=== PATIENT | male | born 1960 | race Caucasian/White ===

== ENCOUNTER 2019-11-23 08:03 | Outpatient (CLI) | payer OTHER, SELFPAY ==
--- NOTE | ~2019-11-23 | US_ITS ---
US arterial ankle brachial ind INDICATION: From vascular disease. Intermittent claudication. TECHNIQUE: Segmental pressures and plethysmographic and Doppler waveforms of the brachial and lower e xtremity arteries were obtained. COMPARISON: None. FINDINGS: Right and left brachial artery pressures of 150 mm Hg and 163 mm Hg, respectively, are concordant (no rmal difference <= 30 mmHg). The right ankle-brachial index (ZACHARY) is 1.16 (normal >= 0.9-1.0). The right great toe-brachial index (TBI) is 0.87 (normal >= 0.60). The left ZACHARY is 1.03. The left TBI is 0.5. IMPRESSION: 1. Diminished left toe brachial index, compatible with mild peripheral arterial disease below the ank le. 2: Normal ankle-brachial indices. Reviewed, dictated and finalized at location A. IMPRESSION: 1. Diminished left toe brachial index, compatible with mild peripheral arterial disease below the ankle. 2: Normal ankle-brachial indices.
== END 2019-11-23 08:04 | disposition home or self-care (01) ==
PROVIDERS: PCP Physician Assistant; Visit Provider Physician Assistant
DX: I73.9 Peripheral vascular disease, unspecified (principal)
CPT/HCPCS: 93922

== ENCOUNTER 2020-06-16 12:34 | Outpatient (CLI) | payer OTHER, MEDICAID, SELFPAY ==
--- NOTE | 2020-06-16 15:00 | NEURO_ITS ---
Patient Number: [id number] Impression: # Known insulin dependent diabetic complains of numbness and weakness of lower extremities. # Severe motor and sensory neuropathy # Needle/EMG exam revealed decreased motor unit potentials in all muscles tested, more distally. # No active denervation potentials were noted. # Severe diabetic neuropathy. Nerve Conduction Studies Anti Sensory Summary Table Stim Site NR Peak (ms) P-T Amp (?V) Site1 Site2 Delta-P (ms) Dist (cm) Cecil (m/s) Left Sup Fibular Anti Sensory (Ant Lat Mall) NO RESPONSE 14 cm NR 14 cm Ant Lat Mall 16.0 Right Sup Fibular Anti Sensory (Ant Lat Mall) NO RESPONSE 14 cm NR 14 cm Ant Lat Mall 16.0 Left Sural Anti Sensory (Lat Mall) NO RESPONSE Calf NR Calf Lat Mall 16.0 Right Sural Anti Sensory (Lat Mall) DISPERSED RESPONSE Calf NR Calf Lat Mall 16.0 Motor Summary Table Stim Site NR Onset (ms) O-P Amp (mV) Site1 Site2 Delta-0 (ms) Dist (cm) Cecil (m/s) Left Peroneal Motor (Vastus Med) NO RESPONSE Ankle NR Popit NR Right Peroneal Motor (Vastus Med) NO RESPONSE Ankle NR Popit NR Left Tibial Motor (Abd Dimas Brev) NO RESPONSE Ankle NR Knee NR Right Tibial Motor (Abd Dimas Brev) NO RESPONSE Ankle NR Knee NR F Wave Studies NR F-Lat (ms) L-R F-Lat (ms) Left Peroneal (Mrkrs) (EDB) NO RESPONSE NR Right Peroneal (Mrkrs) (EDB) NO RESPONSE NR Left Tibial (Mrkrs) (Abd Hallucis) NO RESPONSE NR Right Tibial (Mrkrs) (Abd Hallucis) NO RESPONSE NR EMG Side Muscle Nerve Root Ins Act Fibs Amp Dur Recrt Comment Right AntTibialis Dp Br Fibular L4-5 Nml Nml Nml >12ms Reduced Right Gastroc Tibial S1-2 Nml Nml Nml >12ms Reduced Right Fibularis Long Sup Br Fibular L5-S1 Nml Nml Nml >12ms Reduced Right Flex Dig Long Tibial L5-S2 Nml Nml Nml >12ms Reduced Right Ext Dig Brev Dp Br Fibular L5, S1 Nml Nml Nml >12ms Reduced Left AntTibialis Dp Br Fibular L4-5 Nml Nml Nml >12ms Reduced Left Gastroc Tibial S1-2 Nml Nml Nml >12ms Reduced Left Fibularis Long Sup Br Fibular L5-S1 Nml Nml Nml >12ms Reduced Left Flex Dig Long Tibial L5-S2 Nml Nml Nml >12ms Reduced Left Ext Dig Brev Dp Br Fibular L5, S1 Nml Nml Nml >12ms Reduced Right QuadratusFem QuadFemoris L4-5, S1 Nml Nml Nml >12ms Reduced Left QuadratusFem QuadFemoris L4-5, S1 Nml Nml Nml >12ms Reduced Right ExtHallLong Dp Br Fibular L5, S1 Nml Nml Nml >12ms Reduced Right Ext Dig Long Dp Br Fibular L5-S1 Nml Nml Nml >12ms Reduced Left ExtHallLong Dp Br Fibular L5, S1 Nml Nml Nml >12ms Reduced Left Ext Dig Long Dp Br Fibular L5-S1 Nml Nml Nml >12ms Reduced MTDD
== END 2020-06-16 12:35 | disposition home or self-care (01) ==
LOC: ANHNEURO 12:36
PROVIDERS: PCP Physician Assistant; Visit Provider Physician Assistant
DX: E11.42 Type 2 diabetes mellitus with diabetic polyneuropathy (principal)
CPT/HCPCS: 95886; 95910

== ENCOUNTER 2024-10-14 11:02 | Inpatient (IN) | payer OTHER, MEDICAID, SELFPAY ==
[2024-10-14] VITALS (26 sets, daily range): BP systolic 93–185; BP diastolic 65–90; PULSE 73–114; RESP 14–20; TEMP 36.1–36.8; O2SAT 96–100; BMI 38.5
--- NOTE | ~2024-10-14 | XR_ITS ---
EXAMINATION: XR chest 1V portable DATE: 10/19/2024 15:28 INDICATION: Pneumonia. TECHNIQUE: A single frontal view of the chest was obtained. COMPARISON: Chest single view 10/14/2024 FINDINGS: There is no pneumonia, pleural effusion, or pneumothorax. The heart size is normal. IMPRESSION: 1. No acute cardiopulmonary disease. Reviewed, dictated and finalized at location A. ENTARY ELL TEACHER
--- NOTE | ~2024-10-14 | CT_ITS ---
EXAMINATION: CT brain wo con DATE: 10/14/2024 11:39 INDICATION: Altered level of consciousness. TECHNIQUE: Computed tomography (CT) of the head was performed without intravenous contrast. The mA wa s adjusted according to patient size. Iterative reconstruction technique was employed. The dose-lengt h product was 681.00 mGy-cm. COMPARISON: Head CT 07/04/2017 FINDINGS: There is no intracranial hemorrhage, acute infarction, or abnormal intracranial mass lesion . The ventricles are normal in size. There is mucosal thickening in the paranasal sinuses. There is d ependent fluid in the maxillary sinuses. The orbits are normal. There is a trace left mastoid effusio n. IMPRESSION: 1. Normal brain. Reviewed, dictated and finalized at location A. E FIRST AID IMPRESSION: 1. Normal brain.
--- NOTE | ~2024-10-14 | CT_ITS ---
EXAMINATION: CT chest abdomen pelvis wo con DATE: 10/20/2024 14:37 INDICATION: Anemia. Pneumonia. TECHNIQUE: Computed tomography (CT) of the chest, abdomen, and pelvis was performed without intraveno us contrast. Automated exposure control and iterative reconstruction technique were employed. The dos e-length product was 1829.50 mGy-cm. COMPARISON: None FINDINGS: CHEST CT: There is mild atelectasis bilaterally. There are groundglass and airspace opacities in right lower lo be, consistent with pneumonia. There is a trace right pleural effusion. The heart size is normal. The re are coronary artery calcifications. No pericardial effusion. There is bilateral gynecomastia. Ther e is chronic anterior wedging of multiple vertebral bodies. There is severe thoracic spondylosis. ABDOMEN/PELVIS CT: The liver, gallbladder, spleen, pancreas, and adrenal glands, and kidneys are normal. The prostate is mildly enlarged. There is prominent fat in the inguinal canals that may be hernias. There are no dil ated loops of bowel. The appendix is normal. There are no pathologically enlarged lymph nodes. There is no free intraperitoneal fluid. There is a total right hip arthroplasty. There is severe lumbar spo ndylosis. IMPRESSION: 1. Right lower lobe pneumonia. Reviewed, dictated and finalized at location A. ON TIER
--- NOTE | ~2024-10-14 | XR_ITS ---
EXAMINATION: XR chest 1V DATE: 10/14/2024 11:42 INDICATION: Shortness of breath. TECHNIQUE: A single frontal view of the chest was obtained. COMPARISON: Chest 2 views 03/09/2015 FINDINGS: Sensitivity is decreased by obesity. There is no pneumonia, pleural effusion, or pneumothor ax. The heart size is normal. IMPRESSION: 1. No acute cardiopulmonary disease. Reviewed, dictated and finalized at location A. MODYNAMIC PHYSICIST
--- NOTE | 2024-10-14 11:08 | ECG_ITS ---
Test Date: 2024-10-14 11:09:36 Measurements Intervals [place] Rate: 87 P: -8 MO: 194 QRS: 266 QRSD: 155 T: 15 QT: 418 QTc: 504 Interpretive Statements SINUS RHYTHM RIGHT BUNDLE BRANCH BLOCK LEFT POSTERIOR FASCICULAR BLOCK BASELINE ARTIFACT- I, II, III, AVR, AVL, AVF, V2, V4 ABNORMAL ECG No previous ECG available for comparison Electronically Signed On 10-14-2024 11:17:14 TAPPER HELPER by Nicolás Sims D.O.
--- NOTE | 2024-10-14 11:27 | ED_ITS ---
HPI - SOB/Dyspnea General Chief Complaint: Shortness of Breath/Dyspnea Stated Complaint: SOB Time Seen by Provider: 10/14/24 11:13 History of Present Illness HPI Narrative: Pt presents with SOB for two weeks. Pt diagnosed with Covid 2 weeks ago. Pt reportedly increased SOB. Pt was answering questions for RN and EMS earlier but now staring blankly ahead and not responding to questions from me so difficult to get any history. Pt tachypneic and hypotensive. Related Data Home Medications ?Medication ?Instructions ?Recorded ?Confirmed ?Last Taken ?Type amoxicillin 875 mg-potassium tablet PO Q12H 10/14/24 Unknown History clavulanate 125 mg tablet aspirin 81 mg tablet,delayed mg 10/14/24 Unknown History release bictegravir 50 mg-emtricitabine tablet PO DAILY 10/14/24 Unknown History 200 mg-tenofovir alafenam 25 mg tablet (Biktarvy) carvedilol 6.25 mg tablet mg PO Q12H 10/14/24 Unknown History empagliflozin 25 mg tablet mg PO DAILY 10/14/24 Unknown History (Jardiance) fluoxetine 20 mg capsule mg PO QPM 10/14/24 Unknown History gabapentin 600 mg tablet mg PO Q12H 10/14/24 Unknown History glipizide 10 mg tablet mg PO BID 10/14/24 Unknown History insulin glargine 100 unit/mL (3 unit subcut QPM 10/14/24 Unknown History mL) subcutaneous pen (Lantus Solostar U-100 Insulin) lisinopril 20 tablet PO DAILY 10/14/24 Unknown History mg-hydrochlorothiazide 25 mg tablet naproxen 500 mg tablet mg PO Q12H 10/14/24 Unknown History pravastatin 40 mg tablet mg PO DAILY 10/14/24 Unknown History tamsulosin 0.4 mg capsule mg PO Q24H 10/14/24 Unknown History Allergies Allergy/AdvReac Type Severity Reaction Status Date / Time abacavir Allergy Unknown platelet Verified 10/14/24 16:59 Sulfa (Sulfonamide Allergy Unknown Rash Verified 10/14/24 16:59 Antibiotics) Review of Systems 2 Review of Systems: ROS unobtainable: Yes unobtainable due to mental status PMFSH Surgical History Surgical History (Updated 06/17/23 @ 10:01 by Hillary Cui [facility]) History of tonsillectomy (~1993) Family History Family History (Updated 10/14/24 @ 16:48 by Ninfa Jorge RN) Sibling Acute myocardial infarction Diabetes mellitus Mother Asthma Diabetes mellitus Other Colon cancer Father Chronic obstructive pulmonary disease Social History Social History (Updated 06/13/23 @ 09:48 by Hillary Horn MA) Smoking status: Never smoker Second hand tobacco smoke exposure: Yes Alcohol intake: former Substance use: never Substance use type: does not use Do You Feel Safe in your Home?: Yes Lack of Transportation: No Lack of Food: Never True Current Housing: I Have Housing Concerned About Future Housing: No Difficulty Paying Gas/Electric Bills: No Difficulty Paying for Meds: No Currently Unemployed: No Education: High School Diploma/GED Difficulty w/ Childcare or Family Care: No Gender identity (if verbalized by the patient): Male Spiritual care concerns: No Exam 2 Const: General: confusion Limitations: altered mental status Other: not responding to questions Eyes: EOM: EOMs intact bilaterally Resp: Effort & Inspection: tachypneic Auscultation: crackles Cardio: Rate: tachycardic Rhythm: regular rhythm GI: GI Palp: Yes Soft to palpation Auscultation: normal bowel sounds Skin: General skin exam: normal color Rashes: no rashes Wounds: no wounds Neuro: General: patient oriented x3, moves all extremities, no meningeal signs, no focal motor deficits and CN's II-XI intact bilaterally Cranial nerves: Yes Nystagmus not present Speech: normal speech Gait exam (Neuro): Normal gait present Extrem: General: normal to inspection and no clubbing, cyanosis or edema Psych: Mental Status: mental status grossly normal Affect: normal affect Attitude: cooperative Course Vital Signs Vital signs: Vital Signs Temperature 97.6 F 10/14/24 11:09 Pulse Rate 88 10/14/24 11:09 Respiratory Rate 18 10/14/24 11:09 Blood Pressure 93/75 L 10/14/24 11:09 Pulse Oximetry 96 10/14/24 11:09 Oxygen Delivery Room Air 10/14/24 11:09 Temperature 97.0 F L 10/14/24 16:40 Pulse Rate 85 10/14/24 16:40 Respiratory Rate 20 10/14/24 16:40 Blood Pressure 185/90 H 10/14/24 16:40 Pulse Oximetry 100 10/14/24 16:40 Oxygen Delivery Room Air 10/14/24 11:34 MDM - SOB/Dyspnea MDM Narrative Medical decision making narrative: Pt originally presented with SOB now has altered mental status and low bp. will do septic work up and CT and give bolus of fluids. Pt BP improved, cxr neg. wbc 14k, BUN slight elvated so a bit dry. flu a and rsv pos. Pt says he lives alone and too weak to go home. Pt alert and oriented x 3 now.discussed with Linnea and agrees to admit. Lab Data 10/14/24 11:25 10/14/24 11:25 Labs: Lab Results 10/14/24 10/14/24 10/14/24 Range/Units 11: 11: 12:04 WBC 14.6 H (4.5-10.0) K/mm3 RBC 3.61 L (4.6-6.20) M/mm3 Hgb 10.6 L (14.0-18.0) g/dL Hct 32.3 L (42.0-52.0) % MCV 89.5 (80-100) fl MCH 29.4 (26-34) pg MCHC 32.8 (32-36) g/dl RDW 14.9 H (11.5-14.5) % Plt Count 421 H (150-375) k/mm3 MPV 10.0 (7.4-10.4) fl Immature Gran % (Auto) 2.0 H (0-0.5) % Neut % (Auto) 73.2 H (45.5-73.1) % Lymph % (Auto) 14.6 L (18.3-44.2) % Nicholas % (Auto) 9.3 H (2.6-8.5) % Eos % (Auto) 0.7 (0-4.4) % Baso % (Auto) 0.2 (0.2-1.2) % Lymph # (Auto) 2.13 (0.9-3.2) K/mm3 Nicholas # (Auto) 1.4 H (0.1-0.6) K/mm3 Eos # (Auto) 0.1 (0-0.3) K/mm3 Baso # (Auto) 0.0 (0.0-0.1) K/mm3 Abs Immat Gran (auto) 0.29 H (0.00-0.031) K/mm3 Absolute Neuts (auto) 10.7 H (1.3-6.7) K/mm3 Absolute Nucleated RBC 0.030 H (0.0-0.012) K/mm3 Nucleated RBC % 0.2 (0.0-0.2) % Sodium 135 L (137-145) mmol/L Potassium 4.5 (3.4-5.0) mmol/L Chloride 98 (98-107) mmol/L Carbon Dioxide 15 L (22-30) mmol/L Anion Gap 22 H (4-12) mmol/L BUN 35 H (9-20) mg/dL Creatinine 1.06 (0.7-1.3) mg/dL Estim Creat Clear Calc Not Reportable Estimated GFR > 60 (59 - ) Glucose 210 H (65-110) mg/dL Lactic Acid 2.5 H (0.7-2.0) mmol/L Calcium 8.8 (8.4-10.2) mg/dL Total Bilirubin 1.3 (0.2-1.3) mg/dL AST 31 (17-59) U/L ALT 33 (6-50) U/L Alkaline Phosphatase 94 (38-126) U/L Total Protein 7.0 (6.3-8.2) g/dL Albumin 4.1 (3.5-5.1) g/dL Urine Color Yellow (Yellow) Urine Appearance Clear (Clear) Urine pH 5.0 (5.0-9.0) Ur Specific Montgomery 1.026 (1.001-1.035) Urine Protein Trace (Negative) mg/dL Urine Glucose (UA) 3+ H (Negative) mg/dL Urine Ketones 2+ H (Negative) mg/dL Ur Blood (Man) Negative (Negative) Urine Nitrate Negative (Negative) Urine Bilirubin Negative (Negative) Urine Urobilinogen 1.0 (<2.0) mg/dL Leukocyte Esterase Rfl Negative (Negative) SIGRID/UL Urine RBC 0-2 (0-2) /hpf Urine WBC 0-5 (0-3) /hpf Ur Squamous Epith Cells None seen (Few) /hpf Urine Bacteria None seen /hpf Urine Casts 0-2 Influenza A (RT-PCR) Positive A (Negative) Influenza B (RT-PCR) Negative (Negative) RSV (RT-PCR) Positive A (Negative) SARS-CoV-2 RNA (RT-PCR) Negative (Negative) Discharge Plan Discharge Clinical Impression: Influenza A, Respiratory syncytial virus (RSV) infection, Weakness Patient Disposition: Still a Patient Condition: Stable
[2024-10-14 11:38] LABS: Basophils Percent Auto 0.2 % (0.2-1.2); Eosinophils Absolute Auto 0.1 K/mm3 (0-0.3); Eosinophils Percent Auto 0.7 % (0-4.4); Hematocrit 32.3 % (42.0-52.0); Hemoglobin 10.6 g/dL (14.0-18.0); Immature Granulocyte Absolute 0.29 K/mm3 (0.00-0.031); Lymphocytes Absolute Auto 2.13 K/mm3 (0.9-3.2); Lymphocytes Percent Auto 14.6 % (18.3-44.2); Mean Corpuscular HGB Conc 32.8 g/dl (32-36); Mean Corpuscular Hemoglobin 29.4 pg (26-34); Mean Corpuscular Volume 89.5 fl (80-100); Monocytes Absolute Auto 1.4 K/mm3 (0.1-0.6); Monocytes Percent Auto 9.3 % (2.6-8.5); Neutrophils Absolute Auto 10.7 K/mm3 (1.3-6.7); Neutrophils Percent Auto 73.2 % (45.5-73.1); Nucleated Red Blood Cells Perc 0.2 % (0.0-0.2); Platelet Count Result 421 k/mm3 (150-375); Red Blood Count 3.61 M/mm3 (4.6-6.20); Red Cell Distribution Width 14.9 % (11.5-14.5); White Blood Count 14.6 K/mm3 (4.5-10.0)
[2024-10-14] MEDS: SODIUM CHLORIDE 0.9% IV 1,000 ML 999 ML IV CONT ×2 (11:44→14:03)
[2024-10-14 11:46] LABS: Lactic Acid Reflex 2.5 mmol/L (0.7-2.0)
[2024-10-14 11:47] LABS: Alanine Aminotransferase 33 U/L (6-50); Albumin Level 4.1 g/dL (3.5-5.1); Alkaline Phosphatase 94 U/L (38-126); Anion Gap 22 mmol/L (4-12); Aspartate Amino Transferase 31 U/L (17-59); Bilirubin,Total 1.3 mg/dL (0.2-1.3); Blood Urea Nitrogen 35 mg/dL (9-20); Calcium 8.8 mg/dL (8.4-10.2); Carbon Dioxide 15 mmol/L (22-30); Chloride 98 mmol/L (98-107); Estimated Glomerular Filt Rate > 60; Glucose 210 mg/dL (65-110); Potassium 4.5 mmol/L (3.4-5.0); Sodium 135 mmol/L (137-145)
--- OUTSIDE RECORDS SUMMARY | 2024-10-14 12:06 | XMS_ITS | Patient Health Summary ---
Author Organization [facility] Address [address] [place] [address] Care Team Providers Care Natural Remedy Consultant Name Role Phone Unavailable Primary Care Provider Unavailabl e Note from [facility],non-owned Affiliates and Associated Physician Practices is amultiple site organization consisting of ambulatory clinics and hospital sitesin [place], [place], [place] and [place]. This disclosure is being madepursuant to the Care Everywhere program and may not contain all information available regarding this patient. Last updated 18.[facility] Allergies * Abacavir * Zidovudine(Hematologic) -High Criticality * Sulfa Drugs Medications * Be aware that medications may not be up to date on this document. Alwaysverify current medications with the patient. * glipiZIDE (GLUCOTROL) 5 MG tablet Take 5 mg by mouth daily before breakfast * pravastatin (PRAVACHOL) 40 MG tablet Take 40 mg by mouth once daily * carvedilol (COREG) 6.25 MG tablet Take 6.25 mg by mouth 2 times daily with morning and evening meal * htsvkkjfn-dyrpspaejv-pjitedqpq (ATRIPLA) 600-200-300 MG tablet(Started 07/07/2017) Take 1 tablet by mouth at bedtime Reasons: HIV Disease * lisinopril-hydroCHLOROthiazide (PRINZIDE; ZESTORETIC) 20-25 MG tablet Take 1 tablet by mouth at bedtime Reasons: High Blood Pressure Disorder * insulin detemir (LEVEMIR) vial(Started 07/07/2017) Inject 50 Units subcutaneously daily with breakfast Reasons: Type 2 Diabetes * busPIRone (BUSPAR) 10 MG tablet(Started 07/09/2017) Take 1 tablet by mouth 2 times daily Reasons: Anxiety Disorder 1 refill remaining * FLUoxetine (PROZAC) 20 MG capsule(Started 07/10/2017) Take 1 capsule by mouth once daily Reasons: Depression 1 refill remaining * traZODone (DESYREL) 50 MG tablet(Started 07/09/2017) Take 1 tablet by mouth nightly as needed for Insomnia Reasons: Trouble Sleeping 1 refill remaining Active Problems Problem Noted Date Diagnosed Date Severe episode of recurrent major depressive disorder, without psychotic features 07/06/2017 Social History Tobacco Use Types Packs/Day Years Used Date Smoking Tobacco: Never Smokeless Tobacco: Never Alcohol Use Standard Drinks/Week Comments No 0 (1 standard drink = 0.6 oz pur e alcohol) Sex and Gender Information Value Date Recorded Sex Assigned at Not on file Gender Identity Not on file Sexual Orientation Not on file Last Filed Vital Signs Vital Sign Reading Time Taken Comments Blood Pressure 136/82 07/09/2017 2:12 PM ADAPTIVE PHYSICAL EDUCATION TEACHER Pulse 78 07/09/2017 2:12 PM ADAPTIVE PHYSICAL EDUCATION TEACHER Temperature 37 C (98.6 F) 07/09/2017 2:12 PM ADAPTIVE PHYSICAL EDUCATION TEACHER Respiratory Rate 18 07/09/2017 2:12 PM ADAPTIVE PHYSICAL EDUCATION TEACHER Oxygen Saturation 96% 07/09/2017 2:12 PM ADAPTIVE PHYSICAL EDUCATION TEACHER Inhaled Oxygen Concentration - - Weight 127 kg (280 lb) 07/06/2017 11:10 PM CDT Height 177.8 cm (5' 10 ) 07/06/2017 11:10 PM CDT Body Mass Index 40.18 07/06/2017 11:10 PM CDT Procedures * GLUCOSE - POINT OF CARE(Performed 07/09/2017) * GLUCOSE - POINT OF CARE(Performed 07/09/2017) * GLUCOSE - POINT OF CARE(Performed 07/08/2017) * GLUCOSE - POINT OF CARE(Performed 07/08/2017) * GLUCOSE - POINT OF CARE(Performed 07/08/2017) * GLUCOSE - POINT OF CARE(Performed 07/08/2017) * GLUCOSE - POINT OF CARE(Performed 07/07/2017) * GLUCOSE - POINT OF CARE(Performed 07/07/2017) * GLUCOSE - POINT OF CARE(Performed 07/07/2017) * MRSA + SA DNA PCR PANEL(Performed 07/07/2017) * GLUCOSE - POINT OF CARE(Performed 07/07/2017) Results * (ABNORMAL) GLUCOSE - POINT OF CARE (07/09/2017 11:40 AM ADAPTIVE PHYSICAL EDUCATION TEACHER) Only the most recent of10 resultswithin the time period is included. Glucose WB/POC 208(H) 70 - 125 mg/dL 07/09/2017 11:42 AM ADAPTIVE PHYSICAL EDUCATION TEACHER [facility] Blood BLOOD SPECIMEN / Unknown 07/09/2017 11:40 AM ADAPTIVE PHYSICAL EDUCATION TEACHER 07/09/2017 11:42 AM ADAPTIVE PHYSICAL EDUCATION TEACHER Nik Barnett MD LAB - POINT OF CARE ORDERABLES Performing Organization Address [facility] de Phone Number [address] * (ABNORMAL) MRSA + SA DNA PCR PANEL (07/07/2017 8:50 AM ADAPTIVE PHYSICAL EDUCATION TEACHER) MRSA DNA by PCR Positive(A ) Negative 07/07/2017 10:33 AM ADAPTIVE PHYSICAL EDUCATION TEACHER [facility] Staph aureus PCR Positive(A ) Negative 07/07/2017 10:33 AM [facility] Microbiology SPECIMEN FROM NASAL FOSSAE / Unknown Collection / Unknown 07/07/2017 8:50 AM ADAPTIVE PHYSICAL EDUCATION TEACHER 07/07/2017 9:02 AM ADAPTIVE PHYSICAL EDUCATION TEACHER Narrative [facility] - 07/07/2017 10:33 AM ADAPTIVE PHYSICAL EDUCATION TEACHER Methicillin-resistant Staphylococcus aureus (MRSA) target DNA detected; Staphylococcus aureus (SA) target DNA detected. A positive test does not necessarily indicate the presence of viable organisms. It is however, presumptive for the presence of MRSA or SA. Nik Barnett MD LAB - MICROBIOLOGY O RDERABLES Performing Organization Address [facility] Co de Phone Number [facility] [address] [place] [address]
--- OUTSIDE RECORDS SUMMARY | 2024-10-14 12:06 | XMS_ITS ---
Author Organization [facility] Address [address] [place], [place] [id number] Care Team Providers Care Dermatology Sales Representative Name Role Phone MELISSA ROSENBAUM Primary Care Provider REASON FOR VISIT IOS, I meant Oct 08, 2024 Encounters Encounter Location Date Provider Diagnosis [place] [address] [place], [place] [id number] 10/07/2024 MELISSA ROSENBAUM Plan Of Treatment Next Appt Details Provider Name:MELISSA Flores, 01/07/2025 08:30:00 AM, [address], [place], [place], [id number], Progress Notes * Tad HUDDLESTONDOB:[birth year] (63 yo M)Acc No.[id number]:10/07/2024 Patient: Tad PIEDRA :1960 A ge:63 Y S ex:Male Address:[address] [place] [address] * true * Date: Generated for Printi ng/Faxing/eTransmitting on: 0 10/14/2024 12:06 PM FACILITIES SUPERVISOR
--- OUTSIDE RECORDS SUMMARY | 2024-10-14 12:06 | XMS_ITS | Referral Summary ---
Author Organization [facility] Address [address] [place] [address] Care Team Providers Care Career Development Coordinator Name Role Phone Unavailable Primary Care Provider Unavailabl e Source Comments [facility],non-owned Affiliates and Associated Physician Practices is amultiple site organization consisting of ambulatory clinics and hospital sitesin [place], [place], [place] and [place]. This disclosure is being madepursuant to the Care Everywhere program and may not contain all information available regarding this patient. Last updated 18.[facility] Allergies Active Allergy Reactions Criticality Noted Date Comments Abacavir 07/06/2017 Zidovudine Hematologic High 07/07/2017 Sulfa Drugs 07/06/2017 Medications * Be aware that medications may not be up to date on this document. Alwaysverify current medications with the patient. Medication Sig Dispensed Refills Start Date End Date Status glipiZIDE (GLUCOTROL) 5 MG tablet Take 5 mg by mouth daily before breakfast Active pravastatin (PRAVACHOL) 40 MG tablet Take 40 mg by mouth once daily Active carvedilol (COREG) 6.25 MG tablet Take 6.25 mg by mouth 2 times daily with morning and evening meal Active efavirenz-emtricitab- tenofovir (ATRIPLA) 600-200-300 MG tabletIndications:Hum an Immunodeficiency Virus Disease Take 1 tablet by mouth at bedtime Reasons: HIV Disease 7 Active lisinopril-hydroCHLOR Othiazide (PRINZIDE; ZESTORETIC) 20-25 MG tabletIndications:Hyp ertension Take 1 tablet by mouth at bedtime Reasons: High Blood Pressure Disorder Active insulin detemir (LEVEMIR) vialIndications:Type 2 Diabetes Mellitus Inject 50 Units subcutaneously daily with breakfast Reasons: Type 2 Diabetes 7 Active busPIRone (BUSPAR) 10 MG tabletIndications:Anx iety Disorder Take 1 tablet by mouth 2 times daily Reasons: Anxiety Disorder 60 tablet 1 7 Active FLUoxetine (PROZAC) 20 MG capsuleIndications:De pression Take 1 capsule by mouth once daily Reasons: Depression 30 capsule 1 7 Active traZODone (DESYREL) 50 MG tabletIndications:Ins omnia Take 1 tablet by mouth nightly as needed for Insomnia Reasons: Trouble Sleeping 30 tablet 1 7 Active Active Problems Problem Noted Date Diagnosed Date [...] Comments Blood Pressure 136/82 07/09/2017 2:12 PM INVESTMENT BANKING ASSOCIATE Pulse 78 07/09/2017 2:12 PM INVESTMENT BANKING ASSOCIATE Temperature 37 C (98.6 F) 07/09/2017 2:12 PM INVESTMENT BANKING ASSOCIATE Respiratory Rate 18 07/09/2017 2:12 PM INVESTMENT BANKING ASSOCIATE Oxygen Saturation 96% 07/09/2017 2:12 PM INVESTMENT BANKING ASSOCIATE Inhaled Oxygen Concentration - - Weight 127 kg (280 lb) 07/06/2017 11:10 PM CDT Height 177.8 cm (5' 10 ) 07/06/2017 11:10 PM CDT Body Mass Index 40.18 07/06/2017 11:10 PM CDT Functional Status Functional Status Response Date of Assess ment Is person deaf or have serious hearing difficult y? No 07/09/2017 Is person blind or have serious difficulty seein g? No 07/09/2017 Does person have serious dif ficulty walking/climbing stairs? No 07/09/2017 Does person have difficulty dressing/bathing? No 07/09/2017 Does person have difficulty doing errands alone? No 07/09/2017 Cognitive Status Response Date of Assessm ent Does person have difficulty concentrating/remembering/making decisions? No 07/09/2017 Plan of Treatment Not on file Additional Health Concerns Infection Onset Date Last Indicated MRSA Comment:+ nasal pcr 1107/08/2017 07/08/2017 Advance Directives * Full Code (Latest Code Status on File) Date Activated Date Inactivated Comments 07/07/2017 12:51 AM 07/09/2017 6:22 PM
--- OUTSIDE RECORDS SUMMARY | 2024-10-14 12:06 | XMS_ITS | Referral Summary ---
Author Organization [facility] Address [address] [place] [address] Care Team Providers Care Dry House Tender Name Role Phone Bo Raymond MD Primary Care Provider [phone] Allergies Active Allergy Reactions Criticality Noted Date Comments Abacavir Unknown 03/17/2024 Sulfa (Sulfonamide Antibiotics) Headache Medium Zidovudine Unknown 03/17/2024 Medications lisinopril-hydroCH LOROthiazide (PRINZIDE,ZESTORET IC) 20-25 mg per tablet take 1 tablet by oral route every day 0 0 03/28/20 15 Active insulin glargine (LANTUS SOLOSTAR) 100 unit/mL (3 mL) insulin pen inject 56 by subcutaneous route once as per insulin protocol 0 Syringe 0 05/03/20 15 Active Jardiance 25 mg tabletIndications: type 2 diabetes mellitus Take 1 tablet (25 mg total) by mouth every morning 06/14/20 22 Active FLUoxetine (PROzac) 20 mg capsuleIndications :depression Take 3 capsules (60 mg total) by mouth nightly 05/03/20 22 Active glipiZIDE (GLUCOTROL) 10 mg tabletIndications: type 2 diabetes mellitus Take 1 tablet (10 mg total) by mouth 2 (two) times a day before breakfast and lunch 06/14/20 22 Active Biktarvy 50-200-25 mg tabletIndications: HIV infection Take 1 tablet by mouth every morning 07/03/20 22 Active pravastatin (PRAVACHOL) 40 mg tabletIndications: hyperlipidemia Take 1 tablet (40 mg total) by mouth every morning 08/10/20 22 Active cholecalciferol (Vitamin D3) 5,000 unit tabletIndications: Vitamin D Deficiency,supplem ent Take 1 tablet (5,000 Units total) by mouth every morning Active tamsulosin (FLOMAX) 0.4 mg extended release capsuleIndications :benign prostatic hyperplasia with lower urinary tract sx Take 1 capsule (0.4 mg total) by mouth every morning 11/28/19 24 Active gabapentin (NEURONTIN) 600 mg tablet Take 1 tablet (600 mg total) by mouth 2 (two) times a day 12/13/19 24 Active carvediloL (COREG) 6.25 mg tabletIndications: hypertension Take 1 tablet (6.25 mg total) by mouth 2 (two) times a day with meals 02/28/20 24 Active acetaminophen (TYLENOL) 500 mg tablet Take 2 tablets (1,000 mg total) by mouth every 8 (eight) hours 90 tablet 02/28/20 24 Active senna-docusate (PERICOLACE) 8.6-50 mg Take 2 tablets by mouth 2 (two) times a day May increase to 4 tablets twice daily if needed. HOLD medication for diarrhea. 80 tablet 1 02/28/20 Active Additional Information Patient not taking.Reported on 03/25/2024 ondansetron ODT (ZOFRAN-ODT) 4 mg disintegrating tablet Take 1 tablet (4 mg total) by mouth every 6 (six) hours as needed for nausea or vomiting 30 tablet 02/28/20 Active Additional Information Patient not taking.Reported on 03/25/2024 oxyCODONE (ROXICODONE) 5 mg immediate release tabletIndications: Pain Take 1 tablet (5 mg total) by mouth every 4 (four) hours as needed for pain 30 tablet 02/28/20 24 Active traMADoL (ULTRAM) 50 mg tabletIndications: Post-operative pain Take 1 tablet (50 mg total) by mouth every 6 (six) hours as needed for pain 30 tablet 03/25/20 24 Active naproxen (NAPROSYN) 500 mg tablet 05/08/20 Active Active Problems Problem Noted Date Diagnosed Date Benign prostatic hyperplasia without lower urinary tract symptoms 03/17/2024 Osteoarthritis of right hip, unspecified osteoarthritis type 02/27/2024 Chronic viral hepatitis 07/06/2022 DDD (degenerative disc disease), lumbar 07/06/20 Primary osteoarthritis of right hip 07/06/2022 MOISES (generalized anxiety disorder) 04/04/2022 Moderate episode of recurrent major depressive d isorder 04/04/2022 Polyneuropathy associated with underlying diseas e 04/04/2022 Syphilis 04/04/2022 Hyperlipidemia 05/26/2020 Severe episode of recurrent major depressive disorder, without psychotic features 07/06/2017 Human immunodeficiency virus (HIV) infection Overview (12/08/2016): Human immunodeficiency virus infection Adiposity 03/28/2015 Overview (12/08/2016): Obesity Cardiomyopathy 03/28/2015 Overview (12/08/2016): Nonischemic cardiomyopathy Diabetes mellitus 03/28/2015 Overview (12/08/2016): Diabetes mellitus Hypertensive heart disease with congestive heart failure 03/28/2015 Overview (12/08/2016): Congestive heart failure, unspecified Nonischemic congestive cardiomyopathy (CMS/HCC) 09/02/2013 Overview (12/08/2016): Nonischemic congestive cardiomyopathy Episodic mood disorder 03/02/2009 Overview (12/08/2016): Mood disorder Type 2 diabetes mellitus 03/02/2009 Overview (12/08/2016): Type 2 diabetes Benign hypertension 03/02/2005 Overview (12/08/2016): Benign hypertension Immunizations Name Administration Dates Next Due Influenza, Quadrivalent, Spl it, Intramuscular 11/09/2019,06/18/2017 Influenza, Quadrivalent, Spl it, Preservative Free, Intramuscular 07/06/2022,06/09/2018,07/06/2017 Influenza, Trivalent, Split, Preservative Free, Intradermal 07/06/2022,06/09/2018 Pneumococcal Conjugate PCV 13 06/18/2017, 015 Pneumococcal Polysaccharide PPV23 06/09/2018,09/2009 Tdap 06/18/2017,05/03/2015 Social History Tobacco Use Types Packs/Day Years Used Date Smoking Tobacco: Never Smokeless Tobacco: Never Tobacco Cessation:Counseling Given: Not Answered Alcohol Use Standard Drinks/Week Comments No 0 (1 standard drink = 0.6 oz pur e alcohol) AUDIT-C Answer Date Recorded Q1: How often do you have a drink containing alcohol? Never 02/27/2024 Q2: How many drinks containi ng alcohol do you have on a typical day when you are drinking? Patient does not drink Q3: How often do you have si x or more drinks on one occasion? Never 02/27/2024 Personal Safety Answer Date Recorded Have you ever been in or are you currently in a harmful physical or emotional relationship or is someone making you feel afraid or unsafe? Denies 02/27/2024 Sex and Gender Information Value Date Recorded Sex Assigned at Not on file Legal Sex Male 2:20 AM [employer] Gender Identity Not on file Sexual Orientation Not on file Last Filed Vital Signs Vital Sign Reading Time Taken Comments Blood Pressure 124/60 02/28/2024 11:00 AM CDT Pulse 95 02/28/2024 11:00 AM CDT Temperature 36.3 C (97.3 F) 02/28/2024 10:54 AM CDT Respiratory Rate 16 02/28/2024 11:0 0 AM CDT Oxygen Saturation 93% 02/28/2024 11: 00 AM CDT Inhaled Oxygen Concentration - - Weight 129.5 kg (285 lb 6.4 oz) 024 11:06 AM CDT Height 175.3 cm (5' 9.02 ) 02/27/2024 1 1:06 AM CDT Body Mass Index 42.13 02/27/2024 11:06 AM CDT Plan of Treatment Not on file Medical Devices Implanted Type Area Health Data Administrator Device Identifier Shelf Expiration Date Model / Serial / Lot [employer] Screw Bone Trident Ii L20mm Od6.5mm Low Profile Hexagonal Sterile [id number] - [id number] Implanted:Qty: 1 on 02/27/2024 at [facility] Right: Hip [employer] 10/19/2028 [id number] / / [id number] [employer] Stem Insignia Hip Size 7 High Offset 9039-3909 - [id number] Implanted:Qty: 1 on 02/27/2024 at [facility] Right: Hip [employer] 09/22/2028 [id number] / / [id number] [employer] 44mm Tapered Hip [place] Head Femoral Biolox Nonsterile 6519-1-044 - [id number] Implanted:Qty: 1 on 02/27/2024 at [facility] Right: Hip [employer] 10/28/2028 6519-1-044 / / [id number] [employer] V40 Hip +4mm Offset [place] Taper Sleeve Adapter Titanium 6519-T-204 - [id number] Implanted:Qty: 1 on 02/27/2024 at [facility] Right: Hip [employer] 10/02/2028 6519-T-204 / / [id number] [employer] Liner Acetabular Hip Trident X3 44mm Polyethylene 0 Degree Size F 723-00-44f - [id number] Implanted:Qty: 1 on 02/27/2024 at [facility] Right: Hip [employer] 01/14/2029 723-00-44F / / [id number] [employer] Shell Acetabular Trident Ii Tritanium F Od56mm Hip 5 Screw Hole Cluster Sterile 702-04-56f - [id number] Implanted:Qty: 1 on 02/27/2024 at [facility] Right: Hip [employer] 01/29/2029 702-04-56F / / [id number] Procedures Procedure Name Priority Date/Time Associated Diagnosis Comments EGFR STAT 02/28/2024 2:02 PM CDT HEMOGLOBIN A1C Routine 02/20/2024 3:02 PM CDT Preoperative testing HEPATITIS C ANTIBODY Routine 03/29/2015 9:53 AM CDT LIPID PANEL Routine 03/29/2015 9:53 AM CDT ALBUMIN CREATININE RATIO, URINE Routine 03/29/2015 9:53 AM CDT URINALYSIS AND REFLEX TO MICROSCOPIC Routine 03/29/2015 9:53 AM CDT from Last 3 Months or Most Recently Relevant to Health Maintenance Results * (ABNORMAL) eGFR (02/28/2024 2:02 PM CDT) eGFR 56(L) >=60 mL/min/1. 73 m2 Comment: Interpretive Data Reference Interval Normal >/= 90 mL/min/1.73m2 Mildly decreased* 60 - 89 mL/min/1.73m2 Mildly to moderately decreased 45 - 59 mL/min/1.73m2 Moderately to severely decreased 30 - 44 mL/min/1.73m2 Severely decreased 15 - 29 mL/min/1.73m2 Kidney Failure < 15 mL/min/1.73m2 *Relative to young adult level Estimated glomerular filtration rate is determined by the 2020 CKD-EPI equation recommended by the National Kidney Foundation (A Unifying Approach to GFR Estimation: Recommendations of the NKF-ASK Task Force on Reassessing the Inclusion of Race in Diagnosing Kidney Disease, JASN 2020). The CKD-EPI equation should not be used for patients with unstable renal function and has not been validated in children and those over 70. Current interpretive data was last reviewed 2021. Blood 02/28/2024 2:02 PM CDT 02/28/2024 2:04 PM CDT us Hayley Gomez NP LAB BLOOD ORDERABLES Final Result [facility] [address] [facility] [address] * (ABNORMAL) Hemoglobin A1c (02/20/2024 3:02 PM CDT) Hgb A1C 6.7(H) 4.0 - 5.6 % Estimated Average Glucose 146 mg/dL [facility] Comment: The ADA recommends reporting an estimated Average Glucose (eAG) with all Hemoglobin A1c results using the equation derived from a study of 507 normal and diabetic adults. Minority populations were underrepresented and children were not included. (Diabetes Care 31:4301-2516, 2008). The eAG is not equivalent to a fasting glucose. Blood 02/20/2024 3:02 PM CDT 02/20/2024 3:54 PM CDT Hakeem Gar MD LAB BLOOD ORDERABLES Final Resul t Performing Organization Address [facility] de Phone Number [facility] [address] [facility]. [facility] [place] [address] * (ABNORMAL) Urinalysis reflex to microscopic (03/29/2015 9:53 AM CDT) pH, ur 6.0 5.0 - 8.0 [facility] Color, ur YELLOW YELLOW [facility] Appearance, ur TURBID(A) CLEAR [facility] Bilirubin, ur NEGATIVE NEGATIVE [facility] Ketones, ur NEGATIVE NEGATIVE [facility] Blood, ur NEGATIVE NEGATIVE [facility] Leukocyte esterase, ur NEGATIVE NEGATIVE [facility] Comment: REPORT COMMENT: FASTING:YES Test performed at [facility] [address] [address] Director: BO NICOLE DO,MPH 03/29/2015 9:53 AM CDT Brett Dickerson MD LAB URINE ORDERABLES Final Re sult Performing Organization Address [facility] de Phone Number [facility] * Hepatitis C antibody (03/29/2015 9:53 AM CDT) SIGNAL TO CUT-OFF 0.02 <1.00 [facility] Comment: Test performed at [facility] [id number] [place] [address] Director: BO NICOLE DO,MPH Hep C Ab NON-REACT BENITO NON-REACT BENITO [facility] 03/29/2015 9:53 AM CDT Brett Dickerson MD LAB MICROBIOLOGY - GENERAL OR DERABLES Final Result Performing Organization Address [facility] [place]/[facility] de Phone Number [facility] * Microalbumin / creatinine ratio, urine, random (03/29/2015 9:53 AM CDT) Creatinine, ur 98 20 - 370 mg/dL [facility] Comment: [place] [address] Director: BO NICOLE DO,MPH 03/29/2015 9:53 AM CDT Brett Dickerson MD LAB URINE ORDERABLES Final Re sult Performing Organization Address [facility] de Phone Number [facility] * (ABNORMAL) Lipid panel (03/29/2015 9:53 AM CDT) Cholesterol 227(H) 125 - 200 mg/dL [facility] Comment: Test performed at [facility] [address] [address] Director: BO NICOLE DO,MPH 03/29/2015 9:53 AM CDT Brett Dickerson MD LAB BLOOD ORDERABLES Final Re sult Performing Organization Address [facility] Phone Number [facility] from Last 3 Months or Most Recently Relevant to Health Maintenance Insurance [facility] Advance Directives For more information, please contact: [phone] * Full Code (Latest Code Status on File) Date Activated Date Inactivated Comments 02/27/2024 4:07 PM 02/28/2024 10:24 PM Care Teams Dry House Tender Relationship Specialty Start Date End Date Bo Raymond MD PCP - General Internal Medicine 06/26/22
--- OUTSIDE RECORDS SUMMARY | 2024-10-14 12:06 | XMS_ITS ---
Author Organization [facility] Address [address] [place], [place] [id number] Care Team Providers Care Hospice Art Therapist Name Role Phone MELISSA ROSENBAUM Primary Care Provider Encounters Encounter Location Date Provider Diagnosis [place] [address] [place], [place] [id number] 10/09/2024 MELISSA ROSENBAUM Plan Of Treatment Next Appt Details Provider Name:MELISAS Flores, 01/07/2025 08:30:00 AM, [address], [place], [place], [id number], Progress Notes * Tad HUDDLESTONDOKelsy:[birth year] (63 yo M)Acc No.[id number]:10/09/2024 Patient: Tad PIEDRA :1960 A ge:63 Y S ex:Male [address] [place] [address] * true * Date: Generated for Printi ng/Faxing/eTransmitting on: 0 10/14/2024 12:05 PM INTEL RECRUITER
--- OUTSIDE RECORDS SUMMARY | 2024-10-14 12:06 | XMS_ITS | Clinical Summary ---
Author Organization [facility] Address [address] [place] [address] Care Team Providers Care Foil Wrapper Name Role Phone Unavailable Primary Care Provider Unavailabl e Source Comments PLEASE NOTE, if this patient is a minor, it may be UNLAWFUL to discuss sensitive information that is contained in these records (such as FAMILY PLANNING, MENTAL HEALTH or SUBSTANCE ABUSE) with the minor patient's parent or other person without the patient's specific authorization.[facility] Allergies Active Allergy Reactions Criticality Noted Date Comments Abacavir 07/06/2017 Sulfa (Sulfonamide Antibiotics) 07/06/2017 Zidovudine High 07/07/2017 Other reaction(s): Hematologic, Unknown Medications busPIRone (BUSPAR) 15 mg tablet Take 15 mg by mouth 2 (two) times daily 03/18/2022 Active carvediloL (COREG) 6.25 mg tablet Take 6.25 mg by mouth 2 (two) times daily 02/07/2022 Active JARDIANCE 25 mg tab Take 25 mg by mouth once daily 03/21/2022 Active FLUoxetine (PROZAC) 20 mg capsule Take 60 mg by mouth once daily 02/07/2022 Active insulin glargine (LANTUS SOLOSTAR U-100 INSULIN) 100 unit/mL (3 mL) Inject 60 Units into the skin once daily 05/26/2020 Active lisinopriL-hydr ochlorothiazide 20-25 mg per tablet Take 1 Tablet by mouth once daily 02/21/2022 Active pravastatin (PRAVACHOL) 40 mg tablet Take 40 mg by mouth every evening 02/21/2022 Active gabapentin (NEURONTIN) 400 mg capsule Take 3 Capsules by mouth 2 (two) times daily 540 Capsule 2 06/05/2022 Active glipiZIDE (GLUCOTROL) 10 mg tablet Take 2 Tablets by mouth 2 (two) times daily before a meal 07/06/2022 Active BIKTARVY 50-200-25 mg tab Take 1 Tablet by mouth once daily 30 Tablet 3 08/28/2022 Active naproxen (NAPROSYN) 500 mg tablet Take 1 Tablet by mouth 2 (two) times daily with a meal 60 Tablet 3 09/06/2022 Active Active Problems Problem Noted Date Diagnosed Date Chronic viral hepatitis ([facility]) 07/06/2022 DDD (degenerative disc disease), lumbar 07/06/20 Primary osteoarthritis of right hip 07/06/2022 Asymptomatic HIV infection, with no history of HIV-related illness ([facility]) 04/04/2022 Diabetes mellitus type 2 in obese 04/04/2022 Essential hypertension 04/04/2022 Mixed hyperlipidemia 04/04/2022 Morbid obesity ([facility]) 04/04/2022 Syphilis 04/04/2022 Polyneuropathy associated with underlying diseas e ([facility]) 04/04/2022 Moderate episode of recurren t major depressive disorder ([facility]) 04/04/2022 MOISES (generalized anxiety disorder) 04/04/2022 Immunizations Name Administration Dates Next Due Flu, Preservative Free 07/06/2022 INFLUENZA, SEASONAL, INJECTABLE 06/09/2018 PNEUMOCOCCAL CONJUGATE PCV 13 05/03/2015 PNEUMOCOCCAL POLYSACCHARIDE PPV23 07/03/2010 TDAP 05/03/2015 Family History Medical History Relation Name Comments Alcohol/Drug Abuse Father Lung Disease Father Depression Mother Diabetes Mother High Cholesterol Mother Other Mother Mitral Valve St enosis Relation Name Status Comments Father Mother Social History Tobacco Use Types Packs/Day Years Used Date Smoking Tobacco: Never Assessed Social Connections Answer Date Recorded Connectedness 0 05/15/2024 Financial Resource Strain Answer Date R ecorded Financial Resource Strain 0 2021 Stress Answer Date Recorded Stress 0 04/03/2022 Physical Activity Answer Date Recorded Physical Activity 0 04/03/2022 Food Insecurity Answer Date Recorded Food 0 05/28/2024 Transportation Needs Answer Date Record ed Transportation 0 04/03/2022 Housing Stability Answer Date Recorded Housing 0 04/03/2022 Safety and Environment Answer Date Geovany rded Safety 0 04/03/2022 Utilities Answer Date Recorded Utilities 0 04/03/2022 Employment Answer Date Recorded Stress 0 05/15/2024 Sex and Gender Information Value Date Recorded Sex Assigned at Male 05/16/2022 10:28 AM PDT Legal Sex Male 9:40 AM PDT Gender Identity Male 05/16/2022 10:28 AM PDT Sexual Orientation Nava 05/16/2022 10 :28 AM PDT Last Filed Vital Signs Vital Sign Reading Time Taken Comments Blood Pressure 150/72 07/06/2022 7:58 AM CDT Pulse 66 07/06/2022 7:58 AM CDT Temperature 36.2 C (97.1 F) 07/06/2022 7:58 AM CDT Respiratory Rate - - Oxygen Saturation 99% 07/06/2022 7:58 AM CDT Inhaled Oxygen Concentration - - Weight 130.2 kg (287 lb) 07/06/2022 7:58 AM CDT Height 177.8 cm (5' 10 ) 07/06/2022 7:58 AM CDT Body Mass Index 41.18 07/06/2022 7:58 AM CDT Plan of Treatment Health Maintenance Due Date Last Done Comments Diabetes Foot Exam 1960 Diabetes Microalbumin (w/Creatinine) 1959 Tobacco Screening 1960 Imm-Meningococcal (1 - Risk 2-dose series) 11/07/1961 Retinopathy Screening 11/07/1972 Annual Preventive Care Visit 11/07/1977 Imm-MMR (1 of 2 - Risk 2-dos e series) 11/07/1977 Imm-Zoster, Recombinant (1 of 2) 11/07/1978 CT Colonography 11/07/2004 Colonoscopy 11/07/2004 Colorectal Cancer Screening 11/07/2004 FIT/gFOBT 11/07/2004 Fecal DNA 11/07/2004 Flexible Sigmoidoscopy 11/07/2004 Imm-Pneumococcal (3 of 3 - PPSV23, PCV20 or PCV21) 07/03/2015 05/03/2015, 07/03/2010 Depression Monitoring 07/05/2022 04/04/2022 Diabetes HbA1c 10/06/2022 07/06/2022, 08/0 10/2021, 12/19/2021, Additional history exists Lipid Screening 07/06/2023 07/06/2022, 04/04/2022 Serum Creatinine 07/06/2023 07/06/2022, 04/04/2022 [id number] ( season) 2024 Imm-Influenza (#1) 2024 07/06/2022, 06/09/2018 Alcohol and Drug Screen 09/02/2024 Imm-DTaP/Tdap/Td (2 - Td or Tdap) 05/03/2025 015 Hepatitis C Screening Completed 04/04/2022, 022 Hepatitis B Screening Completed 07/06/2022 , 04/04/2022, 04/04/2022 Imm-Hepatitis A Discontinued Imm-Hepatitis B Discontinued Procedures Procedure Name Priority Date/Time Associated Diagnosis Comments IADNA HEPATITIS B VIRUS QUANTIFICATION Routine 07/06/2022 9:39 AM CDT Chronic viral hepatitis B without delta agent and without coma (HCC-CMS) COMPREHENSIVE METABOLIC PANEL Routine 07/06/2022 9:39 AM CDT Asymptomatic HIV infection, with no history of HIV-related illness (HCC-CMS) LIPID PANEL Routine 07/06/2022 9:39 AM CDT Mixed hyperlipidemia HEMOGLOBIN GLYCOSYLATED A1C Routine 07/06/2022 9:39 AM CDT Diabetes mellitus type 2 in obese (HCC-CMS) HEPATITIS C AB W/RFLX HCV RNA, QT, RT PCR Routine 04/04/2022 5:51 PM CDT Routine adult health maintenance from Last 3 Months or Most Recently Relevant to Health Maintenance Results * HEP B DNA PCR QUANTITATIVE (07/06/2022 9:39 AM CDT) Pathologist [facility] [place] HEPATITIS B VIRAL DNA <10 NOT DETECTED NOT DETECTED [facility] HEPATITIS B VIRUS DNA <1.00 NOT DETECTED NOT DETECTED [facility] Comment: This test was performed using Real-Time Polymerase Chain Reaction. Reportable Range: 10 IU/mL to 1,000,000,000 IU/mL. (1.00 Log IU/mL to 9.00 Log IU/mL). The analytical performance characteristics of this assay have been determined by [employer]. The modifications have not been cleared or approved by the FDA. This assay has been validated pursuant to the CLIA regulations and is used for clinical purposes. Blood Blood / Unknown 07/06/2022 9 :39 AM CDT 07/06/2022 9:40 AM CDT Bo Raymond MD LAB - BLOOD DRAW Final Res ult Performing Organization Address City/[facility]/ZIP Co de Phone Number [facility] [address] [place] [address], [employer] [address] [place] [address] * (ABNORMAL) HEMOGLOBIN, GLYCOSYLATED (A1C) (07/06/2022 9:39 AM CDT) HEMOGLOBIN A1C 7.9(H) <5.7 % of total Hgb [facility] [place] Comment: For someone without known diabetes, a hemoglobin A1c value of 6.5% or greater indicates that they may have diabetes and this should be confirmed with a follow-up test. For someone with known diabetes, a value <7% indicates that their diabetes is well controlled and a value greater than or equal to 7% indicates suboptimal control. A1c targets should be individualized based on duration of diabetes, age, comorbid conditions, and other considerations. Currently, no consensus exists regarding use of hemoglobin A1c for diagnosis of diabetes for children. Blood Blood / Unknown 07/06/2022 9 :39 AM CDT 07/06/2022 9:40 AM CDT Bo Raymond MD LAB - BLOOD DRAW Edited Re sult - Final [employer] [place] [address] [place] [address], [employer] [address] [employer] [place] [address] * LIPID PANEL (07/06/2022 9:39 AM CDT) CHOLESTEROL, TOTAL 137 <200 mg/dL [facility] HDL CHOLESTEROL 42 > OR = 40 mg/dL [facility] TRIGLYCERIDES 71 <150 mg/dL [facility] LDL-CHOLESTEROL 80 99 mg/dL (calc) [facility] Comment: Reference range: <100 Desirable range <100 mg/dL for primary prevention; <70 mg/dL for patients with CHD or diabetic patients with > or = 2 CHD risk factors. LDL-C is now calculated using the Champ calculation, which is a validated novel method providing better accuracy than the Friedewald equation in the estimation of LDL-C. Pradip SS et al. DREA. 2013;310(19): 3014-1337 (http://education.Mythos/faq/YUO169) CHOL/HDLC RATIO 3.3 <5.0 (calc) [facility] NON-HDL CHOLESTEROL 95 <130 mg/dL (calc) [facility] Comment: For patients with diabetes plus 1 major ASCVD risk factor, treating to a non-HDL-C goal of <100 mg/dL (LDL-C of <70 mg/dL) is considered a therapeutic option. Blood Blood / Unknown 07/06/2022 9 :39 AM CDT 07/06/2022 9:40 AM CDT Bo Raymond MD LAB - BLOOD DRAW Final Res ult [facility] [place] [address] [place] [address], [employer] [place] [address] [place] [address] * (ABNORMAL) COMPREHENSIVE METABOLIC PANEL (07/06/2022 9:39 AM CDT) [facility] GLUCOSE 168(H) 65 - 99 mg/dL [facility] Comment: Fasting reference interval For someone without known diabetes, a glucose value >125 mg/dL indicates that they may have diabetes and this should be confirmed with a follow-up test. UREA NITROGEN (BUN) 33(H) 7 - 25 mg/dL [facility] CREATININE (blood) 1.24 0.70 - 1.35 mg/dL [facility] EGFR 66 > OR = 60 mL/min/1.7 3m2 [facility] Comment: The eGFR is based on the CKD-EPI 2020 equation. To calculate the new eGFR from a previous Creatinine or Cystatin C result, go to https://www.kidney.org/professionals/ kdoqi/gfr%5Fcalculator BUN/CREATININE RATIO 27(H) 6 - 22 (calc) [facility] SODIUM 141 135 - 146 mmol/L [facility] POTASSIUM 4.5 3.5 - 5.3 mmol/L [facility] CHLORIDE 103 98 - 110 mmol/L [facility] CARBON DIOXIDE 24 20 - 32 mmol/L [facility] CALCIUM 9.2 8.6 - 10.3 mg/dL [facility] PROTEIN, TOTAL 7.3 6.1 - 8.1 g/dL [facility] ALBUMIN 4.4 3.6 - 5.1 g/dL [facility] GLOBULIN 2.9 1.9 - 3.7 g/dL (calc) [facility] ALBUMIN/GLOBULIN RATIO 1.5 1.0 - 2.5 (calc) [facility] BILIRUBIN, TOTAL 0.6 0.2 - 1.2 mg/dL [facility] ALKALINE PHOSPHATASE 95 35 - 144 U/L [facility] AST 16 10 - 35 U/L [facility] ALT 17 9 - 46 U/L [facility] Blood Blood / Unknown 07/06/2022 9 :39 AM CDT 07/06/2022 9:40 AM CDT us Bo Raymond MD LAB - BLOOD DRAW Edited Re sult - Final [employer] [place] [address] [place] [address], [employer] [place] [address] [place] [address] * HEPATITIS C AB W/RFLX HCV RNA, QT, RT PCR (04/04/2022 5:51 PM CDT) HEPATITIS C ANTIBODY NON-REACT BENITO NON-REACT BENITO [facility] SIGNAL TO CUT-OFF 0.01 <1.00 [facility] Comment: HCV antibody was non-reactive. There is no laboratory evidence of HCV infection. In most cases, no further action is required. However, if recent HCV exposure is suspected, a test for HCV RNA (test code 80047) is suggested. For additional information please refer to http://education.SkillSurvey/faq/JWR44q7 (This link is being provided for informational/ educational purposes only.) Blood Blood / Unknown 04/04/2022 5 :51 PM CDT 04/04/2022 5:52 PM CDT us Bo Raymond MD LAB - BLOOD DRAW Edited Re [facility] - Final [facility] [place] [address] [place] [address], [facility] [address] [place] [address] from Last 3 Months or Most Recently Relevant to Health Maintenance Insurance [employer] Member Subscriber Plan / Payer (Ef fective 2022-Present) Name:Tad Henderson Relation to Subscriber:Self Name:Tad Henderson Payer ID:[id number] Type:Indemnity Address: [facility] [address] [place] [address]
--- OUTSIDE RECORDS SUMMARY | 2024-10-14 12:06 | XMS_ITS | Clinical Summary ---
Author Organization [facility] Address [facility] [place] [address] Care Team Providers Care Photographic Process Screen Maker Name Role Phone Bo Raymond MD Primary Care Provider [phone] Allergies Active Allergy Reactions Criticality Noted Date [...] 015 Pneumococcal Polysaccharide PPV23 06/09/2018,09/2009 Tdap 06/18/2017,05/03/2015 Surgical History Surgery Date Site/Laterality Comments TONSILLECTOMY 09/02/1993 - 09/01/1994 COLONOSCOPY TOOTH EXTRACTION CARDIAC CATHETERIZATION Medical History Medical History Date Comments HIV (human immunodeficiency virus infection) (HC C) Hyperlipidemia HTN (hypertension) DM2 (diabetes mellitus, type 2) (HCC) Depression Anxiety Osteoarthritis Family History Medical History Relation Name Comments Alcohol abuse Father Alcoholism; Lung cancer Father Cancer, lung; Mitral valve prolapse Mother Mitral valve prolapse; Rheumatic fever Mother Rheumatic fe nadira; Anesthesia problems Neg Hx Relation Name Status Comments Father Mother Alive Social History Tobacco Use Types Packs/Day Years [...] on file Legal Sex Male 2:20 AM [employer] Gender Identity Not on file Sexual Orientation Not on file Obstetrics History Last Filed Vital Signs Vital Sign Reading [...] 02/27/2024 11:06 AM CDT Plan of Treatment Health Maintenance Due Date Last Done Comments Colon Cancer Screening-Colonoscopy 1959 Depression Screening 1960 HLA B 5701 Typing 1959 Prostate Cancer Screening-PSA 1959 T Spot (quantiferon gold) 1959 Dilated Eye Exam 1959 Foot Exam 1959 HIV+ Chlamydia and Gonorrhea Screening (Rectal) 11/07/1970 HIV + Chlamydia and Gonorrhe a Screening (Urine) 11/07/1972 HIV+ Chlamydia and Gonorrhea Screening (Throat) 11/07/1972 RPR Screening 11/07/1972 G6PD 11/07/1977 Hepatitis A Screening 11/07/1977 Regular Well Visit/Exam 18-64 11/07/1977 Hepatitis A Vaccines (1 of 2 - Risk 2-dose series) 11/07/1978 Zoster Vaccine (1 of 2) 11/07/1978 Osteoporosis Screening-Bone Density Scan 11/07/2009 Albumin Creatinine Ratio, Urine 03/29/2016 5, 03/29/2015 Hepatitis C Screening 03/29/2016 03/29/2015 Proteinuria screening Urinalysis (UA) 03/29/2016 03/29/2015, 03/29/2015 Hepatitis B Vaccines (1 of 3 - Risk 3-dose series) 2019 Covid-19 Vaccine (2 - Jansse n risk series) 01/09/2021 12/12/2020 Lipid Panel 07/06/2023 07/06/2022, 03/03, 03/29/2015, Additional history exists Influenza Vaccine (#1) 2024 , 07/06/2022, 11/09/2019, Additional history exists Pneumococcal vaccine <65 (4 of 4 - PPSV23 or PCV20) 11/07/2024 06/09/2018, 06/18/2017, 05/03/2015, Additional history exists Hemoglobin A1C 02/19/2025 02/20/2024, 10/03, 03/29/2015 eGFR 02/27/2025 02/28/2024, 02/01, 02/20/2024, Additional history exists DTaP/Tdap/Td Vaccine (3 - Td or Tdap) 06/18/2027 06/18/2017, 05/03/2015 Medical Devices Implanted Type Area Shop Girl Device Identifier Shelf Expiration Date Model / Serial / Lot [employer] Screw Bone Trident Ii L20mm Od6.5mm Low Profile Hexagonal Sterile 2630-9606 - [id number] Implanted:Qty: 1 on 02/27/2024 at [facility] Right: Hip [employer] 10/19/2028 [id number] / / [id number] [employer] Stem Insignia Hip Size 7 High Offset 2849-1817 - [id number] Implanted:Qty: 1 on 02/27/2024 at [facility] Right: Hip [employer] 09/22/2028 0846-8921 / / [id number] [employer] 44mm Tapered Hip Kill Buck Head Femoral Biolox Nonsterile 6519-1-044 - [id number] Implanted:Qty: 1 on 02/27/2024 at [facility] Right: Hip [employer] 10/28/2028 6519-1-044 / / [id number] [employer] V40 Hip +4mm Offset Kill Buck Taper Sleeve Adapter Titanium 6519-T-204 - [id number] Implanted:Qty: 1 on 02/27/2024 at [facility] Right: Hip [employer] 10/02/2028 6519-T-204 / / [id number] [employer] Liner Acetabular Hip Trident X3 44mm Polyethylene 0 Degree Size F 723-00-44f - [id number] Implanted:Qty: 1 on 02/27/2024 at [facility] Right: Hip [employer] 01/14/2029 723-00-44F / / [id number] [employer] Shell Acetabular Trident Ii Tritanium F Od56mm Hip 5 Screw Hole Cluster Sterile 702-04-56f - [id number] Implanted:Qty: 1 on 02/27/2024 at [facility] Right: Hip [employer] 01/29/2029 70--56F / / [id number] Procedures Procedure Name Priority Date/Time Associated Diagnosis [...] of Race in Diagnosing Kidney Disease, JASN 202). The CKD-EPI equation should not be used for patients with unstable renal function and has not been validated in children and those over 70. Current interpretive data was last reviewed 2021. Blood 02/28/2024 2:02 PM CDT 02/28/2024 2:04 PM CDT us Hayley Gomez NP LAB BLOOD ORDERABLES Final Result Performing Organization Address [facility] de Phone Number [facility] [address] [facility] [place] [address] * (ABNORMAL) Hemoglobin A1c (02/20/2024 3:02 PM CDT) Pathologist [facility] Hgb A1C 6.7(H) 4.0 - 5.6 % Estimated Average Glucose 146 mg/dL [facility] Comment: The ADA recommends reporting an estimated Average Glucose (eAG) with all Hemoglobin A1c results using the equation derived from a study of 507 normal and diabetic adults. Minority populations were underrepresented and children were not included. (Diabetes Care 31:5575-1380, 2008). The eAG is not equivalent to a fasting glucose. Blood 02/20/2024 3:02 PM CDT 02/20/2024 3:54 PM CDT Hakeem Gar MD LAB BLOOD ORDERABLES Final Resul t Performing Organization Address [facility] de Phone Number [facility] [address] [facility] [place] [address] * (ABNORMAL) Urinalysis reflex to microscopic (03/29/2015 9:53 AM CDT) [facility] pH, ur 6.0 5.0 - 8.0 [facility] Color, ur YELLOW YELLOW [facility] Appearance, ur TURBID(A) CLEAR [facility] Bilirubin, ur NEGATIVE NEGATIVE [facility] Ketones, ur NEGATIVE NEGATIVE [facility] Blood, ur NEGATIVE NEGATIVE [facility] Leukocyte esterase, ur NEGATIVE NEGATIVE [facility] Comment: REPORT COMMENT: FASTING:YES Test performed at [facility] [place] [address] [place] [address] Director: BO NICOLE DO,MPH 03/29/2015 9:53 AM CDT Brett Dickerson MD LAB URINE ORDERABLES Final Re sult Performing Organization Address [facility] de Phone Number [facility] * Hepatitis C antibody (03/29/2015 9:53 AM CDT) [facility] SIGNAL TO CUT-OFF 0.02 <1.00 [facility] Comment: Test performed at [facility] [employer] [address] [address] Director: BO NICOLE DO,MPH Hep C Ab NON-REACT BENITO NON-REACT BENITO [facility] 03/29/2015 9:53 AM CDT us Brett Dickerson MD LAB MICROBIOLOGY - GENERAL OR DERABLES Final Result Performing Organization Address [facility] de Phone Number [facility] * Microalbumin / creatinine ratio, urine, random (03/29/2015 9:53 AM CDT) [facility] Creatinine, ur 98 20 - 370 mg/dL [facility] Comment: Test performed at [facility] [employer] [address] [address] Director: BO NICOLE DO,MPH 03/29/2015 9:53 AM CDT us Brett Dickerson MD LAB URINE ORDERABLES Final Re sult Performing Organization Address [facility] Phone Number [facility] * (ABNORMAL) Lipid panel (03/29/2015 9:53 AM CDT) [facility] Cholesterol 227(H) 125 - 200 mg/dL [facility] Comment: Test performed at [facility] [address] [address] Director: BO NICOLE DO,MPH 03/29/2015 9:53 AM CDT us Brett Dickerson MD LAB BLOOD ORDERABLES Final Re sult Performing Organization Address [facility] Phone Number [facility] from Last 3 Months or Most Recently Relevant to Health Maintenance Insurance [facility] H[facility]/PPO Address: [place] [address] [facility] HMO/PPO Address: [place] [address] Advance Directives For more information, please contact: [phone] * Full Code (Latest Code Status on File) Date Activated Date Inactivated Comments 02/27/2024 4:07 PM 02/28/2024 10:24 PM Care Teams Photographic Process Screen Maker Relationship Specialty Start Date End Date Bo Raymond MD PCP - General Internal Medicine 06/26/22
--- OUTSIDE RECORDS SUMMARY | 2024-10-14 12:06 | XMS_ITS | Clinical Summary ---
Author Organization [facility] Address [address] [place] [address] Care Team Providers Care Research Program Coordinator Name Role Phone Unavailable Primary Care Provider Unavailabl e Source Comments [facility],non-owned Affiliates and Associated Physician Practices is amultiple site organization consisting of ambulatory [place] and [place]in [place] and [place]. This disclosure is being madepursuant to the Care Everywhere program and may not contain all information available regarding this patient. Last updated 18.[facility] Allergies Active Allergy Reactions Criticality Noted Date [...] Comments Blood Pressure 136/82 07/09/2017 2:12 PM HOME APPLIANCE TECHNICIAN Pulse 78 07/09/2017 2:12 PM HOME APPLIANCE TECHNICIAN Temperature 37 C (98.6 F) 07/09/2017 2:12 PM HOME APPLIANCE TECHNICIAN Respiratory Rate 18 07/09/2017 2:12 PM HOME APPLIANCE TECHNICIAN Oxygen Saturation 96% 07/09/2017 2:12 PM HOME APPLIANCE TECHNICIAN Inhaled Oxygen Concentration - - Weight 127 kg (280 lb) 07/06/2017 11:10 PM CDT Height 177.8 cm (5' 10 ) 07/06/2017 11:10 PM CDT Body Mass Index 40.18 07/06/2017 11:10 PM CDT Plan of Treatment Health Maintenance Due Date Last Done Comments COLOGUARD (AGES 45-75) - COL ON CA SCREENING 1959 COLON MONITORING 1959 COLONOSCOPY - COLON CA SCREENING 1959 CT COLONOGRAPHY - COLON CA SCREENING 1959 Colorectal Cancer Screening 1959 FIT - COLON CA SCREENING 1959 FLEX SIG - COLON CA SCREENING 1959 HEPATITIS C SCREENING 11/03/1977 DTAP/TDAP/TD VACCINES (1 - Tdap) 11/07/1978 PNEUMOCOCCAL VACCINE 50+ (1 of 1 - PCV) 11/07/2009 ZOSTER VACCINE (1 of 2) 11/07/2009 Respiratory Syncytial Virus (RSV) Vaccine Pt: or over 60 yrs (1 - Risk 60-74 years 1-dose series) 2019 COVID-19 VACCINE ( - 2023-2 5 season) 2024 INFLUENZA VACCINE (#1) 2024 DEPRESSION SCREENING 09/02/2024 HIV SCREENING Completed 07/06/2017 HEPATITIS B VACCINE Aged Out No longe r eligible based on patient's age to complete this topic HIB VACCINE Aged Out No longer eligi ble based on patient's age to complete this topic HPV VACCINE Aged Out No longer eligi ble based on patient's age to complete this topic MENINGOCOCCAL (Group B) VACCINE Aged Out No longer eligible based on patient's age to complete this topic MENINGOCOCCAL VACCINE Aged Out No peter adelia eligible based on patient's age to complete this topic PNEUMOCOCCAL VACCINE Aged Out No long er eligible based on patient's age to complete this topic Additional Health Concerns Infection Onset Date Last Indicated MRSA Comment:+ nasal pcr 07/07/17 07/08/2017 07/08/2017 Advance Directives * Full Code (Latest Code Status on File) Date Activated Date Inactivated Comments 07/07/2017 12:51 AM 07/09/2017 6:22 PM
--- OUTSIDE RECORDS SUMMARY | 2024-10-14 12:06 | XMS_ITS | Continuity of Care Document ---
Author Organization [facility] Address [address] [place] [address] Phone Care Team Providers Care Marine Fitter Name Role Phone Emily Shanks APRN Unavailable Unavailable Advance Directives Directive Yes / No Effective Date File Name No Information Encounters Encounter Description Practice Location Reason(s) For Visit Diagnoses Date Provider Providers Copied on Encounter Formerly [facility], [address] [place], [place], [id number], [place] tel:[phone] [facility] No Information Dimitris Emily. [address], [place], [place], [id number], [place]. tel:[phone] Family History Family Member Type Diagnosis Age At Onset No Information Payers Payer name Insurance type Covered republican ID Authoriza tion(s) No Information Social History Type Description Quantity Date Captured Comments Sex Male Smoking Status No Information Vital Signs Date / Time: Height Weight BMI Pulse Rate Blood Pressure Temperature Respiratory Rate Body Surface Area Head Circumference Head Circ. Percentile Wt./Isac. Percentile BMI percentile Pulse Ox Inhaled Ox 160/108 mm[Hg] 69.00 in 110.676 kg (244.00 lbs) 36.0 3 kg/m eter (2) 108 /min 156/100 mm[Hg] 97.90 F 18 /min Chief Complaint And Reason For Visit No Information Reason For Referral Reason For Referral No Information History Of Present Illness Encounter Date Complaint History Of Prese nt Illness No Information Functional Status Date Functional Assessmen t No Information Instructions Date Instruction Additional Infor mation No Information Assessments Type Assessment Date No Information Patient Care Teams Name Effective Dates (start - stop) Status Members No Information
--- OUTSIDE RECORDS SUMMARY | 2024-10-14 12:06 | XMS_ITS ---
Author Organization [facility] Address [address] [place], [place] [id number] Care Team Providers Care Campaign Analyst Name Role Phone MELISSA RAYMOND Primary Care Provider [phone] Allergies Allergen (clinical drug ingredient) Drug/Non Drug Allergy documented on EMR Reaction Allergy Type Onset Date Status abacavir Abacavir Unknown Drug Allergy Active zidovudine Zidovudine Unknown Drug Allergy Activ e REASON FOR VISIT Routine follow up Medications Medication SIG (Take, Route, Frequency, Duration) Notes Start Date End Date Status Biktarvy 50-200-25 MG TAKE 1 TABLET BY M OUTH EVERY DAY for 30 Active FLUoxetine HCl 20 MG TAKE 3 CAPSULES BY MOUTH ONCE DAILY Orally Once a day for 90 days Active glipiZIDE 10 MG 2 tablets Orally twi ce a day for 90 days 10/05/2022 Active Amoxicillin-Pot Clavulanate 875-125 MG 1 tablet Orally every 12 hrs for 7 days 10/08/2024 10/15/2024 Active Gabapentin 600 MG 2 tablets Oral three times a day for 90 days Active Carvedilol 6.25 MG 1 tablet with food O rally Twice a day for 90 days Active Pravastatin Sodium 40 MG 1 tablet Orally Once a day for 90 days Active Naproxen 500 MG 1 tablet with food o r milk as needed Orally every 12 hrs for 90 days Active Lisinopril-hydroCHLOROth iazide 20-25 MG 1 tablet Orally Once a day for 90 days Active Tamsulosin HCl 0.4 MG TAKE 1 CAPSULE BY MOUTH ONCE DAILY for 90 Active Lantus SoloStar 100 UNIT/ML INJECT SUBCUTANEOUSLY 80 UNITS DAILY for 90 Active Jardiance 25 MG TAKE 1 TABLET BY DENISHA ONCE DAILY for 90 Active Social History AUDIT-C (Standard) Question Answer Notes Did you have a drink containing alcohol in the p ast year? No Points 0 Interpretation Negative Section Notes: The patient has a job, stabl [employer] housing, and a vehicle. He denies alcohol, tobacco, or illicit drug use. Vital Signs Temperature 97.6 degrees Fahrenheit 10/08/19 25 Blood pressure systolic 119 mm Hg 10/08/19 25 Blood pressure diastolic 80 mm Hg 025 Heart Rate 94 /min 10/08/2024 Respiratory Rate 18 /min 10/08/2024 Height 70 in 10/08/2024 Weight 284.0 lbs 10/08/2024 BMI 40.75 kg/m2 10/08/2024 Oximetry 95 % 10/08/2024 Height-cm 177.8 cm 10/08/2024 Weight-kg 128.82 kg 10/08/2024 Encounters Encounter Location Date Provider Diagnosis [facility] [address] [place], [place] [id number] 10/08/2024 MELISSA RAYMOND Human immunodeficien cy virus [HIV] disease B20 ; Chronic viral hepatitis B without delta agent and without coma B18.1 ; Type 2 diabetes mellitus without complication, without long-term current use of insulin E11.9 ; Morbid (severe) obesity due to excess calories E66.01 ; Essential (primary) hypertension I10 ; Mixed hyperlipidemia E78.2 ; Bronchitis J40 ; Anxiety F41.9 ; Moderate episode of recurrent major depressive disorder F33.1 and Medically noncompliant Z91.199 Assessments Encounter Date Diagnosis (ICD Code) Assessment Notes Treatment Notes Treatment Clinical Notes Section Notes 10/08/2024 Human immunodeficiency virus [HIV] disease (ICD-10 - B20) The patient will continue the Biktarvy. He is applauded on compliance and encouraged to continue. Will check CBC, BMP, LFTs, Lipid panel, CD4 cell ct, and HIV VL. 10/08/2024 Chronic viral hepatitis B without delta agent and without coma (ICD-10 - B18.1) He will continue the Biktarvy. Will check a hepatitis B VL. 10/08/2024 Type 2 diabetes mellitus without complication, without long-term current use of insulin (ICD-10 - E11.9) He will continue the current therapy and is advised on compliance. He is not currently interested in retrying a GLP1 or being referred to endocrinology. The patient is advised on improved low calorie, low carbohydrate diet, and exercise with the goal of weight loss, blood pressure improvement, cholesterol improvement, and blood sugar improvement. Will check a HgbA1c. 10/08/2024 Morbid (severe) obesity due to excess calories (ICD-10 - E66.01) As above. 10/08/2024 Essential (primary) hypertension (ICD-10 - I10) As above. He will continue the current therapy which is effective. 10/08/2024 Mixed hyperlipidemia (ICD-10 - E78.2) As above. He will continue the current therapy and will check a lipid panel. 10/08/2024 Bronchitis (ICD-10 - J40) He is given augmentin. The patient will call with lack of benefit, change/worsening of symptoms, or any perceived medication side effects. 10/08/2024 Anxiety (ICD-10 - F41.9) The patient will continue the current therapy which he finds helpful. He is offered and declined an adjustment or referral to mental health. He will call with any change/worsening of mood. 10/08/2024 Moderate episode of recurrent major depressive disorder (ICD-10 - F33.1) As above. 10/08/2024 Medically noncompliant (ICD-10 - Z91.199) He is again advised on the need for improved compliance with weight loss, medications, office appointments, and referrals to try and improve his multiple medical conditions. He is encouraged to schedule with his orthopedist and an opthalmologist. He is advised to go for his screening colonoscopy. He is encouraged and declined to go for a sleep study. Plan Of Treatment Medication Medication Name Sig Start Date Stop Date Notes Amoxicillin-Pot Clavulanate 875-125 MG 1 tablet Orally every 12 hrs for 7 days 10/08/2024 10/15/2024 Treatment Notes Assessment Notes Human immunodeficiency virus [HIV] disea se The patient will continue the Biktarvy. He is applauded on compliance and encouraged to continue. Will check CBC, BMP, LFTs, Lipid panel, CD4 cell ct, and HIV VL. Chronic viral hepatitis B wi thout delta agent and without coma He will continue the Biktarvy. Will check a hepatitis B VL. Type 2 diabetes mellitus wit hout complication, without long-term current use of insulin He will continue the current therapy and is advised on compliance. He is not currently interested in retrying a GLP1 or being referred to endocrinology. The patient is advised on improved low calorie, low carbohydrate diet, and exercise with the goal of weight loss, blood pressure improvement, cholesterol improvement, and blood sugar improvement. Will check a HgbA1c. Morbid (severe) obesity due to excess calories As above. Essential (primary) hypertension As abov e. He will continue the current therapy which is effective. Mixed hyperlipidemia As above. He will c ontinue the current therapy and will check a lipid panel. Bronchitis He is given augmenti n. The patient will call with lack of benefit, change/worsening of symptoms, or any perceived medication side effects. Anxiety The patient will con tinue the current therapy which he finds helpful. He is offered and declined an adjustment or referral to mental health. He will call with any change/worsening of mood. Moderate episode of recurren t major depressive disorder As above. Medically noncompliant He is again advis ed on the need for improved compliance with weight loss, medications, office appointments, and referrals to try and improve his multiple medical conditions. He is encouraged to schedule with his orthopedist and an opthalmologist. He is advised to go for his screening colonoscopy. He is encouraged and declined to go for a sleep study. Next Appt Details Follow Up: 3 Months, Reason: Provider Name:MELISSA Flores, 01/07/2025 08:30:00 AM, [address] [place] [address], [phone], Progress Notes * Tad HUDDLESTONDOB:[birth year] (63 yo M)Acc No.[id number]:10/08/2024 Progress Notes Patient: Tad PIEDRA Provider: Irene Raymond M.D. :1960 A ge:63 Y S ex:Male Date:10/08/2024 Address:[address] [place], [place] [id number] Subjective: * Chief Complaints: * R outine follow up * HPI: R outine: Mr. Huddleston is a 63 year old gentleman with HIV who presents for a routine follow-up. He was advised to return in 3 months and has instead returned after 4 months. He reports compliance with his Biktarvy, without any side effects. His last HIV viral load was 39, hepatitis B viral load was undetectable, and CD4 cell count was 570. He complains of 2 weeks of a cough that was nonproductive, but now productive of green sputum, fatigue, decreased appetite with a 9 pound weight loss, and congestion. He has been using otc cold medications with minimal improvement. He denies any fever, chills, or sweats. He had a r ight EDITA and has completed physical therapy, followed up with orthopedics, and had a normal radiograph. He was doing well, but thought he had s trained his right IT band and was referred to PT, but never went. His symptoms have since completely resolved. He remainspost-due for an orthopedic follow up. He remains poorly compliant with diet and exercise and his weight is down 9 pounds, which he attributes to his acute URI. His last HgbA1c worsened from 6.4 to 7.5. Dania goldstein did not feel that the phentermine helped. He is compliant with his diabetic medications and reports that his blood sugars average 200 without lows. Dania goldstein has previously tried and cannot tolerate metformin or Ozempic. He continued the Glipizide and Jardiance. He continued the Lantus at 80 units daily. 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 He complains of intermittent blurry vision, worse in the left eye and has not seen an opthalmologist in 5-6 years. The last time he went, they offered him an injection into the eye for an unclear diagnosis, this freaked him out, and he never went back. His blood pressure is improved today on the current therapy with reported compliance with medications. He continues to have depression and lack of motivation. He weaned himself off of Buspar and remains on high dose Prozac. He does not want to change/increase of medications order be referred to mental health as he is concerned that other medication changes would lead to further weight gain. He specifically denies suicidal ideations. He complains of urinary frequency, urgency, frequency, slow stream, and dribbling. He is now on flomax with good benefit and no side effects. His last colonoscopy was over 10 years ago and he is yet to schedule a follow up. He has daytime somnolence, obesity, and snoring and has no interest in going for a sleep study. D epression screening: PHQ-9 L ittle interest or pleasure in doing things?Several days F eeling down, depressed, or hopeless S everal days T rouble falling or staying asleep, or sleeping too much N ot at all F eeling tired or having little energy M ore than half the days P oor appetite or overeating S ever F eeling bad about yourself or that you are a failure, or have let yourself or your family down N ot at all T rouble concentrating on things, such as reading the newspaper or watching television S ever M oving or speaking so slowly that other people could have noticed; or the opposite, being so fidgety or restless that you have been moving around a lot more than usual N ot at all T houghts that you would be better off or of hurting yourself in some way N ot at all T otal Score 6 I nterpretation M ild Depression * ROS: G en: Good health, No sleep Problems, No fever, 9 pound weight loss, Positive Fatigue Skin: No rash, No itching HEENT: No headaches, Mild sinus congestion, No sore throat, No allergies, No hearing changes, Positive vision changes Respiratory: Positive cough, No SOB, No wheezing Cardiology: No chest pain, No palpitations, No lower extremity edema, No dizziness GI: No abdominal pain, No nausea, No diarrhea/constipation, No blood in the stools, No heartburn : Positive urinary frequency, No discharge, No dysuria, No hematuria Heme: No abnormal bleeding, No easy bruising, No swollen glands Musculoskeletal: Positive arthritis, No weakness Psych: Mild anxiety, Mild depression Colonoscopy: 2013 with polyps. He is due for a repeat. * Medical History: * Surgical History: T onsillectomy Right EDITA * Hospitalization/Major Diagno stic Procedure: * Family History: F ather: . M other: , diagnosed with Type 2 diabetes mellitus without complication, unspecified whether long filler cigar roller machine insulin use, Hypercholesteremia, Mental health disorder.? Mother with mitral valve stenosis. Father with alcohol abuse. * Social History: D rug/Alcohol: A MARTA-C (Standard) D id you have a drink containing alcohol in the past year? N o P oints 0 I nterpretation N egative T he patient has a job, stable housing, and a vehicle. He denies alcohol, tobacco, or illicit drug use. * Medications: T akingJardiance 25 MG Tablet TAKE 1 TABLET BY MOUTH ONCE DAILY Lantus SoloStar 100 UNIT/ML Solution Pen-injector INJECT SUBCUTANEOUSLY 80 UNITS DAILY Tamsulosin HCl 0.4 MG Capsule TAKE 1 CAPSULE BY MOUTH ONCE DAILY Lisinopril-hydroCHLOROthiazide 20- 25 MG Tablet 1 tablet Orally Once a day Pravastatin Sodium 40 MG Tablet 1 tablet Orally Once a day Carvedilol 6.25 MG Tablet 1 tablet with food Orally Twice a day Naproxen 500 MG Tablet 1 tablet with food or milk as needed Orally every 12 hrs Biktarvy 50-200-25 MG Tablet TAKE 1 TABLET BY MOUTH EVERY DAY glipiZIDE 10 MG Tablet 2 tablets Orally twice a day FLUoxetine HCl 20 MG Capsule TAKE 3 CAPSULES BY MOUTH ONCE DAILY Orally Once a day Gabapentin 600 MG Tablet 2 tablets Oral three times a day Medication List reviewed and reconciled with the patientTaking Jardiance 25 MG Tablet TAKE 1 TABLET BY MOUTH ONCE DAILY Taking Lantus SoloStar 100 UNIT/ML Solution Pen-injector INJECT SUBCUTANEOUSLY 80 UNITS DAILY Taking Tamsulosin HCl 0.4 MG Capsule TAKE 1 CAPSULE BY MOUTH ONCE DAILY Taking Lisinopril-hydroCHLOROthiazide 20-25 MG Tablet 1 tablet Orally Once a day Taking Pravastatin Sodium 40 MG Tablet 1 tablet Orally Once a day Taking Carvedilol 6.25 MG Tablet 1 tablet with food Orally Twice a day Taking Naproxen 500 MG Tablet 1 tablet with food or milk as needed Orally every 12 hrs Taking Biktarvy 50-200-25 MG Tablet TAKE 1 TABLET BY MOUTH EVERY DAY Taking glipiZIDE 10 MG Tablet 2 tablets Orally twice a day Taking FLUoxetine HCl 20 MG Capsule TAKE 3 CAPSULES BY MOUTH ONCE DAILY Orally Once a day Taking Gabapentin 600 MG Tablet 2 tablets Oral three times a day Medication List reviewed and reconciled with the patient * Allergies: Z idovudineAbacavirno[Allergies Verified] Objective: * Vitals: B P:119/80mm Hg, HR:94/min, RR:18/min, Temp:97.6F, Oxygen sat %:95%, Wt:284.0lbs, Wt-k.82 kg, Ht: 70 in, Ht-cm: 177.8 cm, BMI:40.75Index, Body Surface Area: 2.52. * Physical Examination: G en: Well nourished, obese, in NAD. Skin: No rash. HEENT: Narrowed posterior pharynx, MACHINE FEED OPERATOR patent, PERRL, Conjunctiva pink, Sclera anicteric, MMM, No thrush, Good dentition. Neck: Thick, Supple, No LAD, No thyromegaly, No carotid bruits. Chest: Coarse breath sounds bilaterally without wheezes. CV: RRR without murmur. Abdomen: Soft, NT, ND, active BS, No HSM. . Not performed. Extremity: No cyanosis or clubbing. Trace lower extremity edema, right grreater than left. 2+ radial/DP pulses bilaterally. Neuro: Gait slow, A&O x 4, CN 2-12 intact bilaterally, Reflexes 2+ brachial and patellar, Motor 5/5 throughout, Sensory normal grossly. Assessment: * Assessment: 1. H uman immunodeficiency virus [HIV] disease - B20 (Primary) 2 . C hronic viral hepatitis B without delta agent and without coma - B18.1 3 . T ype 2 diabetes mellitus without complication, without long-term current use of insulin - E11.9 4. M orbid (severe) obesity due to excess calories - E66.01 5 . E ssential (primary) hypertension - I10 6 . M ixed hyperlipidemia - E78.2 7 . B ronchitis - J40 8 . A nxiety - F41.9 9 . M oderate episode of recurrent major depressive disorder - F33.1 1 0. M edically noncompliant - Z91.199 Plan: * Treatment: 2. C hronic viral hepatitis B without delta agent and without coma Notes: He will continue the Biktarvy. Will check a hepatitis B VL. 3. T ype 2 diabetes mellitus without complication, without long-term current use of insulin Notes: He will continue the current therapy and is advised on compliance. He is not currently interested in retrying a GLP1 or being referred to endocrinology. The patient is advised on improved low calorie, low carbohydrate diet, and exercise with the goal of weight loss, blood pressure improvement, cholesterol improvement, and blood sugar improvement. Will check a HgbA1c. 4. M orbid (severe) obesity due to excess calories Notes: As above. 5. E ssential (primary) hypertension Notes: As above. He will continue the current therapy which is effective. 6. M ixed hyperlipidemia Notes: As above. He will continue the current therapy and will check a lipid panel. 7. B ronchitis Start Amoxicillin-Pot Clavulanate Tablet, 875-125 MG, 1 tablet, Orally, every 12 hrs, 7 days, 14 Tablet, Refills 0. Notes: He is given augmentin. The patient will call with lack of benefit, change/worsening of symptoms, or any perceived medication side effects. 8. A nxiety Notes: The patient will continue the current therapy which he finds helpful. He is offered and declined an adjustment or referral to mental health. He will call with any change/worsening of mood.? 9. M oderate episode of recurrent major depressive disorder Notes: As above. 10. M edically noncompliant Notes: He is again advised on the need for improved compliance with weight loss, medications, office appointments, and referrals to try and improve his multiple medical conditions. He is encouraged to schedule with his orthopedist and an opthalmologist. He is advised to go for his screening colonoscopy. He is encouraged and declined to go for a sleep study. * Procedure Codes: 3 6415 VENIPUNCT, ROUTINE* * Follow Up: 3 Months * Billing Information: * Visit Code: 79092 Office Visit, Est Pt., Level 5. * Procedure Codes: 66454 VENIPUNCT, ROUTINE*. * ET SERVER Sign off status: Completed true * Provider: Irene Raymond M.D. Date: 0 10/08/2024 Generated for Kyra vargas/Jero/Markyitting on: 0 10/14/2024 12:05 PM BUFFET SERVER History and Physical Notes * HPI (History of Present Illness) Category Sub-Category Detail Notes Category Not es Depression screening PHQ-9 Little inte rest or pleasure in doing things: Several days Feeling down, depressed, or hopeless: Se veral days Trouble falling or staying asleep, or sl eeping too much: Not at all Feeling tired or having little energy: M ore than half the days Poor appetite or overeating: Several day s Feeling bad about yourself o r that you are a failure, or have let yourself or your family down: Not at all Trouble concentrating on thi ngs, such as reading the newspaper or watching television: Several days Moving or speaking so slowly that other people could have noticed; or the opposite, being so fidgety or restless that you have been moving around a lot more than usual: Not at all Thoughts that you would be b juliann off or of hurting yourself in some way: Not at all Total Score: 6 Interpretation: Mild Depression Routine Mr. Huddleston is a 63 year old gentleman with HIV who presents for a routine follow-up. He was advised to return in 3 months and has instead returned after 4 months. He reports compliance with his Biktarvy, without any side effects. His last HIV viral load was 39, hepatitis B viral load was undetectable, and CD4 cell count was 570. He complains of 2 weeks of a cough that was nonproductive, but now productive of green sputum, fatigue, decreased appetite with a 9 pound weight loss, and congestion. He has been using otc cold medications with minimal improvement. He denies any fever, chills, or sweats. He had a right EDITA and has completed physical therapy, followed up with orthopedics, and had a normal radiograph. He was doing well, but thought he had strained his right IT band and was referred to PT, but never went. His symptoms have since completely resolved. He remainspost-due for an orthopedic follow up. He remains poorly compliant with diet and exercise and his weight is down 9 pounds, which he attributes to his acute URI. His last HgbA1c worsened from 6.4 to 7.5. He did not feel that the phentermine helped. He is compliant with his diabetic medications and reports that his blood sugars average 200 without lows. He has previously tried and cannot tolerate metformin or Ozempic. He continued the Glipizide and Jardiance. He continued the Lantus at 80 units daily. 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 He complains of intermittent blurry vision, worse in the left eye and has not seen an opthalmologist in 5-6 years. The last time he went, they offered him an injection into the eye for an unclear diagnosis, this freaked him out, and he never went back. His blood pressure is improved today on the current therapy with reported compliance with medications. He continues to have depression and lack of motivation. He weaned himself off of Buspar and remains on high dose Prozac. He does not want to change/increase of medications order be referred to mental health as he is concerned that other medication changes would lead to further weight gain. He specifically denies suicidal ideations. He complains of urinary frequency, urgency, frequency, slow stream, and dribbling. He is now on flomax with good benefit and no side effects. His last colonoscopy was over 10 years ago and he is yet to schedule a follow up. He has daytime somnolence, obesity, and snoring and has no interest in going for a sleep study. Physical Examination Category Sub-Category Detail Notes Section Note s Gen: Well cyndi shed, obese, in NAD. Skin: No rash. HEENT: Narrowed posterior pharynx, MACHINE FEED OPERATOR patent, PERRL, Conjunctiva pink, Sclera anicteric, MMM, No thrush, Good dentition. Neck: Thick, Supple, No LAD, No thyromegaly, No carotid bruits. Chest: Coarse breath sounds bilaterally without wheezes. CV: RRR without murmur. Abdomen: Soft, NT, ND, active BS, No HSM. . Not performed. Extremity: No cyanosis or clubbing. Trace lower extremity edema, right grreater than left. 2+ radial/DP pulses bilaterally. Neuro: Gait slow, A&O x 4, CN 2-12 intact bilaterally, Reflexes 2+ brachial and patellar, Motor 5/5 throughout, Sensory normal grossly.
--- OUTSIDE RECORDS SUMMARY | 2024-10-14 12:06 | XMS_ITS | Patient Health Record ---
Author Organization [facility], [facility] Address [address] [place] [address] Support Name Relationship Address Phone Santiago Tad Guarantor Unknown [phone] Reason For Referral No Information Medications Medication SIG (Take, Route, Frequency, Duration) Notes Start Date End Date Status Atripla [phone] take 1 tablet by o ra ORAL 05/08/2012 Active Venlafaxine HCl ER 150mg take 2 Capsule 300MG ORAL 08/18/2012 Active Lantus SoloStar 100 unit/mL(3 mL) inject 30 Units und SUB-Q 05/15/2012 Active Immunizations Vaccine Route Administration Date Status Comme nts Pneumococcal conjugate PCV 13 (Prevnar 13) IM Intramuscular 05/03/2015 Administered Tdap (Boostrix, Adacel) IM Intramuscular 05/03/2015 Admini stered Pneumococcal polysaccharide PPV23 (Pneumovax 23) IM Intramuscular 07/03/2010 Administered Plan Of Treatment No Information Insurance Providers Payer Name Payer Address Payer Phone Subscriber Number Group Number Insured Name Patient Relationship to Insured Coverage Start Date Coverage End Date [facility] [address] [place] [address] [id number] Tad Henderson Self - patient is the insured 5
--- OUTSIDE RECORDS SUMMARY | 2024-10-14 12:07 | XMS_ITS | Clinical Summary ---
Author Organization [facility] Address [address] [place] [address] Phone Care Team Providers Care Campus Safety Officer Name Role Phone Ulysses Jessie PAC Primary Care Provider Allergies Active Allergy Reactions Criticality Noted Date Comments Sulfa Antibiotics Unknown 07/06/2017 Zidovudine Unknown High 07/07/2017 Medications Biktarvy 50-200-25 MG Tablet 0 Active busPIRone (BUSPAR) 15 MG Tablet 0 Active carvedilol (COREG) 6.25 MG Tablet Take by mouth. Activ e FLUoxetine (PROzac) 20 MG Capsule Take by mouth. 7 Active gabapentin (NEURONTIN) 400 MG Capsule 0 Active lisinopril-hydr oCHLOROthiazide (PRINZIDE, ZESTORETIC) 20-25 MG Tablet 0 Active pravastatin (PRAVACHOL) 40 MG Tablet Take by mouth. Activ e glipiZIDE (GLUCOTROL) 10 MG Tablet Take 1 Tab by mouth 2 times daily. 180 Tab 1 0 Active Insulin Pen Needle (Pen [place]) 32G X 5 MM Misc Twice a day 200 Each 3 0 Active insulin glargine (Lantus SoloStar) 100 UNIT/ML Solution Pen-injector 30 Units by Subcutaneous route every 12 hours. 30 mL 3 0 Active Glucose Blood (OneTouch Verio) Strip Test blood blood glucose 2x daily 200 Strip 3 0 Active Blood Glucose Monitoring Suppl (TapShieldTouch Verio) w/Device Kit 1 Kit by Does not apply route daily. Use to test glucose 2x daily 1 Kit 0 Active OneTouch Delica Lancets 33G Misc 1 Lancet by Does not apply route 2 times daily. Test blood glucose 2x daily. 200 Lancet 3 0 Active Semaglutide,0.2 5 or 0.5MG/DOS, (Ozempic, 0.25 or 0.5 MG/DOSE,) 2 MG/1.5ML Solution Pen-injector 0.25 mg SC weekly for 4 weeks, 0.5 mg SC weekly for 4 weeks, and increase it to 1 mg SC weekly 3 mL 2 Active Jardiance 25 MG Tablet TAKE 1 TABLET BY MOUTH DAILY 30 Tablet 3 Active Active Problems Problem Noted Date Diagnosed Date Type 2 diabetes mellitus wit h diabetic polyneuropathy, with long-term current use of insulin 05/26/2020 Class 3 severe obesity due t o excess calories with serious comorbidity and body mass index (BMI) of 40.0 to 44.9 in adult 05/26/2020 Hyperlipidemia 05/26/2020 High blood pressure 05/26/2020 Family History Medical History Relation Name Comments Arthritis Father Hypertension Father Arthritis Mother Relation Name Status Comments Father Mother Social History Tobacco Use Types Packs/Day Years Used Date Smoking Tobacco: Never Smokeless Tobacco: Never Tobacco Cessation:Counseling Given: No Alcohol Use Standard Drinks/Week Comments Never 0 (1 standard drink = 0.6 oz pur e alcohol) AUDIT-C Answer Date Recorded Q1: How often do you have a drink containing alc ohol? Never 05/26/2020 Average Number of Drinks Not on file 020 Frequency of Binge Drinking Not on file 05/04 Sex and Gender Information Value Date Recorded Sex Assigned at Not on file Legal Sex Male 11:11 AM CDT Gender Identity Not on file Sexual Orientation Not on file Last Filed Vital Signs Vital Sign Reading Time Taken Comments Blood Pressure 110/72 12/19/2021 3:49 PM CDT Pulse 65 12/19/2021 3:49 PM CDT Temperature 36.2 C (97.1 F) 12/19/2021 3:49 PM CDT Respiratory Rate 18 12/19/2021 3:49 PM CDT Oxygen Saturation 94% 12/19/2021 3:49 PM CDT Inhaled Oxygen Concentration - - Weight 131.5 kg (290 lb) 12/19/2021 3:49 PM CDT Height 177.8 cm (5' 10 ) 12/19/2021 3:49 PM CDT Body Mass Index 41.61 12/19/2021 3:49 PM CDT Plan of Treatment Health Maintenance Due Date Last Done Comments Diabetes: Eye Exam 1960 Diabetes: Foot Exam 1960 Hepatitis C Virus (HCV) Screening 1960 Colonoscopy 11/07/2004 Colorectal Cancer Screening 11/07/2004 Cologuard 11/07/2009 Immunochemical Fecal Occult Blood 11/07/2009 Zoster Immunization (1 of 2) 11/07/2009 PSA Discussion 11/07/2014 Respiratory Syncytial Virus (RSV) Immunization (Adult) (1 - Risk 60-74 years 1-dose series) 2019 Diabetes: Nephropathy Screening 05/26/2021 05/26/2020, 05/26/2020 Diabetes: Hemoglobin A1c 04/15/202310/16/ 023, 07/06/2022, 12/19/2021, Additional history exists Pneumococcal Immunization (50+ years) (3 of 3 - PCV20 or PCV21) 06/09/2023 06/09/2018, 06/18/2017, 05/03/2015, Additional history exists Influenza Immunization (#1) 2024 11/0 12/2021, 11/09/2019, 06/09/2018, Additional history exists SARS-COV-2 Immunization (2 - season) 2024 12/12/2020 DTaP/Tdap/Td Immunization Discontinued 06/18/2017, 09/2014 TdaP Immunization Completed 06/18/2017, 05/03/2015 Pneumococcal Immunization Combined Discontinued 06/09/2018, 06/18/2017, 05/03/2015, Additional history exists Hepatitis B Immunization Aged Out No longer eligible based on patient's age to complete this topic Meningococcal Immunization (ACWY) Aged Out No longer eligible based on patient's age to complete this topic Rotavirus Immunization Aged Out No lo nger eligible based on patient's age to complete this topic Procedures Procedure Name Priority Date/Time Associated Diagnosis Comments POCT GLYCOSYLATED HEMOGLOBIN Routine 12/19/2021 4:01 PM CDT Type 2 diabetes mellitus with diabetic polyneuropathy, with long-term current use of insulin (HCC) CMP (COMPREHENSIVE METABOLIC PANEL) Routine 05/26/2020 9:45 AM CDT Type 2 diabetes mellitus with diabetic polyneuropathy, with long-term current use of insulin (HCC) from Last 3 Months or Most Recently Relevant to Health Maintenance Results * (ABNORMAL) POCT GLYCOSYLATED HEMOGLOBIN (12/19/2021 4:01 PM CDT) HGB-A1C 7.8(A) 4 - 6 12/19/2021 4:01 PM CDT Trish Kothari MD POINT OF CARE TESTING (MANUAL) F inal Result * (ABNORMAL) CMP (COMPREHENSIVE METABOLIC PANEL) (05/26/2020 9:45 AM CDT) SODIUM 139 136 - 144 mmol/L 05/26/2020 1:06 PM CDT [facility] POTASSIUM 4.8 3.5 - 5.1 mmol/L 05/26/2020 1:06 PM CDT [facility] CHLORIDE 102 100 - 110 mmol/L 05/26/2020 1:06 PM CDT [facility] CO2, VENOUS 26 22 - 32 mmol/L 05/26/2020 1:06 PM CDT [facility] ANION GAP 15.8 8.0 - 20.0 mmol/L 05/26/2020 1:06 PM CDT [facility] GLUCOSE 211(H) 70 - 99 mg/dL 05/26/2020 1:06 PM CDT [facility] BUN 28(H) 8 - 23 mg/dL 05/26/2020 1:06 PM CDT [facility] CREATININE, BLOOD 1.00 0.80 - 1.30 mg/dL 05/26/2020 1:06 PM CDT [facility] BUN/CREATININE RATIO 28(H) 12 - 20 ratio 05/26/2020 1:06 PM CDT [facility] TOTAL PROTEIN 6.8 6.0 - 8.3 g/dL 05/26/2020 1:06 PM CDT [facility] ALBUMIN 4.2 3.5 - 5.2 g/dL 05/26/2020 1:06 PM CDT [facility] Comment: The colormetric methods used for the determination of Albumin may lead to falsely elevated test results in patients suffering from renal failure or insufficiency due to interference with other proteins. A/G RATIO 1.6 1.0 - 2.0 05/26/2020 1:06 PM CDT [facility] CALCIUM 9.2 8.9 - 10.3 mg/dL 05/26/2020 1:06 PM CDT [facility] T BILI 0.3 <=1.2 mg/dL 05/26/2020 1:06 PM CDT [facility] SGOT (AST) 16 <=40 U/L 05/26/2020 1:06 PM CDT [facility] SGPT (ALT) 18 <=41 U/L 05/26/2020 1:06 PM CDT [facility] ALKALINE PHOSPHATASE 115 40 - 130 U/L 05/26/2020 1:06 PM CDT [facility] GFR, EST. NONAFRICAN >60 >=60 05/26/2020 1:06 PM CDT [facility] GFR, EST. >60 >=60 020 1:06 PM CDT [facility] Comment: Creatinine Clearance is the preferred criteria for selecting drug dose adjustments in renally impaired patients. The GFR is provided as additional pertinent clinical information. GFR is reported in mL/min/1.73 sq m. Blood Venipuncture / Unknown 05/26/2020 9:45 AM CDT 05/26/2020 12:29 PM CDT us Trish Kothari MD CHEMISTRY ORDERABLES Final Resul t [facility] [address] [place] [address] from Last 3 Months or Most Recently Relevant to Health Maintenance Insurance MEDICAID [facility] Care Teams Campus Safety Officer Relationship Specialty Start Date End Date Faina Arora PAC [address] [place] [address] PCP - General Physician Retail Property Manager 03/23/20
[2024-10-14 12:14] LABS: Add Urine Microscopic? YES; Appearance Urine Clear (Clear); Bacteria Urine None Seen /hpf; Bilirubin Urine Negative (Negative); Blood Urine Negative (Negative); Color Urine Yellow (Yellow); Glucose Urine UA 3+ mg/dL (Negative); Ketones Urine 2+ mg/dL (Negative); Leukocyte Esterase Ur Negative LEU/UL (Negative); Nitrate Urine Negative (Negative); Non Pathogenic Casts 0-2; Protein Urine Trace mg/dL (Negative); RBC Urine 0-2 /hpf (0-2); Specific Grav Ur 1.026 (1.001-1.035); Squamous Epithelial Cell Urine None Seen /hpf (Few); WBC Urine 0-5 /hpf (0-3)
[2024-10-14 12:27] LABS: Influenza A QL RT-PCR Positive (Negative); Influenza B QL RT-PCR Negative (Negative); RSV RNA, RT-PCR Positive (Negative); SARS-CoV-2 RNA PCR Negative (Negative)
[2024-10-14 14:35] LABS: Reflex Lactic Acid Yes or No Add Lactic
[2024-10-14 16:33] LABS: Glucose Point of Care 165 mg/dl (65-105)
[2024-10-14 16:58] LABS: Lactic Acid 1.8 mmol/L (0.7-2.0)
--- NOTE | 2024-10-14 17:10 | PC.NURSE ---
This patient, Tad Henderson, was admitted to [facility] Surg Room 310-01. Patient/family oriented to hospital policies and general routines including ID bracelet, bed and alarms, visiting hours, pain management, procedures, bathroom and other care routines, personal items, smoking policy, room service/diet, and visiting hours. Information on how to activate the Rapid Response Team has been discussed. Patient/Family are encouraged to report perceived risks to care and to ask questions if they do not understand what they are told or what they should do.
[2024-10-14] MEDS: LACTATED RINGERS 1,000 ML 125 ML IV CONT (17:34)
--- NOTE | 2024-10-14 19:28 | P.HP_ITS ---
H&P: HPI History of Present Illness Date/Time: 10/14/24 19:28 Chief Complaint: Shortness of breath Narrative: 63-year-old past medical history of HIV compliant with medications, 2 weeks ago the patient was diagnosed with bronchitis male presents the hospital with shortness of breath. Patient states that he has had COVID in the past but that was a while ago. Patient states that his breathing has progressively gotten worse over the last week and at that antibiotic is provider prescribed was not working. Today he had to call EMS because he was unable to catch his breath.. Patient complains of increased weakness and frequent cough. Denies nausea or vomiting. Patient is positive for influenza a and RSV now. Review of Systems Review of Systems: 12 systems were reviewed and are negativ e except for as per HPI. PMFSH Past Medical History Medical History (Updated 10/14/24 @ 23:01 by Linnea Potter APRN) Hypertension BPH (benign prostatic hyperplasia) HIV (human immunodeficiency virus infection) COVID Surgical History Surgical History (Updated 06/17/23 @ 10:01 by Hillary Cui CMA) History of tonsillectomy (~1993) Family History Family History (Updated 10/14/24 @ 16:48 by Ninfa Jorge RN) Sibling Acute myocardial infarction Diabetes mellitus Mother Asthma Diabetes mellitus Other Colon cancer Father Chronic obstructive pulmonary disease Social History Social History (Updated 06/13/23 @ 09:48 by Hillary Horn MA) Smoking status: Never smoker Second hand tobacco smoke exposure: Yes Alcohol intake: former Substance use: never Substance use type: does not use Do You Feel Safe in your Home?: Yes Lack of Transportation: No Lack of Food: Never True Current Housing: I Have Housing Concerned About Future Housing: No Difficulty Paying Gas/Electric Bills: No Difficulty Paying for Meds: No Currently Unemployed: No Education: High School Diploma/GED Difficulty w/ Childcare or Family Care: No Gender identity (if verbalized by the patient): Male Spiritual care concerns: No Meds Home Medications and Allergies Home Medications ?Medication ?Instructions ?Recorded ?Confirmed ?Type amoxicillin 875 mg-potassium 1 tablet PO Q12H 10/14/24 10/14/24 History clavulanate 125 mg tablet aspirin 81 mg tablet,delayed 81 mg PO BID 10/14/24 10/14/24 History release bictegravir 50 mg-emtricitabine 1 tablet PO DAILY 10/14/24 10/14/24 History 200 mg-tenofovir alafenam 25 mg tablet (Biktarvy) carvedilol 6.25 mg tablet 6.25 mg PO BID 10/14/24 10/14/24 History empagliflozin 25 mg tablet 25 mg PO DAILY 10/14/24 10/14/24 History (Jardiance) fluoxetine 20 mg capsule 20 mg PO QPM 10/14/24 10/14/24 History gabapentin 600 mg tablet 600 mg PO Q12H 10/14/24 10/14/24 History glipizide 10 mg tablet 10 mg PO BID 10/14/24 10/14/24 History insulin glargine 100 unit/mL (3 300 unit subcut QPM 10/14/24 10/14/24 History mL) subcutaneous pen (Lantus Solostar U-100 Insulin) lisinopril 20 1 tablet PO DAILY 10/14/24 10/14/24 History mg-hydrochlorothiazide 25 mg tablet naproxen 500 mg tablet 500 mg PO Q12H 10/14/24 10/14/24 History pravastatin 40 mg tablet 40 mg PO DAILY 10/14/24 10/14/24 History tamsulosin 0.4 mg capsule 0.4 mg PO HS 10/14/24 10/14/24 History Allergies Allergy/AdvReac Type Severity Reaction Status Date / Time abacavir Allergy Unknown platelet Verified 10/14/24 16:59 Sulfa (Sulfonamide Allergy Unknown Rash Verified 10/14/24 16:59 Antibiotics) Vital Signs Vital Signs - 24 hr 10/14/24 11:09 10/14/24 11:27 10/14/24 11:34 Temperature 97.6 F Pulse Rate 88 105 H Respiratory Rate 18 19 Blood Pressure 93/75 L Pulse Oximetry 96 99 99 Oxygen Delivery Room Air Room Air 10/14/24 12:05 10/14/24 12:16 10/14/24 12:17 Temperature Pulse Rate 114 H 97 88 Respiratory Rate 17 17 17 Blood Pressure 143/74 H Pulse Oximetry Oxygen Delivery 10/14/24 12:30 10/14/24 12:45 10/14/24 12:47 Temperature Pulse Rate 101 H 96 105 H Respiratory Rate 18 16 19 Blood Pressure 139/71 Pulse Oximetry 100 Oxygen Delivery 10/14/24 13:00 10/14/24 13:18 10/14/24 13:30 Temperature Pulse Rate 87 79 81 Respiratory Rate 16 16 15 Blood Pressure Pulse Oximetry 99 98 Oxygen Delivery 10/14/24 13:32 10/14/24 14:03 10/14/24 14:15 Temperature Pulse Rate 81 99 80 Respiratory Rate 16 14 16 Blood Pressure 138/71 Pulse Oximetry 98 99 Oxygen Delivery 10/14/24 14:17 10/14/24 14:45 10/14/24 14:47 Temperature Pulse Rate 81 81 88 Respiratory Rate 16 15 16 Blood Pressure 140/74 139/65 Pulse Oximetry Oxygen Delivery 10/14/24 15:00 10/14/24 15:01 10/14/24 15:15 Temperature Pulse Rate 87 96 82 Respiratory Rate 18 16 16 Blood Pressure 138/67 Pulse Oximetry Oxygen Delivery 10/14/24 15:16 10/14/24 15:30 10/14/24 16:40 Temperature 97.0 F L Pulse Rate 97 82 85 Respiratory Rate 18 18 20 Blood Pressure 132/69 185/90 H Pulse Oximetry 100 Oxygen Delivery Exam Narrative: General: No acute distress HEENT: normocephalic, atraumatic. Mucous membranes moist. EOMI, PERRLA, bilateral sclera anicteric, no conjunctival injection. Neck supple without JVD, lymphadenopathy, or bruit. Respiratory: Dry cough, diminished Cardiovascular: Regular rate and rhythm, normal S1-S2 upon ascultation. No murmurs, rubs, or clicks. PMI is nondisplaced, capillary refill less than 3 second. Abdomen: Obese Soft, round, no pulsatile masses, nondistended and nontender. No rebound, no guarding. No CVA tenderness, no hepatosplenomegaly. Bowel sounds present to all four quadrants. No high pitch or tinkling sounds, resonant to percussion. Extremities: No cyanosis, clubbing, or edema present. Pulses are palpable 2/2. Active ROM to all four extremities. Neuro: Alert and orientated x 4. PERRLA. Cranial nerves 2-12 intact without focal deficit. Skin: Warm, dry, and intact, without rash, erythema, or lesion. Psych: pleasant, cooperative, normal speech, normal affect, no hallucinations, no dysarthia H&P: Results Labs Labs: Short CBC 10/14/24 Range/Units 11:25 WBC 14.6 H (4.5-10.0) K/mm3 Hgb 10.6 L (14.0-18.0) g/dL Hct 32.3 L (42.0-52.0) % Plt Count 421 H (150-375) k/mm3 BMP 10/14/24 11:25 Sodium 135 L Potassium 4.5 Chloride 98 Carbon Dioxide 15 L BUN 35 H Creatinine 1.06 Glucose 210 H Calcium 8.8 Liver Function 10/14/24 Range/Units 11:25 Total Bilirubin 1.3 (0.2-1.3) mg/dL AST 31 (17-59) U/L ALT 33 (6-50) U/L Alkaline Phosphatase 94 (38-126) U/L Albumin 4.1 (3.5-5.1) g/dL Urine 10/14/24 Range/Units 12:04 Urine Color Yellow (Yellow) Urine Appearance Clear (Clear) Urine pH 5.0 (5.0-9.0) Ur Specific [place] 1.026 (1.001-1.035) Urine Protein Trace (Negative) mg/dL Urine Glucose (UA) 3+ H (Negative) mg/dL Assessment and Plan Assessment and plan (1) Influenza A: Code(s): J10.1 - Influenza due to other identified influenza virus with other respiratory manifestations Status: Acute Assessment and Plan: Tamiflu Robitussin DuoNeb (2) Respiratory syncytial virus (RSV) infection: Code(s): B33.8 - Other specified viral diseases Status: Acute Assessment and Plan: Supportive care Guaifenesin Isolation (3) HIV (human immunodeficiency virus infection): Code(s): B20 - Human immunodeficiency virus [HIV] disease Status: Acute Assessment and Plan: Continue biktarvy (4) Weakness: Code(s): R53.1 - Weakness Status: Acute Assessment and Plan: PT OT evaluate and treat Hydration (5) Hypertension: Code(s): I10 - Essential (primary) hypertension Status: Acute Assessment and Plan: Continue home medications (6) BPH (benign prostatic hyperplasia): Code(s): N40.0 - Benign prostatic hyperplasia without lower urinary tract symptoms Status: Acute Assessment and Plan: Continue medications Quality VTE Prophylaxis VTE prophylaxis: mechanical ordered and pharmacologic ordered Hospitalist MIPS Advance Care Plan I have confirmed that the patient's Advanced Care Plan is present, code status is documented, or surrogate decision maker is listed in patient medical record.: Yes Medication Reconciliation I have utilized all available resources to obtain, update and review the patients current medications (includes all prescriptions, OTC, herbals, cannabis, and nutritional supplements).: Yes
[2024-10-14 20:39] LABS: Glucose Point of Care 241 mg/dl (65-105)
[2024-10-14] MEDS: guaiFENesin/DEXTROMETHORPHAN 10 ML UDC PO (20:54)
[2024-10-14] MEDS: OSELTAMIVIR PHOSPHATE 75 MG CAPSULE PO (20:54)
[2024-10-14] MEDS: INSULIN ASPART (*BKC) 100 UNITS/ML SUB-Q (20:58)
[2024-10-15] VITALS (7 sets, daily range): BP systolic 100–141; BP diastolic 55–72; PULSE 67–82; RESP 12–20; TEMP 35.9–36.7; O2SAT 96–98
[2024-10-15 06:22] LABS: Basophils Percent Auto 0.3 % (0.2-1.2); Eosinophils Absolute Auto 0.2 K/mm3 (0-0.3); Eosinophils Percent Auto 1.8 % (0-4.4); Hematocrit 26.8 % (42.0-52.0); Hemoglobin 8.7 g/dL (14.0-18.0); Immature Granulocyte Absolute 0.24 K/mm3 (0.00-0.031); Immature Granulocyte Percent A 1.8 % (0-0.5); Lymphocytes Absolute Auto 2.42 K/mm3 (0.9-3.2); Lymphocytes Percent Auto 18.4 % (18.3-44.2); Mean Corpuscular HGB Conc 32.5 g/dl (32-36); Mean Corpuscular Hemoglobin 29.6 pg (26-34); Mean Corpuscular Volume 91.2 fl (80-100); Mean Platelet Volume 10.1 fl (7.4-10.4); Monocytes Absolute Auto 1.4 K/mm3 (0.1-0.6); Monocytes Percent Auto 10.6 % (2.6-8.5); Neutrophils Absolute Auto 8.8 K/mm3 (1.3-6.7); Neutrophils Percent Auto 67.1 % (45.5-73.1); Nucleated Red Blood Cells Perc 0.2 % (0.0-0.2); Platelet Count Result 317 k/mm3 (150-375); Red Blood Count 2.94 M/mm3 (4.6-6.20); Red Cell Distribution Width 15.2 % (11.5-14.5); White Blood Count 13.2 K/mm3 (4.5-10.0)
[2024-10-15 07:33] LABS: Anion Gap 16 mmol/L (4-12); Blood Urea Nitrogen 24 mg/dL (9-20); Calcium 8.2 mg/dL (8.4-10.2); Carbon Dioxide 19 mmol/L (22-30); Chloride 101 mmol/L (98-107); Estimated CRCL calculation 99 ml/min; Estimated Glomerular Filt Rate > 60; Glucose 151 mg/dL (65-110); Potassium 4.2 mmol/L (3.4-5.0); Sodium 136 mmol/L (137-145)
[2024-10-15 08:09] LABS: Glucose Point of Care 169 mg/dl (65-105)
[2024-10-15] MEDS: carvediloL 6.25 MG TABLET PO ×2 (08:25→20:44)
[2024-10-15] MEDS: ENOXAPARIN 40 MG/0.4 ML SYRINGE SUB-Q (08:25)
[2024-10-15] MEDS: OSELTAMIVIR PHOSPHATE 75 MG CAPSULE PO ×2 (08:25→20:44)
[2024-10-15] MEDS: GABAPENTIN 300 MG CAPSULE 600 MG PO ×2 (08:25→20:44)
[2024-10-15] MEDS: hydroCHLOROthiazide 25 MG TABLET PO (08:25)
[2024-10-15] MEDS: lisinopriL 20 MG TABLET PO (08:25)
[2024-10-15] MEDS: PRAVASTATIN SODIUM 20 MG TABLET 40 MG PO (08:26)
[2024-10-15] MEDS: guaiFENesin/DEXTROMETHORPHAN 10 ML UDC PO ×5 (08:26→23:49)
[2024-10-15] MEDS: EMTRICITABINE PO (08:26)
[2024-10-15] MEDS: [UNRECOGNIZED DRUG - OTHER] PO (08:26)
--- NOTE | 2024-10-15 08:38 | P.PNIM_ITS ---
Progress Note: A&P Assessment and Plan (1) Influenza A: Code(s): J10.1 - Influenza due to other identified influenza virus with other respiratory manifestations Status: Acute Assessment and Plan: Tamiflu Robitussin DuoNeb (2) Respiratory syncytial virus (RSV) infection: Code(s): B33.8 - Other specified viral diseases Status: Acute Assessment and Plan: Supportive care Guaifenesin Isolation (3) HIV (human immunodeficiency virus infection): Code(s): B20 - Human immunodeficiency virus [HIV] disease Status: Acute Assessment and Plan: Continue biktarvy (4) Weakness: Code(s): R53.1 - Weakness Status: Acute Assessment and Plan: PT OT evaluate and treat Hydration received some fluid in the ER (5) Hypertension: Code(s): I10 - Essential (primary) hypertension Status: Acute Assessment and Plan: Continue home medications (6) BPH (benign prostatic hyperplasia): Code(s): N40.0 - Benign prostatic hyperplasia without lower urinary tract symptoms Status: Acute Assessment and Plan: Continue medications Plan Anemia could be hemodilution no does have baseline anemia 10.6 on arrival. Check FOBT. Iron profile. No prior levels available. Lactic acidosis this has resolved. Subjective Date/time seen: 10/15/24 08:38 Interval history: No overnight events. Cough present. Weakness present. Not on oxygen. Denies any new complaints. Review of Systems Review of Systems: All systems reviewed & are unremarkable except as noted in HPI and below Exam Narrative: General: No acute distress alert and oriented x3 HEENT: normocephalic, atraumatic. Mucous membranes moist. EOMI, PERRLA, bilateral sclera anicteric, no conjunctival injection. Neck supple without JVD, lymphadenopathy, or bruit. Respiratory: Dry cough, diminished Cardiovascular: Regular rate and rhythm, normal S1-S2 upon ascultation. Abdomen: Obese Soft, distended and nontender. Extremities: No cyanosis, clubbing, or edema present. Pulses are palpable 2/2. Active ROM to all four extremities. Neuro: Alert and orientated x 4. PERRLA. Cranial nerves 2-12 intact without focal deficit. Skin: Warm, dry, and intact, without rash, erythema, or lesion. Psych: pleasant, cooperative, normal speech, normal affect, no hallucinations, no dysarthia Objective Data Vital Signs Vital Signs: Vital Signs - 24 hr 10/14/24 11:09 10/14/24 11:27 10/14/24 11:34 Temperature 97.6 F Pulse Rate 88 105 H Respiratory Rate 18 19 Blood Pressure 93/75 L Pulse Oximetry 96 99 99 Oxygen Delivery Room Air Room Air 10/14/24 12:05 10/14/24 12:16 10/14/24 12:17 Temperature Pulse Rate 114 H 97 88 Respiratory Rate 17 17 17 Blood Pressure 143/74 H Pulse Oximetry Oxygen Delivery 10/14/24 12:30 10/14/24 12:45 10/14/24 12:47 Temperature Pulse Rate 101 H 96 105 H Respiratory Rate 18 16 19 Blood Pressure 139/71 Pulse Oximetry 100 Oxygen Delivery 10/14/24 13:00 10/14/24 13:18 10/14/24 13:30 Temperature Pulse Rate 87 79 81 Respiratory Rate 16 16 15 Blood Pressure Pulse Oximetry 99 98 Oxygen Delivery 10/14/24 13:32 10/14/24 14:03 10/14/24 14:15 Temperature Pulse Rate 81 99 80 Respiratory Rate 16 14 16 Blood Pressure 138/71 Pulse Oximetry 98 99 Oxygen Delivery 10/14/24 14:17 10/14/24 14:45 10/14/24 14:47 Temperature Pulse Rate 81 81 88 Respiratory Rate 16 15 16 Blood Pressure 140/74 139/65 Pulse Oximetry Oxygen Delivery 10/14/24 15:00 10/14/24 15:01 10/14/24 15:15 Temperature Pulse Rate 87 96 82 Respiratory Rate 18 16 16 Blood Pressure 138/67 Pulse Oximetry Oxygen Delivery 10/14/24 15:16 10/14/24 15:30 10/14/24 16:40 Temperature 97.0 F L Pulse Rate 97 82 85 Respiratory Rate 18 18 20 Blood Pressure 132/69 185/90 H Pulse Oximetry 100 Oxygen Delivery 10/14/24 20:00 10/14/24 20:22 10/14/24 22:03 Temperature 97.3 F L 98.2 F Pulse Rate 75 73 Respiratory Rate 16 16 Blood Pressure 142/70 H 143/70 H Pulse Oximetry 97 97 Oxygen Delivery Room Air 10/15/24 04:00 10/15/24 08:00 Temperature 96.7 F L 97.1 F L Pulse Rate 67 77 Respiratory Rate 17 20 Blood Pressure 141/66 H 137/72 Pulse Oximetry 98 98 Oxygen Delivery Intake/Output Intake/Output: Intake & Output 10/12/24 10/13/24 10/14/24 10/15/24 23:59 23:59 23:59 23:59 Intake Total 2240 2100 Output Total 1325 Balance 2240 775 Meds/Results Medications: Active Medications Generic Name Dose Route Start Last Admin Trade Name Freq PRN Reason Stop Dose Admin Acetaminophen 650 mg 10/14/24 19:30 Acetaminophen 325 Mg Tablet PO Q4H PRN Mild Pain (1-3) or Fever Carvedilol 6.25 mg 10/14/24 23:05 10/15/24 08:25 Carvedilol 6.25 Mg Tablet PO 6.25 mg Q12HR [facility] Administration Dextrose 12.5 gm 10/14/24 19:30 Dextrose 50% 25 Gm/50 Ml Syringe IV PUSH PRN PRN Hypoglycemia Protocol Enoxaparin Sodium 40 mg 10/15/24 09:00 10/15/24 08:25 Enoxaparin 40 Mg/0.4 Ml Syringe SUB-Q 40 mg DAILY [facility] Administration Fluoxetine HCl 20 mg 10/14/24 23:05 10/15/24 01:49 Fluoxetine Hcl 20 Mg Capsule PO Not Given QPM [facility] Gabapentin 600 mg 10/14/24 22:55 10/15/24 08:25 Gabapentin 300 Mg Capsule PO 600 mg Q12HR [facility] Administration Glucagon 1 mg 10/14/24 19:30 Glucagon For Inj 1 Mg Vial IM PRN PRN Hypoglycemia Protocol Glucose 15 gm 10/14/24 19:30 Glucose Oral Gel 15 Gm Of Glucse In 37.5 Gm Tube PO PRN PRN Hypoglycemia Protocol Guaifenesin/Dextromethorphan 10 ml 10/14/24 19:30 10/15/24 08:26 Guaifenesin/Dextromethorphan 10 Ml Udc PO 10 ml Q4H [facility] Administration Hydrochlorothiazide 25 mg 10/15/24 09:00 10/15/24 08:25 Hydrochlorothiazide 25 Mg Tablet PO 25 mg DAILY [facility] Administration Dextrose 1,000 mls @ 100 mls/hr 10/14/24 19:30 Dextrose 5% 1,000 Ml IVPB PRN PRN Hypoglycemia Protocol Insulin Aspart 2 - 5 units 10/15/24 08:00 10/15/24 08:23 Insulin Aspart (*Bkc) 100 Units/Ml SUB-Q Not Given TIDWM [facility] Protocol Insulin Aspart 1 - 2 units 10/14/24 21:00 10/14/24 20:58 Insulin Aspart (*Bkc) 100 Units/Ml SUB-Q 1 units HS [facility] Administration Protocol Insulin Glargine 24 units 10/15/24 21:00 Insulin Glargine (*Bkc) 100 Units/Ml 0.2 units/kg (24 units) SUB-Q HS [facility] Lisinopril 20 mg 10/15/24 09:00 10/15/24 08:25 Lisinopril 20 Mg Tablet PO 20 mg DAILY [facility] Administration Non-Formulary ( 1 each 10/15/24 09:00 10/15/24 08:26 Bictegravir Sodium/ PO 11/14/24 08:59 1 each Emtricitabine/ DAILY [facility] Administration Tenofovir Alafenamide Fumar 50 Mg-...) Oseltamivir Phosphate 75 mg 10/14/24 21:00 10/15/24 08:25 Oseltamivir Phosphate 75 Mg Capsule PO 10/19/24 20:59 75 mg Q12HR [facility] Administration Pravastatin Sodium 40 mg 10/15/24 09:00 10/15/24 08:26 Pravastatin Sodium 20 Mg Tablet PO 40 mg DAILY [facility] Administration Tamsulosin HCl 0.4 mg 10/14/24 23:05 10/15/24 01:49 Tamsulosin Hcl 0.4 Mg Capsule PO Not Given [facility] Radiology Results: ITS Impressions Head CT 10/14/24 11:41 IMPRESSION: 1. Normal brain. Chest X-Ray 10/14/24 11:43 IMPRESSION: 1. No acute cardiopulmonary disease. Labs Labs: Laboratory Results - last 24 hr 10/14/24 10/14/24 10/14/24 11:25 11:27 12:04 WBC 14.6 H RBC 3.61 L Hgb 10.6 L Hct 32.3 L MCV 89.5 MCH 29.4 MCHC 32.8 RDW 14.9 H Plt Count 421 H MPV 10.0 Immature Gran % (Auto) 2.0 H Neut % (Auto) 73.2 H Lymph % (Auto) 14.6 L [place] % (Auto) 9.3 H Eos % (Auto) 0.7 Baso % (Auto) 0.2 Lymph # (Auto) 2.13 [place] # (Auto) 1.4 H Eos # (Auto) 0.1 Baso # (Auto) 0.0 Abs Immat Gran (auto) 0.29 H Absolute Neuts (auto) 10.7 H Absolute Nucleated RBC 0.030 H Nucleated RBC % 0.2 Sodium 135 L Potassium 4.5 Chloride 98 Carbon Dioxide 15 L Anion Gap 22 H BUN 35 H Creatinine 1.06 Estim Creat Clear Calc Not Reportable Estimated GFR > 60 Glucose 210 H POC Capillary Glucose Lactic Acid 2.5 H Calcium 8.8 Total Bilirubin 1.3 AST 31 ALT 33 Alkaline Phosphatase 94 Total Protein 7.0 Albumin 4.1 Urine Color Yellow Urine Appearance Clear Urine pH 5.0 Ur Specific [place] 1.026 Urine Protein Trace Urine Glucose (UA) 3+ H Urine Ketones 2+ H Ur Blood (Man) Negative Urine Nitrate Negative Urine Bilirubin Negative Urine Urobilinogen 1.0 Leukocyte Esterase Rfl Negative Urine RBC 0-2 Urine WBC 0-5 Ur Squamous Epith Cells None seen Urine Bacteria None seen Urine Casts 0-2 Influenza A (RT-PCR) Positive A Influenza B (RT-PCR) Negative RSV (RT-PCR) Positive A SARS-CoV-2 RNA (RT-PCR) Negative 10/14/24 10/14/24 10/14/24 16:31 16:36 20:30 WBC RBC Hgb Hct MCV MCH MCHC RDW Plt Count MPV Immature Gran % (Auto) Neut % (Auto) Lymph % (Auto) [place] % (Auto) Eos % (Auto) Baso % (Auto) Lymph # (Auto) [place] # (Auto) Eos # (Auto) Baso # (Auto) Abs Immat Gran (auto) Absolute Neuts (auto) Absolute Nucleated RBC Nucleated RBC % Sodium Potassium Chloride Carbon Dioxide Anion Gap BUN Creatinine Estim Creat Clear Calc Estimated GFR Glucose POC Capillary Glucose 165 H 241 H Lactic Acid 1.8 Calcium Total Bilirubin AST ALT Alkaline Phosphatase Total Protein Albumin Urine Color Urine Appearance Urine pH Ur Specific [place] Urine Protein Urine Glucose (UA) Urine Ketones Ur Blood (Man) Urine Nitrate Urine Bilirubin Urine Urobilinogen Leukocyte Esterase Rfl Urine RBC Urine WBC Ur Squamous Epith Cells Urine Bacteria Urine Casts Influenza A (RT-PCR) Influenza B (RT-PCR) RSV (RT-PCR) SARS-CoV-2 RNA (RT-PCR) 10/15/24 10/15/24 05:34 07:26 WBC 13.2 H RBC 2.94 L Hgb 8.7 L Hct 26.8 L MCV 91.2 MCH 29.6 MCHC 32.5 RDW 15.2 H Plt Count 317 MPV 10.1 Immature Gran % (Auto) 1.8 H Neut % (Auto) 67.1 Lymph % (Auto) 18.4 [place] % (Auto) 10.6 H Eos % (Auto) 1.8 Baso % (Auto) 0.3 Lymph # (Auto) 2.42 [place] # (Auto) 1.4 H Eos # (Auto) 0.2 Baso # (Auto) 0.0 Abs Immat Gran (auto) 0.24 H Absolute Neuts (auto) 8.8 H Absolute Nucleated RBC 0.020 H Nucleated RBC % 0.2 Sodium 136 L Potassium 4.2 Chloride 101 Carbon Dioxide 19 L Anion Gap 16 H BUN 24 H D Creatinine 0.86 Estim Creat Clear Calc 99 Estimated GFR > 60 Glucose 151 H POC Capillary Glucose 169 H Lactic Acid Calcium 8.2 L Total Bilirubin AST ALT Alkaline Phosphatase Total Protein Albumin Urine Color Urine Appearance Urine pH Ur Specific [place] Urine Protein Urine Glucose (UA) Urine Ketones Ur Blood (Man) Urine Nitrate Urine Bilirubin Urine Urobilinogen Leukocyte Esterase Rfl Urine RBC Urine WBC Ur Squamous Epith Cells Urine Bacteria Urine Casts Influenza A (RT-PCR) Influenza B (RT-PCR) RSV (RT-PCR) SARS-CoV-2 RNA (RT-PCR)
[2024-10-15 09:02] LABS: Immature Reticulocyte Fraction 30.5 % (3.0-15.9); Reticulocyte Percent 7.37 % (0.7-4.3); Reticulocytes Absolute 0.21 10^6/uL (0.02-0.10)
[2024-10-15 09:34] LABS: Iron 33 ug/dL (49-181)
[2024-10-15 09:43] LABS: Percent Iron Saturation 12 % (20-50)
[2024-10-15 10:49] LABS: Folic Acid 11.3 ng/mL (2.76->20); Vitamin B12 > 1000.0 pg/mL (239-931)
[2024-10-15 11:51] LABS: Glucose Point of Care 255 mg/dl (65-105)
[2024-10-15] MEDS: INSULIN ASPART (*BKC) 100 UNITS/ML SUB-Q ×3 (12:28→20:48)
[2024-10-15] MEDS: FLUoxetine HCL 20 MG CAPSULE PO (16:48)
[2024-10-15 17:01] LABS: Glucose Point of Care 256 mg/dl (65-105)
[2024-10-15 20:20] LABS: Glucose Point of Care 248 mg/dl (65-105)
[2024-10-15] MEDS: TAMSULOSIN HCL 0.4 MG CAPSULE PO (20:44)
[2024-10-15] MEDS: ACETAMINOPHEN 325 MG TABLET 650 MG PO (20:44)
[2024-10-15] MEDS: INSULIN GLARGINE (*BKC) 100 UNITS/ML 24 UNITS SUB-Q (20:49)
[2024-10-15 21:32] LABS: IFOB Positive Control Positive; Immunochemical Fecal Occult Bl Negative (N)
[2024-10-16] VITALS (8 sets, daily range): BP systolic 86–119; BP diastolic 49–94; PULSE 68–86; RESP 14–20; TEMP 35.9–36.8; O2SAT 95–99
[2024-10-16] MEDS: guaiFENesin/DEXTROMETHORPHAN 10 ML UDC PO ×5 (04:27→22:51)
[2024-10-16 06:27] LABS: Basophils Percent Auto 0.2 % (0.2-1.2); Eosinophils Absolute Auto 0.2 K/mm3 (0-0.3); Eosinophils Percent Auto 2.5 % (0-4.4); Hematocrit 24.1 % (42.0-52.0); Hemoglobin 7.7 g/dL (14.0-18.0); Immature Granulocyte Absolute 0.13 K/mm3 (0.00-0.031); Immature Granulocyte Percent A 1.5 % (0-0.5); Lymphocytes Absolute Auto 1.86 K/mm3 (0.9-3.2); Mean Corpuscular Hemoglobin 29.1 pg (26-34); Mean Corpuscular Volume 90.9 fl (80-100); Mean Platelet Volume 10.1 fl (7.4-10.4); Monocytes Absolute Auto 0.8 K/mm3 (0.1-0.6); Neutrophils Absolute Auto 5.4 K/mm3 (1.3-6.7); Neutrophils Percent Auto 63.8 % (45.5-73.1); Nucleated Red Blood Cells Perc 0.2 % (0.0-0.2); Platelet Count Result 282 k/mm3 (150-375); Red Blood Count 2.65 M/mm3 (4.6-6.20); Red Cell Distribution Width 14.9 % (11.5-14.5); White Blood Count 8.4 K/mm3 (4.5-10.0)
[2024-10-16 06:28] LABS: Alanine Aminotransferase 23 U/L (6-50); Albumin Level 2.8 g/dL (3.5-5.1); Alkaline Phosphatase 68 U/L (38-126); Anion Gap 11 mmol/L (4-12); Aspartate Amino Transferase 19 U/L (17-59); Bilirubin,Total 0.7 mg/dL (0.2-1.3); Blood Urea Nitrogen 33 mg/dL (9-20); Carbon Dioxide 20 mmol/L (22-30); Chloride 100 mmol/L (98-107); Estimated CRCL calculation 72 ml/min; Estimated Glomerular Filt Rate 60; Glucose 253 mg/dL (65-110); Magnesium 2.1 mg/dL (1.6-2.3); Potassium 3.4 mmol/L (3.4-5.0); Sodium 131 mmol/L (137-145)
[2024-10-16 08:14] LABS: Glucose Point of Care 218 mg/dl (65-105)
[2024-10-16] MEDS: carvediloL 6.25 MG TABLET PO ×2 (09:16→21:04)
[2024-10-16] MEDS: OSELTAMIVIR PHOSPHATE 75 MG CAPSULE PO ×2 (09:16→20:57)
[2024-10-16] MEDS: PRAVASTATIN SODIUM 20 MG TABLET 40 MG PO (09:16)
[2024-10-16] MEDS: GABAPENTIN 300 MG CAPSULE 600 MG PO ×2 (09:16→20:57)
[2024-10-16] MEDS: lisinopriL 20 MG TABLET PO (09:16)
[2024-10-16] MEDS: ENOXAPARIN 40 MG/0.4 ML SYRINGE SUB-Q (09:17)
[2024-10-16] MEDS: [UNRECOGNIZED DRUG - OTHER] PO (09:17)
[2024-10-16] MEDS: EMTRICITABINE PO (09:17)
[2024-10-16] MEDS: hydroCHLOROthiazide 25 MG TABLET PO (09:17)
[2024-10-16] MEDS: INSULIN ASPART (*BKC) 100 UNITS/ML SUB-Q ×4 (09:18→21:03)
--- NOTE | 2024-10-16 11:21 | PM.IMPN ---
Progress Note: A&P Assessment and Plan (1) Influenza A: Code(s): J10.1 - Influenza due to other identified influenza virus with other respiratory manifestations Status: Acute Assessment and Plan: Tamiflu Robitussin DuoNeb (2) Respiratory syncytial virus (RSV) infection: Code(s): B33.8 - Other specified viral diseases Status: Acute Assessment and Plan: Supportive care Guaifenesin Isolation (3) HIV (human immunodeficiency virus infection): Code(s): B20 - Human immunodeficiency virus [HIV] disease Status: Acute Assessment and Plan: Continue biktarvy (4) Weakness: Code(s): R53.1 - Weakness Status: Acute Assessment and Plan: PT OT evaluate and treat Hydration received some fluid in the ER (5) Hypertension: Code(s): I10 - Essential (primary) hypertension Status: Acute Assessment and Plan: Continue home medications (6) BPH (benign prostatic hyperplasia): Code(s): N40.0 - Benign prostatic hyperplasia without lower urinary tract symptoms Status: Acute Assessment and Plan: Continue medications (7) Anemia: Code(s): D64.9 - Anemia, unspecified Status: Acute Assessment and Plan: Patient hemoglobin dropped to 7.7. No obvious blood loss. Start iron supplement and monitor closely. Plan Anemia could be hemodilution no does have baseline anemia 10.6 on arrival. Check FOBT. Iron profile. No prior levels available. Lactic acidosis this has resolved. Subjective Date/time seen: 10/16/24 11:21 Interval history: Patient was seen during the morning rounds today. Patient is feeling slightly better. Decreased shortness of breath. No chest pain. No overnight events. Cough present. Weakness present. Not on oxygen. Denies any new complaints. Review of Systems Review of Systems: 12 systems were reviewed and are negative except for as per HPI. All systems reviewed & are unremarkable except as noted in HPI and below Exam Narrative: General: No acute distress alert and oriented x3 HEENT: normocephalic, atraumatic. Mucous membranes moist. EOMI, PERRLA, bilateral sclera anicteric, no conjunctival injection. Neck supple without JVD, lymphadenopathy, or bruit. Respiratory: Dry cough, diminished Cardiovascular: Regular rate and rhythm, normal S1-S2 upon ascultation. Abdomen: Obese Soft, distended and nontender. Extremities: No cyanosis, clubbing, or edema present. Pulses are palpable 2/2. Active ROM to all four extremities. Neuro: Alert and orientated x 4. PERRLA. Cranial nerves 2-12 intact without focal deficit. Skin: Warm, dry, and intact, without rash, erythema, or lesion. Psych: pleasant, cooperative, normal speech, normal affect, no hallucinations, no dysarthia Objective Data Vital Signs Vital Signs: Vital Signs - 24 hr 10/15/24 11:50 10/15/24 16:00 10/15/24 20:00 Temperature 36.2 C L 36.5 C 36.7 C Pulse Rate 80 82 81 Respiratory Rate 20 20 16 Blood Pressure 114/67 104/70 100/60 Pulse Oximetry 97 98 98 Oxygen Delivery 10/15/24 20:00 10/15/24 20:44 10/15/24 23:54 Temperature 36.2 C L Pulse Rate 81 78 Respiratory Rate 12 Blood Pressure 106/55 L Pulse Oximetry 96 Oxygen Delivery Room Air 10/16/24 04:00 10/16/24 08:00 10/16/24 09:16 Temperature 36.2 C L 36.1 C L Pulse Rate 68 71 76 Respiratory Rate 14 18 Blood Pressure 100/57 L 105/67 Pulse Oximetry 95 96 Oxygen Delivery Intake/Output Intake/Output: Intake & Output 10/13/24 10/14/24 10/15/24 10/16/24 23:59 23:59 23:59 23:59 Intake Total 2240 4492 1240 Output Total 2125 Balance 2240 2367 1240 Meds/Results Medications: Active Medications Generic Name Dose Route Start Last Admin Trade Name Freq PRN Reason Stop Dose Admin Acetaminophen 650 mg 10/14/24 19:30 10/15/24 20:44 Acetaminophen 325 Mg Tablet PO 650 mg Q4H PRN Administration Mild Pain (1-3) or Fever Carvedilol 6.25 mg 10/14/24 23:05 10/16/24 09:16 Carvedilol 6.25 Mg Tablet PO 6.25 mg Q12HR [facility] Administration Dextrose 12.5 gm 10/14/24 19:30 Dextrose 50% 25 Gm/50 Ml Syringe IV PUSH PRN PRN Hypoglycemia Protocol Enoxaparin Sodium 40 mg 10/15/24 09:00 10/16/24 09:17 Enoxaparin 40 Mg/0.4 Ml Syringe SUB-Q 40 mg DAILY [facility] Administration Fluoxetine HCl 20 mg 10/14/24 23:05 10/15/24 16:48 Fluoxetine Hcl 20 Mg Capsule PO 20 mg QPM [facility] Administration Gabapentin 600 mg 10/14/24 22:55 10/16/24 09:16 Gabapentin 300 Mg Capsule PO 600 mg Q12HR [facility] Administration Glucagon 1 mg 10/14/24 19:30 Glucagon For Inj 1 Mg Vial IM PRN PRN Hypoglycemia Protocol Glucose 15 gm 10/14/24 19:30 Glucose Oral Gel 15 Gm Of Glucse In 37.5 Gm Tube PO PRN PRN Hypoglycemia Protocol Guaifenesin/Dextromethorphan 10 ml 10/14/24 19:30 10/16/24 07:22 Guaifenesin/Dextromethorphan 10 Ml Udc PO 10 ml Q4H [facility] Administration Hydrochlorothiazide 25 mg 10/15/24 09:00 10/16/24 09:17 Hydrochlorothiazide 25 Mg Tablet PO 25 mg DAILY [facility] Administration Dextrose 1,000 mls @ 100 mls/hr 10/14/24 19:30 Dextrose 5% 1,000 Ml IVPB PRN PRN Hypoglycemia Protocol Insulin Aspart 2 - 5 units 10/15/24 08:00 10/16/24 09:18 Insulin Aspart (*Bkc) 100 Units/Ml SUB-Q 2 units TIDWM [facility] Administration Protocol Insulin Aspart 1 - 2 units 10/14/24 21:00 10/15/24 20:48 Insulin Aspart (*Bkc) 100 Units/Ml SUB-Q 1 units HS [facility] Administration Protocol Insulin Glargine 24 units 10/15/24 21:00 10/15/24 20:49 Insulin Glargine (*Bkc) 100 Units/Ml 0.2 units/kg (24 units) 24 units SUB-Q Administration [facility] Lisinopril 20 mg 10/15/24 09:00 10/16/24 09:16 Lisinopril 20 Mg Tablet PO 20 mg DAILY [facility] Administration Non-Formulary ( 1 each 10/15/24 09:00 10/16/24 09:17 Bictegravir Sodium/ PO 11/14/24 08:59 1 each Emtricitabine/ DAILY [facility] Administration Tenofovir Alafenamide Fumar 50 Mg-...) Oseltamivir Phosphate 75 mg 10/14/24 21:00 10/16/24 09:16 Oseltamivir Phosphate 75 Mg Capsule PO 10/19/24 20:59 75 mg Q12HR [place] Administration Pantoprazole Sodium 40 mg 10/17/24 09:00 Pantoprazole 40 Mg Tablet PO QAM [facility] Polysaccharide Iron Complex 150 mg 10/16/24 17:00 Polysaccharide Iron Complex 150 Mg Capsule PO BIDWM [facility] Pravastatin Sodium 40 mg 10/15/24 09:00 10/16/24 09:16 Pravastatin Sodium 20 Mg Tablet PO 40 mg DAILY [place] Administration Tamsulosin HCl 0.4 mg 10/14/24 23:05 10/15/24 20:44 Tamsulosin Hcl 0.4 Mg Capsule PO 0.4 mg HS [facility] Administration Radiology Results: ITS Impressions Head CT 10/14/24 11:41 IMPRESSION: 1. Normal brain. Chest X-Ray 10/14/24 11:43 IMPRESSION: 1. No acute cardiopulmonary disease. Labs Labs: Laboratory Results - last 24 hr 10/15/24 10/15/24 10/15/24 11:34 16:46 20:07 WBC RBC Hgb Hct MCV MCH MCHC RDW Plt Count MPV Immature Gran % (Auto) Neut % (Auto) Lymph % (Auto) [place] % (Auto) Eos % (Auto) Baso % (Auto) Lymph # (Auto) [place] # (Auto) Eos # (Auto) Baso # (Auto) Abs Immat Gran (auto) Absolute Neuts (auto) Absolute Nucleated RBC Nucleated RBC % Sodium Potassium Chloride Carbon Dioxide Anion Gap BUN Creatinine Estim Creat Clear Calc Estimated GFR Glucose POC Capillary Glucose 255 H 256 H 248 H Calcium Magnesium Total Bilirubin AST ALT Alkaline Phosphatase Total Protein Albumin Stl Occult Blood (IFOB) 10/15/24 10/16/24 10/16/24 20:47 05:54 07:58 WBC 8.4 RBC 2.65 L Hgb 7.7 L Hct 24.1 L MCV 90.9 MCH 29.1 MCHC 32.0 RDW 14.9 H Plt Count 282 MPV 10.1 Immature Gran % (Auto) 1.5 H Neut % (Auto) 63.8 Lymph % (Auto) 22.0 [place] % (Auto) 10.0 H Eos % (Auto) 2.5 Baso % (Auto) 0.2 Lymph # (Auto) 1.86 [place] # (Auto) 0.8 H Eos # (Auto) 0.2 Baso # (Auto) 0.0 Abs Immat Gran (auto) 0.13 H Absolute Neuts (auto) 5.4 Absolute Nucleated RBC 0.020 H Nucleated RBC % 0.2 Sodium 131 L Potassium 3.4 Chloride 100 Carbon Dioxide 20 L Anion Gap 11 BUN 33 H Creatinine 1.22 Estim Creat Clear Calc 72 Estimated GFR 60 Glucose 253 H POC Capillary Glucose 218 H Calcium 8.0 L Magnesium 2.1 Total Bilirubin 0.7 AST 19 ALT 23 Alkaline Phosphatase 68 Total Protein 6.0 L Albumin 2.8 L Stl Occult Blood (IFOB) Negative Quality VTE Prophylaxis VTE prophylaxis: mechanical ordered and pharmacologic ordered
[2024-10-16 11:48] LABS: Glucose Point of Care 313 mg/dl (65-105)
[2024-10-16] MEDS: PANTOPRAZOLE 40 MG TABLET PO (12:54)
[2024-10-16 16:56] LABS: Glucose Point of Care 320 mg/dl (65-105)
[2024-10-16] MEDS: POLYSACCHARIDE IRON COMPLEX 150 MG CAPSULE PO (17:28)
[2024-10-16] MEDS: FLUoxetine HCL 20 MG CAPSULE PO (17:28)
[2024-10-16] MEDS: TAMSULOSIN HCL 0.4 MG CAPSULE PO (20:57)
[2024-10-16] MEDS: INSULIN GLARGINE (*BKC) 100 UNITS/ML 24 UNITS SUB-Q (21:04)
[2024-10-16 21:28] LABS: Glucose Point of Care 338 mg/dl (65-105)
[2024-10-17] VITALS (8 sets, daily range): BP systolic 89–118; BP diastolic 46–65; PULSE 65–88; RESP 16–18; TEMP 36.1–36.9; O2SAT 96–99
[2024-10-17] MEDS: guaiFENesin/DEXTROMETHORPHAN 10 ML UDC PO ×2 (06:39→12:35)
[2024-10-17 07:36] LABS: Hematocrit 22.8 % (42.0-52.0); Hemoglobin 7.3 g/dL (14.0-18.0); Mean Corpuscular Volume 90.5 fl (80-100); Mean Platelet Volume 10.1 fl (7.4-10.4); Platelet Count Result 291 k/mm3 (150-375); Red Blood Count 2.52 M/mm3 (4.6-6.20); Red Cell Distribution Width 14.7 % (11.5-14.5); White Blood Count 7.9 K/mm3 (4.5-10.0)
[2024-10-17 08:17] LABS: Glucose Point of Care 361 mg/dl (65-105)
[2024-10-17] MEDS: POLYSACCHARIDE IRON COMPLEX 150 MG CAPSULE PO ×2 (09:09→17:39)
[2024-10-17] MEDS: hydroCHLOROthiazide 25 MG TABLET PO (09:10)
[2024-10-17] MEDS: EMTRICITABINE PO (09:10)
[2024-10-17] MEDS: lisinopriL 20 MG TABLET PO (09:10)
[2024-10-17] MEDS: PANTOPRAZOLE 40 MG TABLET PO (09:10)
[2024-10-17] MEDS: carvediloL 6.25 MG TABLET PO ×2 (09:10→20:12)
[2024-10-17] MEDS: GABAPENTIN 300 MG CAPSULE 600 MG PO ×2 (09:10→20:12)
[2024-10-17] MEDS: [UNRECOGNIZED DRUG - OTHER] PO (09:10)
[2024-10-17] MEDS: INSULIN ASPART (*BKC) 100 UNITS/ML SUB-Q ×4 (09:11→20:34)
[2024-10-17] MEDS: PRAVASTATIN SODIUM 20 MG TABLET 40 MG PO (09:11)
[2024-10-17] MEDS: ENOXAPARIN 40 MG/0.4 ML SYRINGE SUB-Q (09:11)
[2024-10-17] MEDS: OSELTAMIVIR PHOSPHATE 75 MG CAPSULE PO ×2 (09:11→20:12)
--- NOTE | 2024-10-17 11:47 | PM.IMPN ---
Progress Note: A&P Assessment and Plan (1) Influenza A: Code(s): J10.1 - Influenza due to other identified influenza virus with other respiratory manifestations Status: Acute Assessment and Plan: Tamiflu Robitussin DuoNeb (2) Respiratory syncytial virus (RSV) infection: Code(s): B33.8 - Other specified viral diseases Status: Acute Assessment and Plan: Supportive care Guaifenesin Isolation (3) HIV (human immunodeficiency virus infection): Code(s): B20 - Human immunodeficiency virus [HIV] disease Status: Acute Assessment and Plan: Continue biktarvy (4) Weakness: Code(s): R53.1 - Weakness Status: Acute Assessment and Plan: PT OT evaluate and treat Hydration received some fluid in the ER (5) Hypertension: Code(s): I10 - Essential (primary) hypertension Status: Acute Assessment and Plan: Continue home medications (6) BPH (benign prostatic hyperplasia): Code(s): N40.0 - Benign prostatic hyperplasia without lower urinary tract symptoms Status: Acute Assessment and Plan: Continue medications (7) Anemia: Code(s): D64.9 - Anemia, unspecified Status: Acute Assessment and Plan: Patient hemoglobin dropped to 7.3. No obvious blood loss. Start iron supplement and monitor closely. If drops further, will transfuse Plan Anemia could be hemodilution no does have baseline anemia 10.6 on arrival. Check FOBT. Iron profile. No prior levels available. Lactic acidosis has resolved. Subjective Date/time seen: 10/17/24 11:47 Interval history: Patient was seen during the morning rounds today. Patient is feeling slightly better. Decreased shortness of breath. No chest pain. No overnight events. Cough present. Weakness present. Not on oxygen. Denies any new complaints. Review of Systems Review of Systems: 12 systems were reviewed and are negative except for as per HPI. All systems reviewed & are unremarkable except as noted in HPI and below Exam Narrative: General: No acute distress alert and oriented x3 HEENT: normocephalic, atraumatic. Mucous membranes moist. EOMI, PERRLA, bilateral sclera anicteric, no conjunctival injection. Neck supple without JVD, lymphadenopathy, or bruit. Respiratory: Dry cough, diminished Cardiovascular: Regular rate and rhythm, normal S1-S2 upon ascultation. Abdomen: Obese Soft, distended and nontender. Extremities: No cyanosis, clubbing, or edema present. Pulses are palpable 2/2. Active ROM to all four extremities. Neuro: Alert and orientated x 4. PERRLA. Cranial nerves 2-12 intact without focal deficit. Skin: Warm, dry, and intact, without rash, erythema, or lesion. Psych: pleasant, cooperative, normal speech, normal affect, no hallucinations, no dysarthia Objective Data Vital Signs Vital Signs: Vital Signs - 24 hr 10/16/24 12:00 10/16/24 16:00 10/16/24 20:00 Temperature 35.9 C L 36.1 C L 36.8 C Pulse Rate 86 86 81 Respiratory Rate 20 20 18 Blood Pressure 86/49 L 111/94 H 106/58 L Pulse Oximetry 99 97 97 Oxygen Delivery 10/16/24 20:00 10/16/24 21:04 10/17/24 00:00 Temperature 36.7 C Pulse Rate 78 73 Respiratory Rate 18 Blood Pressure 117/53 L Pulse Oximetry 99 Oxygen Delivery Room Air 10/17/24 04:00 10/17/24 08:30 10/17/24 09:10 Temperature 36.6 C Pulse Rate 80 84 Respiratory Rate 18 Blood Pressure 118/58 L Pulse Oximetry 99 Oxygen Delivery Room Air Intake/Output Intake/Output: Intake & Output 10/14/24 10/15/24 10/16/24 10/17/24 23:59 23:59 23:59 23:59 Intake Total 2240 4492 1730 200 Output Total 2125 0 Balance 2240 2367 1730 200 Meds/Results Medications: Active Medications Generic Name Dose Route Start Last Admin Trade Name Freq PRN Reason Stop Dose Admin Acetaminophen 650 mg 10/14/24 19:30 10/15/24 20:44 Acetaminophen 325 Mg Tablet PO 650 mg Q4H PRN Administration Mild Pain (1-3) or Fever Carvedilol 6.25 mg 10/14/24 23:05 10/17/24 09:10 Carvedilol 6.25 Mg Tablet PO 6.25 mg Q12HR [facility] Administration Dextrose 12.5 gm 10/14/24 19:30 Dextrose 50% 25 Gm/50 Ml Syringe IV PUSH PRN PRN Hypoglycemia Protocol Fluoxetine HCl 20 mg 10/14/24 23:05 10/16/24 17:28 Fluoxetine Hcl 20 Mg Capsule PO 20 mg QPM [facility] Administration Gabapentin 600 mg 10/14/24 22:55 10/17/24 09:10 Gabapentin 300 Mg Capsule PO 600 mg Q12HR [facility] Administration Glucagon 1 mg 10/14/24 19:30 Glucagon For Inj 1 Mg Vial IM PRN PRN Hypoglycemia Protocol Glucose 15 gm 10/14/24 19:30 Glucose Oral Gel 15 Gm Of Glucse In 37.5 Gm Tube PO PRN PRN Hypoglycemia Protocol Guaifenesin/Dextromethorphan 10 ml 10/14/24 19:30 10/17/24 06:39 Guaifenesin/Dextromethorphan 10 Ml Udc PO 10 ml Q4H [facility] Administration Hydrochlorothiazide 25 mg 10/15/24 09:00 10/17/24 09:10 Hydrochlorothiazide 25 Mg Tablet PO 25 mg DAILY [facility] Administration Dextrose 1,000 mls @ 100 mls/hr 10/14/24 19:30 Dextrose 5% 1,000 Ml IVPB PRN PRN Hypoglycemia Protocol Insulin Aspart 2 - 5 units 10/15/24 08:00 10/17/24 09:11 Insulin Aspart (*Bkc) 100 Units/Ml SUB-Q 5 units TIDWM [facility] Administration Protocol Insulin Aspart 1 - 2 units 10/14/24 21:00 10/16/24 21:03 Insulin Aspart (*Bkc) 100 Units/Ml SUB-Q 2 units HS [facility] Administration Protocol Insulin Glargine 24 units 10/15/24 21:00 10/16/24 21:04 Insulin Glargine (*Bkc) 100 Units/Ml 0.2 units/kg (24 units) 24 units SUB-Q Administration [facility] Lisinopril 20 mg 10/15/24 09:00 10/17/24 09:10 Lisinopril 20 Mg Tablet PO 20 mg DAILY [facility] Administration Non-Formulary ( 1 each 10/15/24 09:00 10/17/24 09:10 Bictegravir Sodium/ PO 11/14/24 08:59 1 each Emtricitabine/ DAILY [facility] Administration Tenofovir Alafenamide Fumar 50 Mg-...) Oseltamivir Phosphate 75 mg 10/14/24 21:00 10/17/24 09:11 Oseltamivir Phosphate 75 Mg Capsule PO 10/19/24 20:59 75 mg Q12HR [facility] Administration Pantoprazole Sodium 40 mg 10/16/24 11:25 10/17/24 09:10 Pantoprazole 40 Mg Tablet PO 40 mg QAM [facility] Administration Polysaccharide Iron Complex 150 mg 10/16/24 17:00 10/17/24 09:09 Polysaccharide Iron Complex 150 Mg Capsule PO 150 mg BIDWM [facility] Administration Pravastatin Sodium 40 mg 10/15/24 09:00 10/17/24 09:11 Pravastatin Sodium 20 Mg Tablet PO 40 mg DAILY [facility] Administration Tamsulosin HCl 0.4 mg 10/14/24 23:05 10/16/24 20:57 Tamsulosin Hcl 0.4 Mg Capsule PO 0.4 mg HS [facility] Administration Radiology Results: ITS Impressions Head CT 10/14/24 11:41 IMPRESSION: 1. Normal brain. Chest X-Ray 10/14/24 11:43 IMPRESSION: 1. No acute cardiopulmonary disease. Labs Labs: Laboratory Results - last 24 hr 10/16/24 10/16/24 10/16/24 11:30 16:46 20:20 WBC RBC Hgb Hct MCV MCH MCHC RDW Plt Count MPV POC Capillary Glucose 313 H 320 H 338 H 10/17/24 10/17/24 07:13 08:13 WBC 7.9 RBC 2.52 L Hgb 7.3 L Hct 22.8 L MCV 90.5 MCH 29.0 MCHC 32.0 RDW 14.7 H Plt Count 291 MPV 10.1 POC Capillary Glucose 361 H Quality VTE Prophylaxis VTE prophylaxis: mechanical ordered
[2024-10-17 12:15] LABS: Glucose Point of Care 305 mg/dl (65-105)
[2024-10-17 17:13] LABS: Glucose Point of Care 319 mg/dl (65-105)
[2024-10-17] MEDS: glipiZIDE 5 MG TABLET 10 MG PO (17:39)
[2024-10-17] MEDS: FLUoxetine HCL 20 MG CAPSULE PO (17:39)
[2024-10-17] MEDS: TAMSULOSIN HCL 0.4 MG CAPSULE PO (20:12)
[2024-10-17] MEDS: INSULIN GLARGINE (*BKC) 100 UNITS/ML 24 UNITS SUB-Q (20:15)
[2024-10-17 21:51] LABS: Glucose Point of Care 269 mg/dl (65-105)
[2024-10-18] VITALS (7 sets, daily range): BP systolic 93–114; BP diastolic 54–62; PULSE 74–90; RESP 16–20; TEMP 36.1–37.9; O2SAT 93–100
[2024-10-18 06:22] LABS: Hematocrit 24.2 % (42.0-52.0); Hemoglobin 7.7 g/dL (14.0-18.0); Mean Corpuscular HGB Conc 31.8 g/dl (32-36); Mean Corpuscular Hemoglobin 29.1 pg (26-34); Mean Corpuscular Volume 91.3 fl (80-100); Mean Platelet Volume 9.9 fl (7.4-10.4); Platelet Count Result 299 k/mm3 (150-375); Red Blood Count 2.65 M/mm3 (4.6-6.20); Red Cell Distribution Width 14.9 % (11.5-14.5); White Blood Count 8.2 K/mm3 (4.5-10.0)
[2024-10-18 08:24] LABS: Glucose Point of Care 218 mg/dl (65-105)
--- NOTE | 2024-10-18 09:27 | P.PNIM_ITS ---
Progress Note: A&P Assessment and Plan (1) Influenza A: Code(s): J10.1 - Influenza due to other identified influenza virus with other respiratory manifestations Status: Acute Assessment and Plan: Patient is feeling much better now. Will continue with Tamiflu (2) Respiratory syncytial virus (RSV) infection: Code(s): B33.8 - Other specified viral diseases Status: Acute Assessment and Plan: Supportive care Guaifenesin Isolation (3) HIV (human immunodeficiency virus infection): Code(s): B20 - Human immunodeficiency virus [HIV] disease Status: Acute Assessment and Plan: Continue biktarvy (4) Weakness: Code(s): R53.1 - Weakness Status: Acute Assessment and Plan: PT OT evaluate and treat Hydration received some fluid in the ER (5) Hypertension: Code(s): I10 - Essential (primary) hypertension Status: Acute Assessment and Plan: Continue home medications (6) BPH (benign prostatic hyperplasia): Code(s): N40.0 - Benign prostatic hyperplasia without lower urinary tract symptoms Status: Acute Assessment and Plan: Continue medications (7) Anemia: Code(s): D64.9 - Anemia, unspecified Status: Acute Assessment and Plan: Patient hemoglobin dropped to 7.7. No obvious blood loss. Start iron supplement and monitor closely. If drops further, will transfuse Plan Anemia could be hemodilution no does have baseline anemia 10.6 on arrival. Check FOBT. Iron profile. No prior levels available. Lactic acidosis has resolved. Subjective Date/time seen: 10/18/24 09:27 Interval history: Patient was seen during the morning rounds today. Patient was admitted for influenza. No new overnight complaints. Patient is feeling slightly better. Decreased shortness of breath. No chest pain. No overnight events. Cough present. Weakness present. Not on oxygen. Review of Systems Review of Systems: 12 systems were reviewed and are negativ e except for as per HPI. All systems reviewed & are unremarkable except as noted in HPI and below Exam Narrative: General: No acute distress alert and oriented x3 HEENT: normocephalic, atraumatic. Mucous membranes moist. EOMI, PERRLA, bilateral sclera anicteric, no conjunctival injection. Neck supple without JVD, lymphadenopathy, or bruit. Respiratory: Dry cough, diminished Cardiovascular: Regular rate and rhythm, normal S1-S2 upon ascultation. Abdomen: Obese Soft, distended and nontender. Extremities: No cyanosis, clubbing, or edema present. Pulses are palpable 2/2. Active ROM to all four extremities. Neuro: Alert and orientated x 4. PERRLA. Cranial nerves 2-12 intact without focal deficit. Skin: Warm, dry, and intact, without rash, erythema, or lesion. Psych: pleasant, cooperative, normal speech, normal affect, no hallucinations, no dysarthia Objective Data Vital Signs Vital Signs: Vital Signs - 24 hr 10/17/24 12:00 10/17/24 16:00 10/17/24 20:00 Temperature 36.5 C 36.1 C L 36.3 C L Pulse Rate 65 76 84 Respiratory Rate 16 16 18 Blood Pressure 111/54 L 89/65 L 101/59 L Pulse Oximetry 97 98 96 Oxygen Delivery 10/17/24 20:00 10/17/24 20:12 10/18/24 00:00 Temperature 36.3 C L Pulse Rate 88 90 Respiratory Rate 18 Blood Pressure 106/58 L Pulse Oximetry 97 Oxygen Delivery Room Air 10/18/24 04:00 10/18/24 08:00 Temperature 36.1 C L Pulse Rate 74 74 Respiratory Rate 18 18 Blood Pressure 103/54 L Pulse Oximetry 98 98 Oxygen Delivery Room Air Intake/Output Intake/Output: Intake & Output 10/15/24 10/16/24 10/17/24 10/18/24 23:59 23:59 23:59 23:59 Intake Total 4492 1730 916 300 Output Total 2125 0 500 250 Balance 2367 1730 416 50 Meds/Results Medications: Active Medications Generic Name Dose Route Start Last Admin Trade Name Freq PRN Reason Stop Dose Admin Acetaminophen 650 mg 10/14/24 19:30 10/15/24 20:44 Acetaminophen 325 Mg Tablet PO 650 mg Q4H PRN Administration Mild Pain (1-3) or Fever Carvedilol 6.25 mg 10/14/24 23:05 10/17/24 20:12 Carvedilol 6.25 Mg Tablet PO 6.25 mg Q12HR [facility] Administration Dextrose 12.5 gm 10/14/24 19:30 Dextrose 50% 25 Gm/50 Ml Syringe IV PUSH PRN PRN Hypoglycemia Protocol Fluoxetine HCl 20 mg 10/14/24 23:05 10/17/24 17:39 Fluoxetine Hcl 20 Mg Capsule PO 20 mg QPM [facility] Administration Gabapentin 600 mg 10/14/24 22:55 10/17/24 20:12 Gabapentin 300 Mg Capsule PO 600 mg Q12HR [facility] Administration Glipizide 10 mg 10/17/24 17:00 10/17/24 17:39 Glipizide 5 Mg Tablet PO 10 mg BID [facility] Administration Glucagon 1 mg 10/14/24 19:30 Glucagon For Inj 1 Mg Vial IM PRN PRN Hypoglycemia Protocol Glucose 15 gm 10/14/24 19:30 Glucose Oral Gel 15 Gm Of Glucse In 37.5 Gm Tube PO PRN PRN Hypoglycemia Protocol Guaifenesin/Dextromethorphan 10 ml 10/17/24 17:49 Guaifenesin/Dextromethorphan 10 Ml Udc PO Q4H PRN Cough Hydrochlorothiazide 25 mg 10/15/24 09:00 10/17/24 09:10 Hydrochlorothiazide 25 Mg Tablet PO 25 mg DAILY [facility] Administration Dextrose 1,000 mls @ 100 mls/hr 10/14/24 19:30 Dextrose 5% 1,000 Ml IVPB PRN PRN Hypoglycemia Protocol Insulin Aspart 2 - 5 units 10/15/24 08:00 10/17/24 17:39 Insulin Aspart (*Bkc) 100 Units/Ml SUB-Q 4 units TIDWM [facility] Administration Protocol Insulin Aspart 1 - 2 units 10/14/24 21:00 10/17/24 20:34 Insulin Aspart (*Bkc) 100 Units/Ml SUB-Q 1 units HS [facility] Administration Protocol Insulin Glargine 24 units 10/15/24 21:00 10/17/24 20:15 Insulin Glargine (*Bkc) 100 Units/Ml 0.2 units/kg (24 units) 24 units SUB-Q Administration [facility] Lisinopril 20 mg 10/15/24 09:00 10/17/24 09:10 Lisinopril 20 Mg Tablet PO 20 mg DAILY [facility] Administration Non-Formulary ( 1 each 10/15/24 09:00 10/17/24 09:10 Bictegravir Sodium/ PO 11/14/24 08:59 1 each Emtricitabine/ DAILY [facility] Administration Tenofovir Alafenamide Fumar 50 Mg-...) Oseltamivir Phosphate 75 mg 10/14/24 21:00 10/17/24 20:12 Oseltamivir Phosphate 75 Mg Capsule PO 10/19/24 20:59 75 mg Q12HR [facility] Administration Pantoprazole Sodium 40 mg 10/16/24 11:25 10/17/24 09:10 Pantoprazole 40 Mg Tablet PO 40 mg QAM [facility] Administration Polysaccharide Iron Complex 150 mg 10/16/24 17:00 10/17/24 17:39 Polysaccharide Iron Complex 150 Mg Capsule PO 150 mg BIDWM [facility] Administration Pravastatin Sodium 40 mg 10/15/24 09:00 10/17/24 09:11 Pravastatin Sodium 20 Mg Tablet PO 40 mg DAILY [facility] Administration Tamsulosin HCl 0.4 mg 10/14/24 23:05 10/17/24 20:12 Tamsulosin Hcl 0.4 Mg Capsule PO 0.4 mg HS [facility] Administration Radiology Results: ITS Impressions Head CT 10/14/24 11:41 IMPRESSION: 1. Normal brain. Chest X-Ray 10/14/24 11:43 IMPRESSION: 1. No acute cardiopulmonary disease. Labs Labs: Laboratory Results - last 24 hr 10/17/24 10/17/24 10/17/24 12:00 17:08 20:17 WBC RBC Hgb Hct MCV MCH MCHC RDW Plt Count MPV POC Capillary Glucose 305 H 319 H 269 H 10/18/24 10/18/24 06:16 08:20 WBC 8.2 RBC 2.65 L Hgb 7.7 L Hct 24.2 L MCV 91.3 MCH 29.1 MCHC 31.8 L RDW 14.9 H Plt Count 299 MPV 9.9 POC Capillary Glucose 218 H Quality VTE Prophylaxis VTE prophylaxis: mechanical ordered
[2024-10-18] MEDS: GABAPENTIN 300 MG CAPSULE 600 MG PO ×2 (10:32→22:33)
[2024-10-18] MEDS: PANTOPRAZOLE 40 MG TABLET PO (10:32)
[2024-10-18] MEDS: PRAVASTATIN SODIUM 20 MG TABLET 40 MG PO (10:32)
[2024-10-18] MEDS: OSELTAMIVIR PHOSPHATE 75 MG CAPSULE PO ×2 (10:33→22:33)
[2024-10-18] MEDS: hydroCHLOROthiazide 25 MG TABLET PO (10:33)
[2024-10-18] MEDS: lisinopriL 20 MG TABLET PO (10:33)
[2024-10-18] MEDS: carvediloL 6.25 MG TABLET PO ×2 (10:33→22:33)
[2024-10-18] MEDS: glipiZIDE 5 MG TABLET 10 MG PO ×2 (10:33→16:50)
[2024-10-18] MEDS: POLYSACCHARIDE IRON COMPLEX 150 MG CAPSULE PO ×2 (10:33→16:50)
[2024-10-18] MEDS: EMTRICITABINE PO (10:34)
[2024-10-18] MEDS: [UNRECOGNIZED DRUG - OTHER] PO (10:34)
[2024-10-18] MEDS: INSULIN ASPART (*BKC) 100 UNITS/ML SUB-Q ×4 (10:35→22:34)
[2024-10-18] MEDS: guaiFENesin/DEXTROMETHORPHAN 10 ML UDC PO (10:37)
[2024-10-18 12:43] LABS: Glucose Point of Care 290 mg/dl (65-105)
[2024-10-18] MEDS: FLUoxetine HCL 20 MG CAPSULE PO (16:54)
[2024-10-18 17:22] LABS: Glucose Point of Care 313 mg/dl (65-105)
[2024-10-18 21:38] LABS: Glucose Point of Care 304 mg/dl (65-105)
[2024-10-18] MEDS: INSULIN GLARGINE (*BKC) 100 UNITS/ML 24 UNITS SUB-Q (22:33)
[2024-10-18] MEDS: TAMSULOSIN HCL 0.4 MG CAPSULE PO (22:33)
[2024-10-19] VITALS (9 sets, daily range): BP systolic 76–99; BP diastolic 44–66; PULSE 66–81; RESP 16–20; TEMP 36.1–36.9; O2SAT 96–99
[2024-10-19] MEDS: carvediloL 6.25 MG TABLET PO (07:59)
[2024-10-19] MEDS: GABAPENTIN 300 MG CAPSULE 600 MG PO (07:59)
[2024-10-19] MEDS: hydroCHLOROthiazide 25 MG TABLET PO (07:59)
[2024-10-19] MEDS: glipiZIDE 5 MG TABLET 10 MG PO ×2 (08:00→16:49)
[2024-10-19] MEDS: PRAVASTATIN SODIUM 20 MG TABLET 40 MG PO (08:00)
[2024-10-19] MEDS: POLYSACCHARIDE IRON COMPLEX 150 MG CAPSULE PO ×2 (08:00→16:49)
[2024-10-19] MEDS: lisinopriL 20 MG TABLET PO (08:00)
[2024-10-19] MEDS: OSELTAMIVIR PHOSPHATE 75 MG CAPSULE PO (08:00)
[2024-10-19] MEDS: INSULIN ASPART (*BKC) 100 UNITS/ML SUB-Q ×4 (08:04→20:18)
[2024-10-19 08:11] LABS: Glucose Point of Care 270 mg/dl (65-105)
[2024-10-19 08:30] LABS: Hematocrit 24.3 % (42.0-52.0); Hemoglobin 7.7 g/dL (14.0-18.0); Mean Corpuscular HGB Conc 31.7 g/dl (32-36); Mean Corpuscular Hemoglobin 29.1 pg (26-34); Mean Corpuscular Volume 91.7 fl (80-100); Mean Platelet Volume 10.1 fl (7.4-10.4); Platelet Count Result 308 k/mm3 (150-375); Red Blood Count 2.65 M/mm3 (4.6-6.20); Red Cell Distribution Width 14.9 % (11.5-14.5); White Blood Count 10.9 K/mm3 (4.5-10.0)
--- NOTE | 2024-10-19 10:34 | PCPTNOTE ---
Attempted to see pt for PT this morning. Pt refusing PT due to severe R hip pain. Pt states that he is in a lot of pain after walking to the bedside commode and is unable to attempt therapy at this time due to pain. Will continue to follow per PT POC and will notify RN.
[2024-10-19 12:08] LABS: Glucose Point of Care 331 mg/dl (65-105)
[2024-10-19] MEDS: ACETAMINOPHEN 325 MG TABLET 650 MG PO (12:26)
[2024-10-19] MEDS: [UNRECOGNIZED DRUG - OTHER] PO (12:27)
[2024-10-19] MEDS: EMTRICITABINE PO (12:27)
[2024-10-19] MEDS: PANTOPRAZOLE 40 MG TABLET PO (12:27)
--- NOTE | 2024-10-19 15:14 | PCPTNOTE ---
On 10/19/24, the student, RICHARD Lan, provided care and completed [facility] documentation on this patient. I have reviewed the student's documentation and agree with the findings.
--- NOTE | 2024-10-19 16:46 | P.PNIM_ITS ---
Progress Note: A&P Assessment and Plan (1) Influenza A: Code(s): J10.1 - Influenza due to other identified influenza virus with other respiratory manifestations Status: Acute Assessment and Plan: Patient is feeling much better now. Will continue with Tamiflu (2) Respiratory syncytial virus (RSV) infection: Code(s): B33.8 - Other specified viral diseases Status: Acute Assessment and Plan: Supportive care Guaifenesin Isolation (3) HIV (human immunodeficiency virus infection): Code(s): B20 - Human immunodeficiency virus [HIV] disease Status: Acute Assessment and Plan: Continue biktarvy Patient reports his last viral load was undetectable and CD4 was around 475. He was diagnosed with HIV in 1996. He follows with PCP who manages his HIV. Ordered PCP smear, viral load and CD4 count. Added Amox/clav and doxycycline for possible superimposed bacterial infection and increased WBC. (4) Weakness: Code(s): R53.1 - Weakness Status: Acute Assessment and Plan: PT OT evaluate and treat Hydration received some fluid in the ER (5) Hypertension: Code(s): I10 - Essential (primary) hypertension Status: Acute Assessment and Plan: Continue home medications (6) BPH (benign prostatic hyperplasia): Code(s): N40.0 - Benign prostatic hyperplasia without lower urinary tract symptoms Status: Acute Assessment and Plan: Continue medications (7) Anemia: Code(s): D64.9 - Anemia, unspecified Status: Acute Assessment and Plan: Patient hemoglobin dropped to 7.7. No obvious blood loss. Start iron supplement and monitor closely. If drops further, will transfuse (8) Hypotension: Code(s): I95.9 - Hypotension, unspecified Status: Acute Assessment and Plan: Started fluids Ordered STAT Echo Plan Anemia could be hemodilution no does have baseline anemia 10.6 on arrival. Check FOBT. Iron profile. No prior levels available. Lactic acidosis has resolved. Subjective Date/time seen: 10/19/24 16:46 Interval history: Patient reports his last viral load was undetectable and CD4 was around 475. He was diagnosed with HIV in 1996. He follows with PCP who manages his HIV. Ordered PCP smear, viral load and CD4 count.Added Amox/clav and doxycycline for possible superimposed bacterial infection and increased WBC. Late in the evening nurse reported episodes of hypotension. Ordered fluids and ECHO Review of Systems Review of Systems: 12 systems were reviewed and are negativ e except for as per HPI. All systems reviewed & are unremarkable except as noted in HPI and below Exam Narrative: General: No acute distress alert and oriented x3 HEENT: normocephalic, atraumatic. Mucous membranes moist. EOMI, PERRLA, bilateral sclera anicteric, no conjunctival injection. Neck supple without JVD, lymphadenopathy, or bruit. Respiratory: Dry cough, diminished Cardiovascular: Regular rate and rhythm, normal S1-S2 upon ascultation. Abdomen: Obese Soft, distended and nontender. Extremities: No cyanosis, clubbing, or edema present. Pulses are palpable 2/2. Active ROM to all four extremities. Neuro: Alert and orientated x 4. PERRLA. Cranial nerves 2-12 intact without focal deficit. Skin: Warm, dry, and intact, without rash, erythema, or lesion. Psych: pleasant, cooperative, normal speech, normal affect, no hallucinations, no dysarthia Objective Data Vital Signs Vital Signs: Vital Signs - 24 hr 10/18/24 20:00 10/18/24 20:00 10/18/24 22:33 Temperature 100.3 F H Pulse Rate 87 89 Respiratory Rate 20 Blood Pressure 108/58 L Pulse Oximetry 97 Oxygen Delivery Room Air 10/19/24 00:00 10/19/24 04:00 10/19/24 08:00 Temperature 98.5 F 98.5 F Pulse Rate 81 81 66 Respiratory Rate 18 18 16 Blood Pressure 99/54 L 99/54 L Pulse Oximetry 97 99 99 Oxygen Delivery Room Air 10/19/24 14:00 Temperature 97.2 F L Pulse Rate 66 Respiratory Rate 16 Blood Pressure 76/44 L Pulse Oximetry 99 Oxygen Delivery Intake/Output Intake/Output: Intake & Output 10/16/24 10/17/24 10/18/24 10/19/24 23:59 23:59 23:59 23:59 Intake Total 1730 916 660 680 Output Total 0 500 1050 Balance 1730 416 -390 680 Meds/Results Medications: Active Medications Generic Name Dose Route Start Last Admin Trade Name Freq PRN Reason Stop Dose Admin Acetaminophen 650 mg 10/14/24 19:30 10/19/24 12:26 Acetaminophen 325 Mg Tablet PO 650 mg Q4H PRN Administration Mild Pain (1-3) or Fever Amoxicillin/Clavulanate Potassium 1 tablet 10/19/24 14:30 Amoxicillin/Clavulanate K 875-125 Mg Tab PO 10/25/24 21:01 Q12HR [facility] Carvedilol 6.25 mg 10/14/24 23:05 10/19/24 07:59 Carvedilol 6.25 Mg Tablet PO 6.25 mg Q12HR [facility] Administration Dextrose 12.5 gm 10/14/24 19:30 Dextrose 50% 25 Gm/50 Ml Syringe IV PUSH PRN PRN Hypoglycemia Protocol Doxycycline Hyclate 100 mg 10/19/24 14:30 Doxycycline Hyclate 100 Mg Tablet PO 10/23/24 21:01 Q12HR [facility] Fluoxetine HCl 20 mg 10/14/24 23:05 10/18/24 16:54 Fluoxetine Hcl 20 Mg Capsule PO 20 mg QPM [facility] Administration Gabapentin 600 mg 10/14/24 22:55 10/19/24 07:59 Gabapentin 300 Mg Capsule PO 600 mg Q12HR [facility] Administration Glipizide 10 mg 10/17/24 17:00 10/19/24 08:00 Glipizide 5 Mg Tablet PO 10 mg BID [facility] Administration Glucagon 1 mg 10/14/24 19:30 Glucagon For Inj 1 Mg Vial IM PRN PRN Hypoglycemia Protocol Glucose 15 gm 10/14/24 19:30 Glucose Oral Gel 15 Gm Of Glucse In 37.5 Gm Tube PO PRN PRN Hypoglycemia Protocol Guaifenesin/Dextromethorphan 10 ml 10/17/24 17:49 10/18/24 10:37 Guaifenesin/Dextromethorphan 10 Ml Udc PO 10 ml Q4H PRN Administration Cough Hydrochlorothiazide 25 mg 10/15/24 09:00 10/19/24 07:59 Hydrochlorothiazide 25 Mg Tablet PO 25 mg DAILY [facility] Administration Dextrose 1,000 mls @ 100 mls/hr 10/14/24 19:30 Dextrose 5% 1,000 Ml IVPB PRN PRN Hypoglycemia Protocol Insulin Aspart 2 - 5 units 10/15/24 08:00 10/19/24 12:27 Insulin Aspart (*Bkc) 100 Units/Ml SUB-Q 4 units TIDWM [facility] Administration Protocol Insulin Aspart 1 - 2 units 10/14/24 21:00 10/18/24 22:34 Insulin Aspart (*Bkc) 100 Units/Ml SUB-Q 2 units HS [facility] Administration Protocol Insulin Glargine 24 units 10/15/24 21:00 10/18/24 22:33 Insulin Glargine (*Bkc) 100 Units/Ml 0.2 units/kg (24 units) 24 units SUB-Q Administration [facility] Lisinopril 20 mg 10/15/24 09:00 10/19/24 08:00 Lisinopril 20 Mg Tablet PO 20 mg DAILY [facility] Administration Non-Formulary ( 1 each 10/15/24 09:00 10/19/24 12:27 Bictegravir Sodium/ PO 11/14/24 08:59 1 each Emtricitabine/ DAILY [facility] Administration Tenofovir Alafenamide Fumar 50 Mg-...) Oseltamivir Phosphate 75 mg 10/14/24 21:00 10/19/24 08:00 Oseltamivir Phosphate 75 Mg Capsule PO 10/19/24 20:59 75 mg Q12HR [facility] Administration Pantoprazole Sodium 40 mg 10/16/24 11:25 10/19/24 12:27 Pantoprazole 40 Mg Tablet PO 40 mg QAM [facility] Administration Polysaccharide Iron Complex 150 mg 10/16/24 17:00 10/19/24 08:00 Polysaccharide Iron Complex 150 Mg Capsule PO 150 mg BIDWM [facility] Administration Pravastatin Sodium 40 mg 10/15/24 09:00 10/19/24 08:00 Pravastatin Sodium 20 Mg Tablet PO 40 mg DAILY [facility] Administration Tamsulosin HCl 0.4 mg 10/14/24 23:05 10/18/24 22:33 Tamsulosin Hcl 0.4 Mg Capsule PO 0.4 mg HS [facility] Administration Radiology Results: ITS Impressions Head CT 10/14/24 11:41 IMPRESSION: 1. Normal brain. Chest X-Ray 10/19/24 15:35 IMPRESSION: 1. No acute cardiopulmonary disease. Labs Labs: Laboratory Results - last 24 hr 10/18/24 10/18/24 10/19/24 17:01 20:56 07:46 WBC RBC Hgb Hct MCV MCH MCHC RDW Plt Count MPV POC Capillary Glucose 313 H 304 H 270 H 10/19/24 10/19/24 08:04 11:33 WBC 10.9 H RBC 2.65 L Hgb 7.7 L Hct 24.3 L MCV 91.7 MCH 29.1 MCHC 31.7 L RDW 14.9 H Plt Count 308 MPV 10.1 POC Capillary Glucose 331 H Quality VTE Prophylaxis VTE prophylaxis: mechanical ordered Hospitalist MIPS Advance Care Plan I have confirmed that the patient's Advanced Care Plan is present, code status is documented, or surrogate decision maker is listed in patient medical record.: Yes Medication Reconciliation I have utilized all available resources to obtain, update and review the patients current medications (includes all prescriptions, OTC, herbals, cannabis, and nutritional supplements).: Yes
[2024-10-19] MEDS: DOXYCYCLINE HYCLATE 100 MG TABLET PO ×2 (16:49→20:13)
[2024-10-19] MEDS: FLUoxetine HCL 20 MG CAPSULE PO (16:49)
[2024-10-19] MEDS: AMOXICILLIN/CLAVULANATE K 875-125 MG TAB 1 TABLET PO ×2 (16:49→20:13)
[2024-10-19 17:07] LABS: Glucose Point of Care 263 mg/dl (65-105)
[2024-10-19] MEDS: SODIUM CHLORIDE 0.9% IV 1,000 ML 125 ML IV CONT (17:32)
[2024-10-19] MEDS: guaiFENesin/DEXTROMETHORPHAN 10 ML UDC PO (18:45)
[2024-10-19] MEDS: TAMSULOSIN HCL 0.4 MG CAPSULE PO (20:13)
[2024-10-19] MEDS: INSULIN GLARGINE (*BKC) 100 UNITS/ML 24 UNITS SUB-Q (20:22)
[2024-10-19 22:24] LABS: Glucose Point of Care 253 mg/dl (65-105)
[2024-10-20] VITALS (9 sets, daily range): BP systolic 100–140; BP diastolic 55–73; PULSE 80–92; RESP 18–20; TEMP 36.3–36.6; O2SAT 96–100
--- NOTE | 2024-10-20 | ECHO_ITS ---
Patient Info Name: Tad Henderson Age: 63 years : 1960 Gender: Male Ht: 70 in Wt: 268 lbs BSA: 2.50 m2 HR: 90 bpm BP: 137 / 73 mmHg Technical Quality: Good Exam Date: 10/20/2024 9:34 AM Exam Location: Echo Lab Ex[facility] Patient Status: Inpatient Admit Date: 10/17/2024 Staff Ordering Physician: Yoni Morton MD Software Lead: Radha Reyes RDCS Attending Provider: Nic Ortiz MD Exam Type: CA echo doppler color flow Study Info Indications - LOW BP Complete two-dimensional, color flow and Doppler transthoracic echocardiogram is performed. Summary 1. Complete two-dimensional, color flow and Doppler transthoracic echocardiogram is performed. 2. Left ventricular chamber dimension is mildly enlarged. 3. Left ventricular systolic function is normal, estimated at 60-65%. 4. The left ventricular diastolic function is grade I diastolic dysfunction. 5. E/e' 9 is minimally elevated. 6. Left atrial chamber dimension is mildly enlarged. 7. There is moderate aortic valve sclerosis. 8. The mitral valve has mildly calcified annulus. 9. There is trace tricuspid valve regurgitation. 10. No pulmonary hypertension, estimated pulmonary arterial systolic pressure is 35 mmHg. 11. The aortic root size at the sinus of Valsalva is mildly dilated at 4.2 cm. 12. The prox ascending aorta size is moderately dilated at 4.6 cm. 13. Normal inferior vena cava with >50% collapse upon inspiration consistent with elevated right atrial pressure, 10 mmHg. Left Ventricle E/e' 9 is minimally elevated. Left ventricular chamber dimension is mildly enlarged. Left ventricular systolic function is normal, estimated at 60-65%. The left ventricular diastolic function is grade I diastolic dysfunction. Right Ventricle Right ventricular systolic function is normal and with normal TAPSE 2.1 cm. Right ventricular chamber dimension is normal. Left Atria Left atrial chamber dimension is mildly enlarged. Right Atria Right atrial chamber dimension is normal. Aortic Valve The aortic valve is trileaflet. There is moderate aortic valve sclerosis. There is no aortic valve stenosis. There is no aortic valve regurgitation. Pulmonic Valve There is no pulmonic regurgitation. Mitral Valve The mitral valve has mildly calcified annulus. There is no mitral valve stenosis. There is no mitral valve regurgitation. Tricuspid Valve There is trace tricuspid valve regurgitation. No pulmonary hypertension, estimated pulmonary arterial systolic pressure is 35 mmHg. Pericardium/Pleural There is no pericardial effusion. Inferior Vena Cava Normal inferior vena cava with >50% collapse upon inspiration consistent with elevated right atrial pressure, 10 mmHg. Aorta The aortic root size at the sinus of Valsalva is mildly dilated at 4.2 cm. The prox ascending aorta size is moderately dilated at 4.6 cm. Left Ventricular Outflow Tract Name Value Normal LVOT 2D LVOT Diameter 2.2 cm LVOT Doppler LVOT Peak Gradient 6 mmHg LVOT Mean Gradient 3 mmHg LVOT VTI 26 cm LVOT VTI/AV VTI Ratio 0.7 LVOT Stroke Volume 101 ml LVOT CO 8.3 l/min LVOT CI 3.3 l/min/m2 Pulmonic Valve Name Value Normal PV Doppler PV Peak Gradient 5 mmHg Mitral Valve Name Value Normal MV Doppler MV Peak Gradient 6 mmHg MV Mean Gradient 3 mmHg MV Decel [place] 443 cm/s2 MV PHT 60 ms MV Area (PHT) 3.7 cm2 4.0-5.0 MV Area (Cont Eq VTI) 3.4 cm2 MV Diastolic Function MV E Peak Velocity 92 cm/s MV A Peak Velocity 118 cm/s MV E/A 0.8 MV Decel Time 208 ms MV Annular TDI MV E/e' (Septal) 12.6 <=8.0 MV E/e' (Lateral) 7.5 <=8.0 MV E/e' (Average) 10.1 Tricuspid Valve Name Value Normal TV Regurgitation Doppler TR Peak Velocity 250 cm/s TR Peak Gradient 19 mmHg Estimated PAP/RSVP RA Pressure 10 mmHg <=5 PA Systolic Pressure 35 mmHg <36 RV Systolic Pressure 35 mmHg <36 Aortic Valve Name Value Normal AV Doppler AV Peak Velocity 204 cm/s AV Peak Gradient 16 mmHg AV Mean Gradient 9 mmHg AV VTI 39 cm AV Area (Cont Eq VTI) 2.6 cm2 >=3.0 AV Area (Cont Eq Cecil) 2.4 cm2 AV Regurgitation 2D LVOT Area 3.9 cm2 Ventricles Name Value Normal LV Dimensions 2D/MM IVS Diastolic Thickness (2D) 1.0 cm 0.6-1.0 LVID Diastole (2D) 5.6 cm 4.2-5.8 LVIW Diastolic Thickness (2D) 1.0 cm 0.6-1.0 LVID Systole (2D) 3.6 cm 2.5-4.0 LVOT Diameter 2.2 cm LV Mass (2D Cubed) 226.72 g 88.00-224.00 LV Mass Index (2D Cubed) 91 g/m2 49-115 Relative Wall Thickness (2D) 0.37 LV Fractional Shortening/Ejection Fraction 2D/MM LV Fractional Shortening (2D) 36 % 25-43 LV EF (2D Teicholz) 65 % 52-72 LV Diastolic Volume (4C MOD) 177 ml LV EF (4C MOD) 70 % LV Diastolic Length (4C) 9.0 cm LV Systolic Length (4C) 7.2 cm LV Stroke Volume (4C MOD) 122 ml Atria Name Value Normal LA Dimensions LA Volume (4C A-L) 80 ml RA Dimensions RA Area (4C) 19.6 cm2 <=18.0 Report Signatures
[2024-10-20] MEDS: SODIUM CHLORIDE 0.9% IV 1,000 ML 125 ML IV CONT ×2 (02:07→10:09)
[2024-10-20 06:50] LABS: Hematocrit 22.9 % (42.0-52.0); Hemoglobin 7.2 g/dL (14.0-18.0); Mean Corpuscular HGB Conc 31.4 g/dl (32-36); Mean Corpuscular Hemoglobin 28.5 pg (26-34); Mean Corpuscular Volume 90.5 fl (80-100); Platelet Count Result 282 k/mm3 (150-375); Red Blood Count 2.53 M/mm3 (4.6-6.20); Red Cell Distribution Width 14.6 % (11.5-14.5); White Blood Count 9.3 K/mm3 (4.5-10.0)
[2024-10-20 07:00] LABS: Alanine Aminotransferase 18 U/L (6-50); Albumin Level 2.8 g/dL (3.5-5.1); Alkaline Phosphatase 77 U/L (38-126); Anion Gap 8 mmol/L (4-12); Aspartate Amino Transferase 15 U/L (17-59); Bilirubin,Total 0.7 mg/dL (0.2-1.3); Blood Urea Nitrogen 40 mg/dL (9-20); Calcium 7.6 mg/dL (8.4-10.2); Carbon Dioxide 23 mmol/L (22-30); Chloride 101 mmol/L (98-107); Estimated CRCL calculation 78 ml/min; Estimated Glomerular Filt Rate > 60; Glucose 243 mg/dL (65-110); Potassium 3.6 mmol/L (3.4-5.0); Sodium 132 mmol/L (137-145)
[2024-10-20 07:54] LABS: Glucose Point of Care 278 mg/dl (65-105)
[2024-10-20 08:34] LABS: Glucose Point of Care 270 mg/dl (65-105)
[2024-10-20 09:14] LABS: Iron < 10 ug/dL (49-181)
[2024-10-20 09:30] LABS: Percent Iron Saturation < 4 % (20-50)
[2024-10-20] MEDS: INSULIN ASPART (*BKC) 100 UNITS/ML SUB-Q ×4 (09:59→21:36)
[2024-10-20] MEDS: AMOXICILLIN/CLAVULANATE K 875-125 MG TAB 1 TABLET PO ×2 (10:00→21:34)
[2024-10-20] MEDS: POLYSACCHARIDE IRON COMPLEX 150 MG CAPSULE PO ×2 (10:00→16:52)
[2024-10-20] MEDS: PRAVASTATIN SODIUM 20 MG TABLET 40 MG PO (10:00)
[2024-10-20] MEDS: GABAPENTIN 300 MG CAPSULE 600 MG PO ×2 (10:00→21:34)
[2024-10-20] MEDS: DOXYCYCLINE HYCLATE 100 MG TABLET PO ×2 (10:00→21:34)
[2024-10-20] MEDS: PANTOPRAZOLE 40 MG TABLET PO (10:01)
[2024-10-20] MEDS: glipiZIDE 5 MG TABLET 10 MG PO ×2 (10:01→16:52)
[2024-10-20] MEDS: carvediloL 6.25 MG TABLET PO ×2 (10:01→21:41)
[2024-10-20] MEDS: EMTRICITABINE PO (10:03)
[2024-10-20] MEDS: [UNRECOGNIZED DRUG - OTHER] PO (10:03)
[2024-10-20] MEDS: hydroCHLOROthiazide 25 MG TABLET PO (10:11)
[2024-10-20] MEDS: lisinopriL 20 MG TABLET PO (10:12)
[2024-10-20 11:44] LABS: Glucose Point of Care 247 mg/dl (65-105)
--- NOTE | 2024-10-20 12:20 | PCPTNOTE ---
On 10/20/24, the student, RICHARD Lan, provided care and completed [facility] documentation on this patient. I have reviewed the student's documentation and agree with the findings.
[2024-10-20] MEDS: IRON SUCROSE COMPLEX 400 MG, IRON SUCROSE COMPLEX 100 MG in SODIUM CHLORIDE 0.9% IV 250 ML 78.57 MG IVPB (13:09)
[2024-10-20] MEDS: guaiFENesin/DEXTROMETHORPHAN 10 ML UDC PO ×2 (13:15→16:59)
--- NOTE | 2024-10-20 14:26 | P.PNIM_ITS ---
Progress Note: A&P Assessment and Plan (1) Influenza A: Code(s): J10.1 - Influenza due to other identified influenza virus with other respiratory manifestations Status: Acute Assessment and Plan: Patient is feeling much better now. Will continue with Tamiflu (2) Respiratory syncytial virus (RSV) infection: Code(s): B33.8 - Other specified viral diseases Status: Acute Assessment and Plan: Supportive care Guaifenesin Isolation (3) HIV (human immunodeficiency virus infection): Code(s): B20 - Human immunodeficiency virus [HIV] disease Status: Acute Assessment and Plan: Continue biktarvy Patient reports his last viral load was undetectable and CD4 was around 475. He was diagnosed with HIV in 1996. He follows with PCP who manages his HIV. Ordered PCP smear, viral load and CD4 count. Added Amox/clav and doxycycline for possible superimposed bacterial infection and increased WBC. (4) Weakness: Code(s): R53.1 - Weakness Status: Acute Assessment and Plan: PT OT evaluate and treat Hydration received some fluid in the ER (5) Hypertension: Code(s): I10 - Essential (primary) hypertension Status: Acute Assessment and Plan: Continue home medications (6) BPH (benign prostatic hyperplasia): Code(s): N40.0 - Benign prostatic hyperplasia without lower urinary tract symptoms Status: Acute Assessment and Plan: Continue medications (7) Anemia: Code(s): D64.9 - Anemia, unspecified Status: Acute Assessment and Plan: hb 7.[address] AP and chest ordered for Hypotension and anemia isat less than 4, started on IV iron 500/1000. Follow-up with a CT abdomen and chest to rule out bleed Occult blood stool ordered GI consult. Monitor H&H. (8) Hypotension: Code(s): I95.9 - Hypotension, unspecified Status: Acute Assessment and Plan: Lower GI bleed Echo showed normal EF with grade 1 diastolic dysfunction. Follow-up with CT abdomen and chest or pelvis. Plan DVT prophylaxis SCDs pending GI eval. Subjective Date/time seen: 10/20/24 14:26 Interval history: Patient was lethargic this morning and hb 7.2, still on 125 cc/hr of NS CT chest and AP ordered and GI consulted given iron deficiency anemia with hypotension. Review of Systems Review of Systems: 12 systems were reviewed and are negativ e except for as per HPI. All systems reviewed & are unremarkable except as noted in HPI and below Exam Narrative: General: No acute distress alert and oriented x3 HEENT: normocephalic, atraumatic. Mucous membranes moist. EOMI, PERRLA, bilateral sclera anicteric, no conjunctival injection. Neck supple without JVD, lymphadenopathy, or bruit. Respiratory: Dry cough, diminished Cardiovascular: Regular rate and rhythm, normal S1-S2 upon ascultation. Abdomen: Obese Soft, distended and nontender. Extremities: No cyanosis, clubbing, or edema present. Pulses are palpable 2/2. Active ROM to all four extremities. Neuro: Alert and orientated x 4. PERRLA. Cranial nerves 2-12 intact without focal deficit. Skin: Warm, dry, and intact, without rash, erythema, or lesion. Psych: pleasant, cooperative, normal speech, normal affect, no hallucinations, no dysarthia Objective Data Vital Signs Vital Signs: Vital Signs - 24 hr 10/19/24 16:55 10/19/24 16:56 10/19/24 18:59 Temperature Pulse Rate Respiratory Rate 18 Blood Pressure 79/66 L 88/62 L 97/57 L Pulse Oximetry 96 Oxygen Delivery 10/19/24 20:00 10/19/24 20:17 10/20/24 00:00 Temperature 97.0 F L Pulse Rate 73 74 Respiratory Rate 20 Blood Pressure 100/58 L Pulse Oximetry 97 Oxygen Delivery 10/20/24 04:00 10/20/24 08:00 10/20/24 10:00 Temperature 97.7 F 97.5 F L Pulse Rate 86 90 Respiratory Rate 20 18 Blood Pressure 114/55 L 137/73 Pulse Oximetry 99 99 Oxygen Delivery Room Air 10/20/24 10:01 10/20/24 11:46 Temperature 97.3 F L Pulse Rate 90 92 Respiratory Rate 18 Blood Pressure 124/65 Pulse Oximetry 100 Oxygen Delivery Intake/Output Intake/Output: Intake & Output 10/17/24 10/18/24 10/19/24 10/20/24 23:59 23:59 23:59 23:59 Intake Total 924 605 0872 2440 Output Total 500 9967 259 1949 Balance 416 -390 1320 1165 Meds/Results Medications: Active Medications Generic Name Dose Route Start Last Admin Trade Name Freq PRN Reason Stop Dose Admin Acetaminophen 650 mg 02/12/25 19:30 10/19/24 12:26 Acetaminophen 325 Mg Tablet PO 650 mg Q4H PRN Administration Mild Pain (1-3) or Fever Amoxicillin/Clavulanate Potassium 1 tablet 10/19/24 14:30 10/20/24 10:00 Amoxicillin/Clavulanate K 875-125 Mg Tab PO 10/25/24 21:01 1 tablet Q12HR CLAYTON Administration Carvedilol 6.25 mg 10/14/24 23:05 10/20/24 10:01 Carvedilol 6.25 Mg Tablet PO 6.25 mg Q12HR CLAYTON Administration Dextrose 12.5 gm 10/14/24 19:30 Dextrose 50% 25 Gm/50 Ml Syringe IV PUSH PRN PRN Hypoglycemia Protocol Doxycycline Hyclate 100 mg 10/19/24 14:30 10/20/24 10:00 Doxycycline Hyclate 100 Mg Tablet PO 10/23/24 21:01 100 mg Q12HR CLAYTON Administration Fluoxetine HCl 20 mg 10/14/24 23:05 10/19/24 16:49 Fluoxetine Hcl 20 Mg Capsule PO 20 mg QPM CLAYTON Administration Gabapentin 600 mg 10/14/24 22:55 10/20/24 10:00 Gabapentin 300 Mg Capsule PO 600 mg Q12HR CLAYTON Administration Glipizide 10 mg 10/17/24 17:00 10/20/24 10:01 Glipizide 5 Mg Tablet PO 10 mg BID CLAYTON Administration Glucagon 1 mg 10/14/24 19:30 Glucagon For Inj 1 Mg Vial IM PRN PRN Hypoglycemia Protocol Glucose 15 gm 10/14/24 19:30 Glucose Oral Gel 15 Gm Of Glucse In 37.5 Gm Tube PO PRN PRN Hypoglycemia Protocol Guaifenesin/Dextromethorphan 10 ml 10/17/24 17:49 10/20/24 13:15 Guaifenesin/Dextromethorphan 10 Ml Udc PO 10 ml Q4H PRN Administration Cough Hydrochlorothiazide 25 mg 10/15/24 09:00 10/20/24 10:11 Hydrochlorothiazide 25 Mg Tablet PO 25 mg DAILY CLAYTON Administration Dextrose 1,000 mls @ 100 mls/hr 10/14/24 19:30 Dextrose 5% 1,000 Ml IVPB PRN PRN Hypoglycemia Protocol Sodium Chloride 1,000 mls @ 125 mls/hr 10/19/24 17:00 10/20/24 10:09 Normal Saline Iv IV CONT 125 mls/hr .Q8H CLAYTON Administration Iron Sucrose 400 mg/ Iron 275 mls @ 78.571 mls/hr 10/20/24 13:00 10/20/24 13:09 Sucrose 100 mg/ Sodium IVPB 10/20/24 16:29 78.57 mls/hr Chloride ONCE ONE Administration Insulin Aspart 2 - 5 units 10/15/24 08:00 10/20/24 13:09 Insulin Aspart (*Bkc) 100 Units/Ml SUB-Q 2 units TIDWM CLAYTON Administration Protocol Insulin Aspart 1 - 2 units 10/14/24 21:00 10/19/24 20:18 Insulin Aspart (*Bkc) 100 Units/Ml SUB-Q 1 units HS CLAYTON Administration Protocol Insulin Glargine 24 units 10/15/24 21:00 10/19/24 20:22 Insulin Glargine (*Bkc) 100 Units/Ml 0.2 units/kg (24 units) 24 units SUB-Q Administration [facility] Lisinopril 20 mg 10/15/24 09:00 10/20/24 10:12 Lisinopril 20 Mg Tablet PO 20 mg DAILY CLAYTON Administration Non-Formulary ( 1 each 10/15/24 09:00 10/20/24 10:03 Bictegravir Sodium/ PO 11/14/24 08:59 1 each Emtricitabine/ DAILY CLAYTON Administration Tenofovir Alafenamide Fumar 50 Mg-...) Pantoprazole Sodium 40 mg 10/16/24 11:25 10/20/24 10:01 Pantoprazole 40 Mg Tablet PO 40 mg QAM CLAYTON Administration Perflutren Lipid Microsphere 0 ml 10/19/24 16:58 Perflutren Lipid Microspheres 1.5 Ml Vial Diluted To 10 Ml Total Volume IV PUSH 10/22/24 16:58 ONCE PRN adequate visualization Protocol Perflutren Lipid Microsphere 0 ml 10/19/24 17:07 Perflutren Lipid Microspheres 1.5 Ml Vial Diluted To 10 Ml Total Volume IV PUSH 10/22/24 17:07 ONCE PRN adequate visualization Protocol Polysaccharide Iron Complex 150 mg 10/16/24 17:00 10/20/24 10:00 Polysaccharide Iron Complex 150 Mg Capsule PO 150 mg BIDWM CLAYTON Administration Pravastatin Sodium 40 mg 10/15/24 09:00 10/20/24 10:00 Pravastatin Sodium 20 Mg Tablet PO 40 mg DAILY CLAYTON Administration Tamsulosin HCl 0.4 mg 10/14/24 23:05 10/19/24 20:13 Tamsulosin Hcl 0.4 Mg Capsule PO 0.4 mg HS CLAYTON Administration Radiology Results: ITS Impressions Head CT 10/14/24 11:41 IMPRESSION: 1. Normal brain. Chest X-Ray 10/19/24 15:35 IMPRESSION: 1. No acute cardiopulmonary disease. Labs Labs: Laboratory Results - last 24 hr 10/19/24 10/19/24 10/20/24 16:39 20:12 06:08 WBC 9.3 RBC 2.53 L Hgb 7.2 L Hct 22.9 L MCV 90.5 MCH 28.5 MCHC 31.4 L RDW 14.6 H Plt Count 282 MPV 10.0 Sodium 132 L Potassium 3.6 Chloride 101 Carbon Dioxide 23 Anion Gap 8 BUN 40 H Creatinine 1.11 Estim Creat Clear Calc 78 Estimated GFR > 60 Glucose 243 H POC Capillary Glucose 263 H 253 H Calcium 7.6 L Iron < 10 L TIBC 224 L % Saturation < 4 L Ferritin 80.70 Total Bilirubin 0.7 AST 15 L ALT 18 Alkaline Phosphatase 77 Total Protein 6.0 L Albumin 2.8 L 10/20/24 10/20/24 10/20/24 07:30 08:21 11:30 WBC RBC Hgb Hct MCV MCH MCHC RDW Plt Count MPV Sodium Potassium Chloride Carbon Dioxide Anion Gap BUN Creatinine Estim Creat Clear Calc Estimated GFR Glucose POC Capillary Glucose 278 H 270 H 247 H Calcium Iron TIBC % Saturation Ferritin Total Bilirubin AST ALT Alkaline Phosphatase Total Protein Albumin Quality VTE Prophylaxis VTE prophylaxis: mechanical ordered
[2024-10-20 16:31] LABS: Glucose Point of Care 245 mg/dl (65-105)
[2024-10-20] MEDS: FLUoxetine HCL 20 MG CAPSULE PO (17:00)
--- NOTE | 2024-10-20 17:25 | P.CONGI_ITS ---
Assessment and Plan Assessment and plan (1) Iron deficiency anemia: Code(s): D50.9 - Iron deficiency anemia, unspecified Status: Acute Assessment and Plan: differential diagnosis for iron deficiency anemia is broad, including peptic ulcer disease, hiatal hernia with erosions, erosive esophagitis, or gastric neoplasms. In addition, colonic angiodysplasias or neoplasia are also considered. Therefore, an EGD and colonoscopy are indicated and will be scheduled for this coming . GI Consult Note Consult date/time: 10/20/24 17:25 HPI: Tad Henderson is a 63 year old male With a history of HIV diagnosed in 1996, currently under anti-retroviral treatment, who was admitted for shortness of breath and later found to have influenza. The patient just came out of isolation. Return the reason for the consultation is the finding of a low hemoglobin level 7.2, with iron deficiency: Iron saturation less than 4%. The patient does report passing black stools for several days last week, but he was also taking Pepto-Bismol for sharp epigastric pain. He had a colonoscopy many years ago but never had an EGD. Patient does not take any NSAIDs. Review of Systems 2 Review of Systems: All systems reviewed & are unremarkable except as noted in HPI and below PMFSH Past Medical History Medical History (Updated 10/20/24 @ 17:27 by Cordell Phillip MD) Hypertension BPH (benign prostatic hyperplasia) HIV (human immunodeficiency virus infection) COVID Surgical History Surgical History (Updated 06/17/23 @ 10:01 by Hillary Cui CMA) History of tonsillectomy (~1993) Family History Family History (Updated 10/14/24 @ 16:48 by Ninfa Jorge RN) Sibling Acute myocardial infarction Diabetes mellitus Mother Asthma Diabetes mellitus Other Colon cancer Father Chronic obstructive pulmonary disease Social History Social History (Updated 06/13/23 @ 09:48 by Hillary Horn MA) Smoking status: Never smoker Second hand tobacco smoke exposure: Yes Alcohol intake: former Substance use: never Substance use type: does not use Do You Feel Safe in your Home?: Yes Lack of Transportation: No Lack of Food: Never True Current Housing: I Have Housing Concerned About Future Housing: No Difficulty Paying Gas/Electric Bills: No Difficulty Paying for Meds: No Currently Unemployed: No Education: High School Diploma/GED Difficulty w/ Childcare or Family Care: No Gender identity (if verbalized by the patient): Male Spiritual care concerns: No Meds Home Medications and Allergies Home Medications ?Medication ?Instructions ?Recorded ?Confirmed ?Type amoxicillin 875 mg-potassium 1 tablet PO Q12H 10/14/24 10/14/24 History clavulanate 125 mg tablet aspirin 81 mg tablet,delayed 81 mg PO BID 10/14/24 10/14/24 History release bictegravir 50 mg-emtricitabine 1 tablet PO DAILY 10/14/24 10/14/24 History 200 mg-tenofovir alafenam 25 mg tablet (Biktarvy) carvedilol 6.25 mg tablet 6.25 mg PO BID 10/14/24 10/14/24 History empagliflozin 25 mg tablet 25 mg PO DAILY 10/14/24 10/14/24 History (Jardiance) fluoxetine 20 mg capsule 20 mg PO QPM 10/14/24 10/14/24 History gabapentin 600 mg tablet 600 mg PO Q12H 10/14/24 10/14/24 History glipizide 10 mg tablet 10 mg PO BID 10/14/24 10/14/24 History insulin glargine 100 unit/mL (3 300 unit subcut QPM 10/14/24 10/14/24 History mL) subcutaneous pen (Lantus Solostar U-100 Insulin) lisinopril 20 1 tablet PO DAILY 10/14/24 10/14/24 History mg-hydrochlorothiazide 25 mg tablet naproxen 500 mg tablet 500 mg PO Q12H 10/14/24 10/14/24 History pravastatin 40 mg tablet 40 mg PO DAILY 10/14/24 10/14/24 History tamsulosin 0.4 mg capsule 0.4 mg PO HS 10/14/24 10/14/24 History Allergies Allergy/AdvReac Type Severity Reaction Status Date / Time abacavir Allergy Unknown platelet Verified 10/14/24 16:59 Sulfa (Sulfonamide Allergy Unknown Rash Verified 10/14/24 16:59 Antibiotics) Vital Signs Vital Signs - 24 hr 10/19/24 18:59 10/19/24 20:00 10/19/24 20:17 Temperature 97.0 F L Pulse Rate 73 74 Respiratory Rate 20 Blood Pressure 97/57 L Pulse Oximetry 97 Oxygen Delivery 10/20/24 00:00 10/20/24 04:00 10/20/24 08:00 Temperature 97.7 F 97.5 F L Pulse Rate 86 90 Respiratory Rate 20 18 Blood Pressure 100/58 L 114/55 L 137/73 Pulse Oximetry 99 99 Oxygen Delivery 10/20/24 10:00 10/20/24 10:01 10/20/24 11:46 Temperature 97.3 F L Pulse Rate 90 92 Respiratory Rate 18 Blood Pressure 124/65 Pulse Oximetry 100 Oxygen Delivery Room Air 10/20/24 16:00 Temperature 97.5 F L Pulse Rate 86 Respiratory Rate 20 Blood Pressure 120/59 L Pulse Oximetry 96 Oxygen Delivery Exam 2 Const: General: cooperative and healthy appearing Resp: Effort & Inspection: normal respiratory effort and able to speak in complete sentences Auscultation: clear to auscultation bilaterally Cardio: Rate: regular rate Rhythm: regular rhythm GI: Inspection: normal to inspection GI Palp: No No hepatosplenomegaly present Auscultation: normal bowel sounds Rectal Exam: deferred Skin: General skin exam: normal color Psych: Appearance: grossly normal Mental Status: mental status grossly normal Results Labs 10/20/24 06:08 10/20/24 06:08 Labs: Short CBC 10/20/24 Range/Units 06:08 WBC 9.3 (4.5-10.0) K/mm3 Hgb 7.2 L (14.0-18.0) g/dL Hct 22.9 L (42.0-52.0) % Plt Count 282 (150-375) k/mm3 BMP 10/20/24 06:08 Sodium 132 L Potassium 3.6 Chloride 101 Carbon Dioxide 23 BUN 40 H Creatinine 1.11 Glucose 243 H Calcium 7.6 L Liver Function 10/20/24 Range/Units 06:08 Total Bilirubin 0.7 (0.2-1.3) mg/dL AST 15 L (17-59) U/L ALT 18 (6-50) U/L Alkaline Phosphatase 77 (38-126) U/L Albumin 2.8 L (3.5-5.1) g/dL
[2024-10-20 21:33] LABS: Glucose Point of Care 276 mg/dl (65-105)
[2024-10-20] MEDS: TAMSULOSIN HCL 0.4 MG CAPSULE PO (21:34)
[2024-10-20] MEDS: INSULIN GLARGINE (*BKC) 100 UNITS/ML 24 UNITS SUB-Q (21:35)
[2024-10-20 23:48] LABS: Absolute CD4 Count 748 cells/uL (490-1740); Lymphocytes, Absolute 2114 cells/uL (850-3900); Percent CD4 Cells 35 % (30-61)
[2024-10-21] VITALS (13 sets, daily range): BP systolic 101–137; BP diastolic 55–81; PULSE 69–85; RESP 16–20; TEMP 36.1–37.4; O2SAT 97–100
[2024-10-21] MEDS: SODIUM CHLORIDE 0.9% IV 1,000 ML 125 ML IV CONT ×2 (05:45→14:17)
--- NOTE | 2024-10-21 07:09 | P.PNGI_ITS ---
Progress Note: A&P Assessment and Plan (1) Anemia: Code(s): D64.9 - Anemia, unspecified Status: Acute Assessment and Plan: Patient with iron deficiency anemia, to be investigated. Will do colonoscopy and EGD tomorrow. Prep instructions placed in the chart. Time Spent With Patient Time with patient: less than 15 minutes Subjective Date/time seen: 10/21/24 07:09 Interval history: The patient did well last night except for some persistent cough. Exam Narrative: Unchanged from yesterday's exam. Objective Data Vital Signs Vital Signs: Vital Signs - 24 hr 10/20/24 08:00 10/20/24 10:00 10/20/24 10:01 Temperature 97.5 F L Pulse Rate 90 90 Respiratory Rate 18 Blood Pressure 137/73 Pulse Oximetry 99 Oxygen Delivery Room Air 10/20/24 11:46 10/20/24 16:00 10/20/24 20:00 Temperature 97.3 F L 97.5 F L 97.7 F Pulse Rate 92 86 87 Respiratory Rate 18 20 18 Blood Pressure 124/65 120/59 L 123/64 Pulse Oximetry 100 96 97 Oxygen Delivery 10/20/24 21:41 10/20/24 23:46 10/21/24 04:00 Temperature 97.8 F 98.4 F Pulse Rate 81 80 80 Respiratory Rate 20 20 Blood Pressure 140/62 107/58 L Pulse Oximetry 98 98 Oxygen Delivery Intake/Output Intake/Output: Intake & Output 10/18/24 10/19/24 10/20/24 10/21/24 23:59 23:59 23:59 23:59 Intake Total 660 1920 5195 100 Output Total 6482 678 2156 500 Balance -390 1320 1645 -400 Meds/Results Medications: Active Medications Generic Name Dose Route Start Last Admin Trade Name Freq PRN Reason Stop Dose Admin Acetaminophen 650 mg 10/14/24 19:30 10/19/24 12:26 Acetaminophen 325 Mg Tablet PO 650 mg Q4H PRN Administration Mild Pain (1-3) or Fever Amoxicillin/Clavulanate Potassium 1 tablet 10/19/24 14:30 10/20/24 21:34 Amoxicillin/Clavulanate K 875-125 Mg Tab PO 10/25/24 21:01 1 tablet Q12HR [facility] Administration Carvedilol 6.25 mg 10/14/24 23:05 10/20/24 21:41 Carvedilol 6.25 Mg Tablet PO 6.25 mg Q12HR [place] Administration Dextrose 12.5 gm 10/14/24 19:30 Dextrose 50% 25 Gm/50 Ml Syringe IV PUSH PRN PRN Hypoglycemia Protocol Doxycycline Hyclate 100 mg 10/19/24 14:30 10/20/24 21:34 Doxycycline Hyclate 100 Mg Tablet PO 10/23/24 21:01 100 mg Q12HR [place] Administration Fluoxetine HCl 20 mg 10/14/24 23:05 10/20/24 17:00 Fluoxetine Hcl 20 Mg Capsule PO 20 mg QPM [facility] Administration Gabapentin 600 mg 10/14/24 22:55 10/20/24 21:34 Gabapentin 300 Mg Capsule PO 600 mg Q12HR [facility] Administration Glipizide 10 mg 10/17/24 17:00 10/20/24 16:52 Glipizide 5 Mg Tablet PO 10 mg BID [facility] Administration Glucagon 1 mg 10/14/24 19:30 Glucagon For Inj 1 Mg Vial IM PRN PRN Hypoglycemia Protocol Glucose 15 gm 10/14/24 19:30 Glucose Oral Gel 15 Gm Of Glucse In 37.5 Gm Tube PO PRN PRN Hypoglycemia Protocol Guaifenesin/Dextromethorphan 10 ml 10/17/24 17:49 10/20/24 16:59 Guaifenesin/Dextromethorphan 10 Ml Udc PO 10 ml Q4H PRN Administration Cough Hydrochlorothiazide 25 mg 10/15/24 09:00 10/20/24 10:11 Hydrochlorothiazide 25 Mg Tablet PO 25 mg DAILY [facility] Administration Dextrose 1,000 mls @ 100 mls/hr 10/14/24 19:30 Dextrose 5% 1,000 Ml IVPB PRN PRN Hypoglycemia Protocol Sodium Chloride 1,000 mls @ 125 mls/hr 10/19/24 17:00 10/21/24 05:45 Normal Saline Iv IV CONT 125 mls/hr .Q8H [facility] Administration Insulin Aspart 2 - 5 units 10/15/24 08:00 10/20/24 16:52 Insulin Aspart (*Bkc) 100 Units/Ml SUB-Q 2 units TIDWM [place] Administration Protocol Insulin Aspart 1 - 2 units 10/14/24 21:00 10/20/24 21:36 Insulin Aspart (*Bkc) 100 Units/Ml SUB-Q 1 units HS [facility] Administration Protocol Insulin Glargine 24 units 10/15/24 21:00 10/20/24 21:35 Insulin Glargine (*Bkc) 100 Units/Ml 0.2 units/kg (24 units) 24 units SUB-Q Administration HS [facility] Lisinopril 20 mg 10/15/24 09:00 10/20/24 10:12 Lisinopril 20 Mg Tablet PO 20 mg DAILY [place] Administration Non-Formulary ( 1 each 10/15/24 09:00 10/20/24 10:03 Bictegravir Sodium/ PO 11/14/24 08:59 1 each Emtricitabine/ DAILY [place] Administration Tenofovir Alafenamide Fumar 50 Mg-...) Pantoprazole Sodium 40 mg 10/16/24 11:25 10/20/24 10:01 Pantoprazole 40 Mg Tablet PO 40 mg QAM [place] Administration Perflutren Lipid Microsphere 0 ml 10/19/24 16:58 Perflutren Lipid Microspheres 1.5 Ml Vial Diluted To 10 Ml Total Volume IV PUSH 10/22/24 16:58 ONCE PRN adequate visualization Protocol Perflutren Lipid Microsphere 0 ml 10/19/24 17:07 Perflutren Lipid Microspheres 1.5 Ml Vial Diluted To 10 Ml Total Volume IV PUSH 10/22/24 17:07 ONCE PRN adequate visualization Protocol Polyethylene Glycol 119 gm 10/21/24 20:00 Polyethylene Glycol 3350 238 Gm Bottle PO 10/22/24 05:01 BID@0500,2000 [facility] Polysaccharide Iron Complex 150 mg 10/16/24 17:00 10/20/24 16:52 Polysaccharide Iron Complex 150 Mg Capsule PO 150 mg BIDWM [place] Administration Pravastatin Sodium 40 mg 10/15/24 09:00 10/20/24 10:00 Pravastatin Sodium 20 Mg Tablet PO 40 mg DAILY [place] Administration Tamsulosin HCl 0.4 mg 10/14/24 23:05 10/20/24 21:34 Tamsulosin Hcl 0.4 Mg Capsule PO 0.4 mg HS [facility] Administration Radiology Results: ITS Impressions Head CT 10/14/24 11:41 IMPRESSION: 1. Normal brain. Chest X-Ray 10/19/24 15:35 IMPRESSION: 1. No acute cardiopulmonary disease. Chest/Abdomen/Pelvis CT 10/20/24 14:52 IMPRESSION: 1. Right lower lobe pneumonia. Labs Labs: Laboratory Results - last 24 hr 10/19/24 10/20/24 10/20/24 14:39 06:08 07:30 POC Capillary Glucose 278 H Iron < 10 L TIBC 224 L % Saturation < 4 L Ferritin 80.70 Absolute Lymphocytes 2114 % CD4 Cells 35 Absolute CD4 Count 748 10/20/24 10/20/24 10/20/24 08:21 11:30 16:13 POC Capillary Glucose 270 H 247 H 245 H Iron TIBC % Saturation Ferritin Absolute Lymphocytes % CD4 Cells Absolute CD4 Count 10/20/24 20:32 POC Capillary Glucose 276 H Iron TIBC % Saturation Ferritin Absolute Lymphocytes % CD4 Cells Absolute CD4 Count
[2024-10-21 07:34] LABS: Basophils Percent Auto 0.4 % (0.2-1.2); Eosinophils Absolute Auto 0.1 K/mm3 (0-0.3); Eosinophils Percent Auto 1.6 % (0-4.4); Hematocrit 21.9 % (42.0-52.0); Immature Granulocyte Absolute 0.05 K/mm3 (0.00-0.031); Immature Granulocyte Percent A 0.6 % (0-0.5); Mean Corpuscular HGB Conc 31.5 g/dl (32-36); Mean Corpuscular Hemoglobin 28.8 pg (26-34); Mean Corpuscular Volume 91.3 fl (80-100); Mean Platelet Volume 9.5 fl (7.4-10.4); Monocytes Absolute Auto 0.9 K/mm3 (0.1-0.6); Monocytes Percent Auto 10.3 % (2.6-8.5); Neutrophils Absolute Auto 6.1 K/mm3 (1.3-6.7); Neutrophils Percent Auto 68.1 % (45.5-73.1); Platelet Count Result 298 k/mm3 (150-375)
[2024-10-21 07:39] LABS: Hemoglobin 6.9 g/dL (14.0-18.0)
[2024-10-21 07:52] LABS: Alanine Aminotransferase 17 U/L (6-50); Albumin Level 2.6 g/dL (3.5-5.1); Alkaline Phosphatase 71 U/L (38-126); Anion Gap 5 mmol/L (4-12); Aspartate Amino Transferase 19 U/L (17-59); Bilirubin,Total 0.6 mg/dL (0.2-1.3); Blood Urea Nitrogen 22 mg/dL (9-20); Calcium 7.9 mg/dL (8.4-10.2); Carbon Dioxide 28 mmol/L (22-30); Chloride 104 mmol/L (98-107); Estimated CRCL calculation 117 ml/min; Estimated Glomerular Filt Rate > 60; Glucose 169 mg/dL (65-110); Magnesium 1.9 mg/dL (1.6-2.3); Sodium 137 mmol/L (137-145)
[2024-10-21 08:22] LABS: Glucose Point of Care 171 mg/dl (65-105)
[2024-10-21] MEDS: EMTRICITABINE PO (09:04)
[2024-10-21] MEDS: GABAPENTIN 300 MG CAPSULE 600 MG PO ×2 (09:04→21:14)
[2024-10-21] MEDS: [UNRECOGNIZED DRUG - OTHER] PO (09:04)
[2024-10-21] MEDS: AMOXICILLIN/CLAVULANATE K 875-125 MG TAB 1 TABLET PO ×2 (09:04→21:15)
[2024-10-21] MEDS: glipiZIDE 5 MG TABLET 10 MG PO ×2 (09:04→17:45)
[2024-10-21] MEDS: POLYSACCHARIDE IRON COMPLEX 150 MG CAPSULE PO ×2 (09:04→17:48)
[2024-10-21] MEDS: PRAVASTATIN SODIUM 20 MG TABLET 40 MG PO (09:06)
[2024-10-21] MEDS: lisinopriL 20 MG TABLET PO (09:06)
[2024-10-21] MEDS: DOXYCYCLINE HYCLATE 100 MG TABLET PO ×2 (09:06→21:14)
[2024-10-21] MEDS: PANTOPRAZOLE 40 MG TABLET PO (09:10)
[2024-10-21 11:21] LABS: Glucose Point of Care 234 mg/dl (65-105)
[2024-10-21] MEDS: INSULIN ASPART (*BKC) 100 UNITS/ML SUB-Q ×2 (12:39→17:47)
[2024-10-21] MEDS: IRON SUCROSE COMPLEX 400 MG, IRON SUCROSE COMPLEX 100 MG in SODIUM CHLORIDE 0.9% IV 250 ML 78.57 MG IVPB (14:17)
--- NOTE | 2024-10-21 15:10 | PM.IMPN ---
Progress Note: A&P Assessment and Plan (1) Influenza A: Code(s): J10.1 - Influenza due to other identified influenza virus with other respiratory manifestations Status: Acute Assessment and Plan: Patient is feeling much better now. Will continue with Tamiflu (2) Respiratory syncytial virus (RSV) infection: Code(s): B33.8 - Other specified viral diseases Status: Acute Assessment and Plan: Supportive care Guaifenesin Isolation (3) HIV (human immunodeficiency virus infection): Code(s): B20 - Human immunodeficiency virus [HIV] disease Status: Acute Assessment and Plan: Continue biktarvy Patient reports his last viral load was undetectable and CD4 was around 475. He was diagnosed with HIV in 1996. He follows with PCP who manages his HIV. Ordered PCP smear, viral load and CD4 count. Added Amox/clav and doxycycline for possible superimposed bacterial infection and increased WBC. (4) Weakness: Code(s): R53.1 - Weakness Status: Acute Assessment and Plan: PT OT evaluate and treat Hydration received some fluid in the ER (5) Hypertension: Code(s): I10 - Essential (primary) hypertension Status: Acute Assessment and Plan: Continue home medications (6) BPH (benign prostatic hyperplasia): Code(s): N40.0 - Benign prostatic hyperplasia without lower urinary tract symptoms Status: Acute Assessment and Plan: Continue medications (7) Anemia: Code(s): D64.9 - Anemia, unspecified Status: Acute Assessment and Plan: hb 6.[address] AP and chest ordered for Hypotension and anemia isat less than 4, started on IV iron 1000/1000. Follow-up with a CT abdomen and chest showed RLL pneumonia For endoscopy GI following (8) Hypotension: Code(s): I95.9 - Hypotension, unspecified Status: Acute Assessment and Plan: Lower GI bleed Echo showed normal EF with grade [address] AP no acute changes BP stable for endoscopy Plan DVT prophylaxis SCDs pending endoscopy Subjective Date/time seen: 10/21/24 15:10 Interval history: Patient comfortable at bedside For Endoscopy tomorrow Hb 6.9 this morning and transfused 1 unit pRBC Review of Systems Review of Systems: 12 systems were reviewed and are negative except for as per HPI. All systems reviewed & are unremarkable except as noted in HPI and below Exam Narrative: General: No acute distress alert and oriented x3 HEENT: normocephalic, atraumatic. Mucous membranes moist. EOMI, PERRLA, bilateral sclera anicteric, no conjunctival injection. Neck supple without JVD, lymphadenopathy, or bruit. Respiratory: Dry cough, diminished Cardiovascular: Regular rate and rhythm, normal S1-S2 upon ascultation. Abdomen: Obese Soft, distended and nontender. Extremities: No cyanosis, clubbing, or edema present. Pulses are palpable 2/2. Active ROM to all four extremities. Neuro: Alert and orientated x 4. PERRLA. Cranial nerves 2-12 intact without focal deficit. Skin: Warm, dry, and intact, without rash, erythema, or lesion. Psych: pleasant, cooperative, normal speech, normal affect, no hallucinations, no dysarthia Objective Data Vital Signs Vital Signs: Vital Signs - 24 hr 10/20/24 16:00 10/20/24 20:00 10/20/24 21:41 Temperature 97.5 F L 97.7 F Pulse Rate 86 87 81 Respiratory Rate 20 18 Blood Pressure 120/59 L 123/64 Pulse Oximetry 96 97 Oxygen Delivery 10/20/24 23:46 10/21/24 04:00 10/21/24 08:00 Temperature 97.8 F 98.4 F 97.6 F Pulse Rate 80 80 74 Respiratory Rate 20 20 18 Blood Pressure 140/62 107/58 L 101/81 Pulse Oximetry 98 98 97 Oxygen Delivery 10/21/24 09:05 10/21/24 11:13 10/21/24 11:29 Temperature 98 F 98 F Pulse Rate 80 80 Respiratory Rate 16 16 Blood Pressure 137/72 130/79 Pulse Oximetry 97 97 Oxygen Delivery Room Air 10/21/24 11:40 10/21/24 12:29 10/21/24 13:29 Temperature 99.3 F 97.5 F L 97 F L Pulse Rate 76 69 72 Respiratory Rate 20 16 16 Blood Pressure 137/72 114/63 126/62 Pulse Oximetry 99 100 100 Oxygen Delivery 10/21/24 13:46 10/21/24 14:00 Temperature 97.5 F L 98 F Pulse Rate 71 70 Respiratory Rate 20 16 Blood Pressure 127/66 133/66 Pulse Oximetry 100 100 Oxygen Delivery Intake/Output Intake/Output: Intake & Output 10/18/24 10/19/24 10/20/24 10/21/24 23:59 23:59 23:59 23:59 Intake Total 660 1920 5195 2650 Output Total 2706 998 7369 500 Balance -390 1320 1645 2150 Meds/Results Medications: Active Medications Generic Name Dose Route Start Last Admin Trade Name Freq PRN Reason Stop Dose Admin Acetaminophen 650 mg 10/14/24 19:30 10/19/24 12:26 Acetaminophen 325 Mg Tablet PO 650 mg Q4H PRN Administration Mild Pain (1-3) or Fever Amoxicillin/Clavulanate Potassium 1 tablet 10/19/24 14:30 10/21/24 09:04 Amoxicillin/Clavulanate K 875-125 Mg Tab PO 10/25/24 21:01 1 tablet Q12HR [place] Administration Carvedilol 6.25 mg 10/14/24 23:05 10/21/24 09:13 Carvedilol 6.25 Mg Tablet PO Not Given Q12HR [place] Dextrose 12.5 gm 10/14/24 19:30 Dextrose 50% 25 Gm/50 Ml Syringe IV PUSH PRN PRN Hypoglycemia Protocol Doxycycline Hyclate 100 mg 10/19/24 14:30 10/21/24 09:06 Doxycycline Hyclate 100 Mg Tablet PO 10/23/24 21:01 100 mg Q12HR [place] Administration Fluoxetine HCl 20 mg 10/14/24 23:05 10/20/24 17:00 Fluoxetine Hcl 20 Mg Capsule PO 20 mg QPM [place] Administration Gabapentin 600 mg 10/14/24 22:55 10/21/24 09:04 Gabapentin 300 Mg Capsule PO 600 mg Q12HR [place] Administration Glipizide 10 mg 10/17/24 17:00 10/21/24 09:04 Glipizide 5 Mg Tablet PO 10 mg BID [place] Administration Glucagon 1 mg 10/14/24 19:30 Glucagon For Inj 1 Mg Vial IM PRN PRN Hypoglycemia Protocol Glucose 15 gm 10/14/24 19:30 Glucose Oral Gel 15 Gm Of Glucse In 37.5 Gm Tube PO PRN PRN Hypoglycemia Protocol Guaifenesin/Dextromethorphan 10 ml 10/17/24 17:49 10/20/24 16:59 Guaifenesin/Dextromethorphan 10 Ml Udc PO 10 ml Q4H PRN Administration Cough Hydrochlorothiazide 25 mg 10/15/24 09:00 10/21/24 09:11 Hydrochlorothiazide 25 Mg Tablet PO Not Given DAILY [facility] Dextrose 1,000 mls @ 100 mls/hr 10/14/24 19:30 Dextrose 5% 1,000 Ml IVPB PRN PRN Hypoglycemia Protocol Sodium Chloride 1,000 mls @ 125 mls/hr 10/19/24 17:00 10/21/24 14:17 Normal Saline Iv IV CONT 125 mls/hr .Q8H [place] Administration Sodium Chloride 250 mls @ 30 mls/hr 10/21/24 07:44 Normal Saline Iv IV CONT 10/21/24 16:03 .Q8H20M STA Lactated Ringer's 1,000 mls @ 150 mls/hr 10/21/24 14:00 Lr - Lactated Ringers Iv IV CONT .Q6H40M [facility] Insulin Aspart 2 - 5 units 10/15/24 08:00 10/21/24 12:39 Insulin Aspart (*Bkc) 100 Units/Ml SUB-Q 2 units TIDWM [place] Administration Protocol Insulin Aspart 1 - 2 units 10/14/24 21:00 10/20/24 21:36 Insulin Aspart (*Bkc) 100 Units/Ml SUB-Q 1 units HS [facility] Administration Protocol Insulin Glargine 24 units 10/15/24 21:00 10/20/24 21:35 Insulin Glargine (*Bkc) 100 Units/Ml 0.2 units/kg (24 units) 24 units SUB-Q Administration HS [facility] Lisinopril 20 mg 10/15/24 09:00 10/21/24 09:06 Lisinopril 20 Mg Tablet PO 20 mg DAILY [place] Administration Non-Formulary ( 1 each 10/15/24 09:00 10/21/24 09:04 Bictegravir Sodium/ PO 11/14/24 08:59 1 each Emtricitabine/ DAILY [place] Administration Tenofovir Alafenamide Fumar 50 Mg-...) Pantoprazole Sodium 40 mg 10/16/24 11:25 10/21/24 09:10 Pantoprazole 40 Mg Tablet PO 40 mg QAM [place] Administration Perflutren Lipid Microsphere 0 ml 10/19/24 16:58 Perflutren Lipid Microspheres 1.5 Ml Vial Diluted To 10 Ml Total Volume IV PUSH 10/22/24 16:58 ONCE PRN adequate visualization Protocol Perflutren Lipid Microsphere 0 ml 10/19/24 17:07 Perflutren Lipid Microspheres 1.5 Ml Vial Diluted To 10 Ml Total Volume IV PUSH 10/22/24 17:07 ONCE PRN adequate visualization Protocol Polyethylene Glycol 119 gm 10/21/24 20:00 Polyethylene Glycol 3350 238 Gm Bottle PO 10/22/24 05:01 BID@0500,2000 [facility] Polysaccharide Iron Complex 150 mg 10/16/24 17:00 10/21/24 09:04 Polysaccharide Iron Complex 150 Mg Capsule PO 150 mg BIDWM [place] Administration Pravastatin Sodium 40 mg 10/15/24 09:00 10/21/24 09:06 Pravastatin Sodium 20 Mg Tablet PO 40 mg DAILY [place] Administration Tamsulosin HCl 0.4 mg 10/14/24 23:05 10/20/24 21:34 Tamsulosin Hcl 0.4 Mg Capsule PO 0.4 mg HS [facility] Administration Radiology Results: ITS Impressions Head CT 10/14/24 11:41 IMPRESSION: 1. Normal brain. Chest X-Ray 10/19/24 15:35 IMPRESSION: 1. No acute cardiopulmonary disease. Chest/Abdomen/Pelvis CT 10/20/24 14:52 IMPRESSION: 1. Right lower lobe pneumonia. Labs Labs: Laboratory Results - last 24 hr 10/19/24 10/20/24 10/20/24 14:39 16:13 20:32 WBC RBC Hgb Hct MCV MCH MCHC RDW Plt Count MPV Immature Gran % (Auto) Neut % (Auto) Lymph % (Auto) [place] % (Auto) Eos % (Auto) Baso % (Auto) Lymph # (Auto) [place] # (Auto) Eos # (Auto) Baso # (Auto) Abs Immat Gran (auto) Absolute Neuts (auto) Absolute Nucleated RBC Nucleated RBC % Sodium Potassium Chloride Carbon Dioxide Anion Gap BUN Creatinine Estim Creat Clear Calc Estimated GFR Glucose POC Capillary Glucose 245 H 276 H Calcium Magnesium Total Bilirubin AST ALT Alkaline Phosphatase Total Protein Albumin Absolute Lymphocytes 2114 % CD4 Cells 35 Absolute CD4 Count 748 Blood Type Antibody Screen Crossmatch 10/21/24 10/21/24 10/21/24 07:24 07:53 08:04 WBC 9.0 RBC 2.40 L Hgb 6.9 L* Hct 21.9 L MCV 91.3 MCH 28.8 MCHC 31.5 L RDW 15.0 H Plt Count 298 MPV 9.5 Immature Gran % (Auto) 0.6 H Neut % (Auto) 68.1 Lymph % (Auto) 19.0 [place] % (Auto) 10.3 H Eos % (Auto) 1.6 Baso % (Auto) 0.4 Lymph # (Auto) 1.70 [place] # (Auto) 0.9 H Eos # (Auto) 0.1 Baso # (Auto) 0.0 Abs Immat Gran (auto) 0.05 H Absolute Neuts (auto) 6.1 Absolute Nucleated RBC 0.000 Nucleated RBC % 0.0 Sodium 137 Potassium 4.0 Chloride 104 Carbon Dioxide 28 Anion Gap 5 BUN 22 H D Creatinine 0.72 Estim Creat Clear Calc 117 Estimated GFR > 60 Glucose 169 H POC Capillary Glucose 171 H Calcium 7.9 L Magnesium 1.9 Total Bilirubin 0.6 AST 19 ALT 17 Alkaline Phosphatase 71 Total Protein 6.0 L Albumin 2.6 L Absolute Lymphocytes % CD4 Cells Absolute CD4 Count Blood Type A Positive Antibody Screen Negative Crossmatch See Detail 10/21/24 11:07 WBC RBC Hgb Hct MCV MCH MCHC RDW Plt Count MPV Immature Gran % (Auto) Neut % (Auto) Lymph % (Auto) [place] % (Auto) Eos % (Auto) Baso % (Auto) Lymph # (Auto) [place] # (Auto) Eos # (Auto) Baso # (Auto) Abs Immat Gran (auto) Absolute Neuts (auto) Absolute Nucleated RBC Nucleated RBC % Sodium Potassium Chloride Carbon Dioxide Anion Gap BUN Creatinine Estim Creat Clear Calc Estimated GFR Glucose POC Capillary Glucose 234 H Calcium Magnesium Total Bilirubin AST ALT Alkaline Phosphatase Total Protein Albumin Absolute Lymphocytes % CD4 Cells Absolute CD4 Count Blood Type Antibody Screen Crossmatch Quality VTE Prophylaxis VTE prophylaxis: mechanical ordered
[2024-10-21 15:23] LABS: HIV 1 RNA PCR 1.51 (NOT DETECTED); HIV 1 RNA PCR 32 copies/mL (NOT DETECTED)
--- NOTE | 2024-10-21 15:23 | PCPTNOTE ---
On 10/21/24, the student, RICHARD Lan, provided care and completed [facility] documentation on this patient. I have reviewed the student's documentation and agree with the findings.
[2024-10-21 15:40] LABS: Hematocrit 27.5 % (42.0-52.0); Hemoglobin 8.6 g/dL (14.0-18.0)
[2024-10-21 16:53] LABS: Glucose Point of Care 254 mg/dl (65-105)
[2024-10-21] MEDS: FLUoxetine HCL 20 MG CAPSULE PO (17:48)
[2024-10-21 21:07] LABS: Glucose Point of Care 177 mg/dl (65-105)
[2024-10-21] MEDS: carvediloL 6.25 MG TABLET PO (21:14)
[2024-10-21] MEDS: polyethylene glycoL 3350 238 GM BOTTLE 119 GM PO (21:15)
[2024-10-21] MEDS: TAMSULOSIN HCL 0.4 MG CAPSULE PO (21:15)
[2024-10-21] MEDS: INSULIN GLARGINE (*BKC) 100 UNITS/ML 24 UNITS SUB-Q (21:16)
[2024-10-22] VITALS (11 sets, daily range): BP systolic 119–158; BP diastolic 62–93; PULSE 69–103; RESP 16–24; TEMP 36.1–37.1; O2SAT 97–100
[2024-10-22] MEDS: ACETAMINOPHEN 325 MG TABLET 650 MG PO (02:49)
[2024-10-22] MEDS: polyethylene glycoL 3350 238 GM BOTTLE 119 GM PO (04:45)
[2024-10-22] MEDS: SODIUM CHLORIDE 0.9% IV 1,000 ML 125 ML IV CONT (06:44)
[2024-10-22 07:58] LABS: Basophils Absolute Auto 0.1 K/mm3 (0.0-0.1); Basophils Percent Auto 0.6 % (0.2-1.2); Eosinophils Absolute Auto 0.2 K/mm3 (0-0.3); Eosinophils Percent Auto 2.1 % (0-4.4); Hematocrit 25.5 % (42.0-52.0); Hemoglobin 7.9 g/dL (14.0-18.0); Immature Granulocyte Absolute 0.06 K/mm3 (0.00-0.031); Immature Granulocyte Percent A 0.7 % (0-0.5); Lymphocytes Absolute Auto 1.53 K/mm3 (0.9-3.2); Lymphocytes Percent Auto 18.7 % (18.3-44.2); Mean Corpuscular Hemoglobin 28.8 pg (26-34); Mean Corpuscular Volume 93.1 fl (80-100); Monocytes Absolute Auto 0.8 K/mm3 (0.1-0.6); Monocytes Percent Auto 9.7 % (2.6-8.5); Neutrophils Absolute Auto 5.6 K/mm3 (1.3-6.7); Neutrophils Percent Auto 68.2 % (45.5-73.1); Platelet Count Result 331 k/mm3 (150-375); Red Blood Count 2.74 M/mm3 (4.6-6.20); Red Cell Distribution Width 15.3 % (11.5-14.5); White Blood Count 8.2 K/mm3 (4.5-10.0)
[2024-10-22 08:34] LABS: Alanine Aminotransferase 18 U/L (6-50); Albumin Level 2.7 g/dL (3.5-5.1); Alkaline Phosphatase 74 U/L (38-126); Anion Gap 8 mmol/L (4-12); Aspartate Amino Transferase 16 U/L (17-59); Bilirubin,Total 0.8 mg/dL (0.2-1.3); Blood Urea Nitrogen 11 mg/dL (9-20); Calcium 7.9 mg/dL (8.4-10.2); Carbon Dioxide 26 mmol/L (22-30); Chloride 102 mmol/L (98-107); Estimated CRCL calculation 117 ml/min; Estimated Glomerular Filt Rate > 60; Glucose 233 mg/dL (65-110); Magnesium 1.6 mg/dL (1.6-2.3); Potassium 3.8 mmol/L (3.4-5.0); Sodium 136 mmol/L (137-145)
--- NOTE | 2024-10-22 09:39 | PCNWS ---
Weekly nutritional screen. Patient is NPO today for EGD/colonoscopy to evaluate anemia. Tolerating previous consistent carb diet with adequate intake, 100%. No weight loss reported. No nutritional needs at this time.
--- NOTE | 2024-10-22 11:07 | PM.IMPN ---
Progress Note: A&P Assessment and Plan (1) Influenza A: Code(s): J10.1 - Influenza due to other identified influenza virus with other respiratory manifestations Status: Acute Assessment and Plan: Patient is feeling much better now. Will continue with Tamiflu (2) Respiratory syncytial virus (RSV) infection: Code(s): B33.8 - Other specified viral diseases Status: Acute Assessment and Plan: Supportive care Guaifenesin Isolation (3) HIV (human immunodeficiency virus infection): Code(s): B20 - Human immunodeficiency virus [HIV] disease Status: Acute Assessment and Plan: Continue biktarvy Patient reports his last viral load was undetectable and CD4 was around 475. He was diagnosed with HIV in 1996. He follows with PCP who manages his HIV. Ordered PCP smear, viral load and CD4 count. Added Amox/clav and doxycycline for possible superimposed bacterial infection and increased WBC. (4) Weakness: Code(s): R53.1 - Weakness Status: Acute Assessment and Plan: PT OT evaluate and treat Hydration received some fluid in the ER (5) Hypertension: Code(s): I10 - Essential (primary) hypertension Status: Acute Assessment and Plan: Continue home medications (6) BPH (benign prostatic hyperplasia): Code(s): N40.0 - Benign prostatic hyperplasia without lower urinary tract symptoms Status: Acute Assessment and Plan: Continue medications (7) Anemia: Code(s): D64.9 - Anemia, unspecified Status: Acute Assessment and Plan: hb 7.9, s/p [address] AP and chest ordered for Hypotension and anemia isat less than 4, started on IV iron 1000/1000. Follow-up with a CT abdomen and chest showed RLL pneumonia For endoscopy today GI following (8) Hypotension: Code(s): I95.9 - Hypotension, unspecified Status: Acute Assessment and Plan: Lower GI bleed Echo showed normal EF with grade [address] AP no acute changes BP stable for endoscopy Plan DVT prophylaxis SCDs pending endoscopy Subjective Date/time seen: 10/22/24 11:07 Interval history: Comfortable at bedside and awaiting endoscopy Review of Systems Review of Systems: 12 systems were reviewed and are negative except for as per HPI. All systems reviewed & are unremarkable except as noted in HPI and below Exam Narrative: General: No acute distress alert and oriented x3 HEENT: normocephalic, atraumatic. Mucous membranes moist. EOMI, PERRLA, bilateral sclera anicteric, no conjunctival injection. Neck supple without JVD, lymphadenopathy, or bruit. Respiratory: Dry cough, diminished Cardiovascular: Regular rate and rhythm, normal S1-S2 upon ascultation. Abdomen: Obese Soft, distended and nontender. Extremities: No cyanosis, clubbing, or edema present. Pulses are palpable 2/2. Active ROM to all four extremities. Neuro: Alert and orientated x 4. PERRLA. Cranial nerves 2-12 intact without focal deficit. Skin: Warm, dry, and intact, without rash, erythema, or lesion. Psych: pleasant, cooperative, normal speech, normal affect, no hallucinations, no dysarthia Objective Data Vital Signs Vital Signs: Vital Signs - 24 hr 10/21/24 11:13 10/21/24 11:29 10/21/24 11:40 Temperature 98 F 98 F 99.3 F Pulse Rate 80 80 76 Respiratory Rate 16 16 20 Blood Pressure 137/72 130/79 137/72 Pulse Oximetry 97 97 99 Oxygen Delivery 10/21/24 12:29 10/21/24 13:29 10/21/24 13:46 Temperature 97.5 F L 97 F L 97.5 F L Pulse Rate 69 72 71 Respiratory Rate 16 16 20 Blood Pressure 114/63 126/62 127/66 Pulse Oximetry 100 100 100 Oxygen Delivery 10/21/24 14:00 10/21/24 16:00 10/21/24 20:00 Temperature 98 F 97.8 F 97.8 F Pulse Rate 70 80 82 Respiratory Rate 16 20 18 Blood Pressure 133/66 126/64 130/68 Pulse Oximetry 100 100 100 Oxygen Delivery 10/21/24 21:14 10/21/24 23:56 10/22/24 04:00 Temperature 97.8 F 97.8 F Pulse Rate 85 70 69 Respiratory Rate 20 20 Blood Pressure 125/55 L 119/62 Pulse Oximetry 100 100 Oxygen Delivery 10/22/24 08:00 10/22/24 08:00 Temperature 97.0 F L Pulse Rate 70 Respiratory Rate 20 Blood Pressure 142/75 H Pulse Oximetry 99 Oxygen Delivery Room Air Intake/Output Intake/Output: Intake & Output 10/19/24 10/20/24 10/21/24 10/22/24 23:59 23:59 23:59 23:59 Intake Total 1920 5195 4863 306.3 Output Total 600 3550 1650 Balance 1320 1645 3240 306.3 Meds/Results Medications: Active Medications Generic Name Dose Route Start Last Admin Trade Name Freq PRN Reason Stop Dose Admin Acetaminophen 650 mg 10/14/24 19:30 10/22/24 02:49 Acetaminophen 325 Mg Tablet PO 650 mg Q4H PRN Administration Mild Pain (1-3) or Fever Amoxicillin/Clavulanate Potassium 1 tablet 10/19/24 14:30 10/22/24 09:06 Amoxicillin/Clavulanate K 875-125 Mg Tab PO 10/25/24 21:01 Not Given Q12HR [place] Carvedilol 6.25 mg 10/14/24 23:05 10/22/24 09:06 Carvedilol 6.25 Mg Tablet PO Not Given Q12HR [place] Dextrose 12.5 gm 10/14/24 19:30 Dextrose 50% 25 Gm/50 Ml Syringe IV PUSH PRN PRN Hypoglycemia Protocol Doxycycline Hyclate 100 mg 10/19/24 14:30 10/22/24 09:06 Doxycycline Hyclate 100 Mg Tablet PO 10/23/24 21:01 Not Given Q12HR [place] Fluoxetine HCl 20 mg 10/14/24 23:05 10/21/24 17:48 Fluoxetine Hcl 20 Mg Capsule PO 20 mg QPM [place] Administration Gabapentin 600 mg 10/14/24 22:55 10/22/24 09:06 Gabapentin 300 Mg Capsule PO Not Given Q12HR [place] Glipizide 10 mg 10/17/24 17:00 10/22/24 09:06 Glipizide 5 Mg Tablet PO Not Given BID [place] Glucagon 1 mg 10/14/24 19:30 Glucagon For Inj 1 Mg Vial IM PRN PRN Hypoglycemia Protocol Glucose 15 gm 10/14/24 19:30 Glucose Oral Gel 15 Gm Of Glucse In 37.5 Gm Tube PO PRN PRN Hypoglycemia Protocol Guaifenesin/Dextromethorphan 10 ml 10/17/24 17:49 10/20/24 16:59 Guaifenesin/Dextromethorphan 10 Ml Udc PO 10 ml Q4H PRN Administration Cough Hydrochlorothiazide 25 mg 10/15/24 09:00 10/22/24 09:07 Hydrochlorothiazide 25 Mg Tablet PO Not Given DAILY [place] Dextrose 1,000 mls @ 100 mls/hr 10/14/24 19:30 Dextrose 5% 1,000 Ml IVPB PRN PRN Hypoglycemia Protocol Sodium Chloride 1,000 mls @ 75 mls/hr 10/19/24 17:00 10/22/24 09:11 Normal Saline Iv IV CONT 75 mls/hr .[id number] [place] Infusion Lactated Ringer's 1,000 mls @ 150 mls/hr 10/21/24 14:00 Lr - Lactated Ringers Iv IV CONT .[id number] REPLACED BY [facility] Insulin Aspart 2 - 5 units 10/15/24 08:00 10/22/24 09:05 Insulin Aspart (*Bkc) 100 Units/Ml SUB-Q Not Given TIDWM REPLACED BY [facility] Protocol Insulin Aspart 1 - 2 units 10/14/24 21:00 10/21/24 21:18 Insulin Aspart (*Bkc) 100 Units/Ml SUB-Q Not Given HS REPLACED BY [facility] Protocol Insulin Glargine 24 units 10/15/24 21:00 10/21/24 21:16 Insulin Glargine (*Bkc) 100 Units/Ml 0.2 units/kg (24 units) 24 units SUB-Q Administration HS REPLACED BY [facility] Lisinopril 20 mg 10/15/24 09:00 10/22/24 09:07 Lisinopril 20 Mg Tablet PO Not Given DAILY REPLACED BY [facility] Non-Formulary ( 1 each 10/15/24 09:00 10/22/24 09:07 Bictegravir Sodium/ PO 11/14/24 08:59 Not Given Emtricitabine/ DAILY REPLACED BY [facility] Tenofovir Alafenamide Fumar 50 Mg-...) Pantoprazole Sodium 40 mg 10/16/24 11:25 10/22/24 09:07 Pantoprazole 40 Mg Tablet PO Not Given QAM REPLACED BY [facility] Perflutren Lipid Microsphere 0 ml 10/19/24 17:07 Perflutren Lipid Microspheres 1.5 Ml Vial Diluted To 10 Ml Total Volume IV PUSH 10/22/24 17:07 ONCE PRN adequate visualization Protocol Polysaccharide Iron Complex 150 mg 10/16/24 17:00 10/22/24 09:06 Polysaccharide Iron Complex 150 Mg Capsule PO Not Given BIDWM REPLACED BY [facility] Pravastatin Sodium 40 mg 10/15/24 09:00 10/22/24 09:07 Pravastatin Sodium 20 Mg Tablet PO Not Given DAILY REPLACED BY [facility] Tamsulosin HCl 0.4 mg 10/14/24 23:05 10/21/24 21:15 Tamsulosin Hcl 0.4 Mg Capsule PO 0.4 mg HS [place] Administration Radiology Results: ITS Impressions Head CT 10/14/24 11:41 IMPRESSION: 1. Normal brain. Chest X-Ray 10/19/24 15:35 IMPRESSION: 1. No acute cardiopulmonary disease. Chest/Abdomen/Pelvis CT 10/20/24 14:52 IMPRESSION: 1. Right lower lobe pneumonia. Labs Labs: Laboratory Results - last 24 hr 10/19/24 10/21/24 10/21/24 14:39 07:53 11:07 WBC RBC Hgb Hct MCV MCH MCHC RDW Plt Count MPV Immature Gran % (Auto) Neut % (Auto) Lymph % (Auto) [place] % (Auto) Eos % (Auto) Baso % (Auto) Lymph # (Auto) [place] # (Auto) Eos # (Auto) Baso # (Auto) Abs Immat Gran (auto) Absolute Neuts (auto) Absolute Nucleated RBC Nucleated RBC % Sodium Potassium Chloride Carbon Dioxide Anion Gap BUN Creatinine Estim Creat Clear Calc Estimated GFR Glucose POC Capillary Glucose 234 H Calcium Magnesium Total Bilirubin AST ALT Alkaline Phosphatase Total Protein Albumin HIV-1 RNA logcopies/mL 1.51 H HIV-1 RNA PCR copies/ml 32 H Blood Type A Positive Antibody Screen Negative Crossmatch See Detail 10/21/24 10/21/24 10/21/24 15:33 16:43 20:31 WBC RBC Hgb 8.6 L Hct 27.5 L MCV MCH MCHC RDW Plt Count MPV Immature Gran % (Auto) Neut % (Auto) Lymph % (Auto) [place] % (Auto) Eos % (Auto) Baso % (Auto) Lymph # (Auto) [place] # (Auto) Eos # (Auto) Baso # (Auto) Abs Immat Gran (auto) Absolute Neuts (auto) Absolute Nucleated RBC Nucleated RBC % Sodium Potassium Chloride Carbon Dioxide Anion Gap BUN Creatinine Estim Creat Clear Calc Estimated GFR Glucose POC Capillary Glucose 254 H 177 H Calcium Magnesium Total Bilirubin AST ALT Alkaline Phosphatase Total Protein Albumin HIV-1 RNA logcopies/mL HIV-1 RNA PCR copies/ml Blood Type Antibody Screen Crossmatch 10/22/24 06:55 WBC 8.2 RBC 2.74 L Hgb 7.9 L Hct 25.5 L MCV 93.1 MCH 28.8 MCHC 31.0 L RDW 15.3 H Plt Count 331 MPV 10.0 Immature Gran % (Auto) 0.7 H Neut % (Auto) 68.2 Lymph % (Auto) 18.7 [place] % (Auto) 9.7 H Eos % (Auto) 2.1 Baso % (Auto) 0.6 Lymph # (Auto) 1.53 [place] # (Auto) 0.8 H Eos # (Auto) 0.2 Baso # (Auto) 0.1 Abs Immat Gran (auto) 0.06 H Absolute Neuts (auto) 5.6 Absolute Nucleated RBC 0.000 Nucleated RBC % 0.0 Sodium 136 L Potassium 3.8 Chloride 102 Carbon Dioxide 26 Anion Gap 8 BUN 11 D Creatinine 0.72 Estim Creat Clear Calc 117 Estimated GFR > 60 Glucose 233 H POC Capillary Glucose Calcium 7.9 L Magnesium 1.6 Total Bilirubin 0.8 AST 16 L ALT 18 Alkaline Phosphatase 74 Total Protein 6.0 L Albumin 2.7 L HIV-1 RNA logcopies/mL HIV-1 RNA PCR copies/ml Blood Type Antibody Screen Crossmatch Quality VTE Prophylaxis VTE prophylaxis: mechanical ordered
--- NOTE | 2024-10-22 11:30 | PC.NURSE ---
Patient off of unit to GI lab
[2024-10-22] MEDS: LACTATED RINGERS 1,000 ML 150 ML IV CONT (11:55)
--- NOTE | 2024-10-22 12:07 | P.PNAN_ITS ---
Anes - Initial Pre Proc Eval Procedure: Operation Date: 10/22/24 14:30 Proposed Procedures p Esophagogastroduodenoscopy & Colonoscopy - Cordell Phillip MD Date/Time: 10/22/24 12:07 Surgeon: Nic Ortiz MD Pre Op Diagnosis: flu a Patient Data Age: 63 Gender: M Height: 1.78 m Weight: 122 kg Last Vital Signs Temp 97.7 F 10/22/24 11:48 Pulse 77 10/22/24 11:48 Resp 18 10/22/24 11:48 BP 125/93 H 10/22/24 11:48 Pulse Ox 100 10/22/24 11:48 O2 Del Method Room Air 10/22/24 11:48 Allergies Allergy/AdvReac Type Severity Reaction Status Date / Time abacavir Allergy Unknown platelet Verified 10/22/24 11:44 Sulfa (Sulfonamide Allergy Unknown Rash Verified 10/22/24 11:44 Antibiotics) Home Medications ?Medication ?Instructions ?Recorded ?Confirmed ?Type amoxicillin 875 mg-potassium 1 tablet PO Q12H 10/14/24 10/14/24 History clavulanate 125 mg tablet aspirin 81 mg tablet,delayed 81 mg PO BID 10/14/24 10/14/24 History release bictegravir 50 mg-emtricitabine 1 tablet PO DAILY 10/14/24 10/14/24 History 200 mg-tenofovir alafenam 25 mg tablet (Biktarvy) carvedilol 6.25 mg tablet 6.25 mg PO BID 10/14/24 10/14/24 History empagliflozin 25 mg tablet 25 mg PO DAILY 10/14/24 10/14/24 History (Jardiance) fluoxetine 20 mg capsule 20 mg PO QPM 10/14/24 10/14/24 History gabapentin 600 mg tablet 600 mg PO Q12H 10/14/24 10/14/24 History glipizide 10 mg tablet 10 mg PO BID 10/14/24 10/14/24 History insulin glargine 100 unit/mL (3 300 unit subcut QPM 10/14/24 10/14/24 History mL) subcutaneous pen (Lantus Solostar U-100 Insulin) lisinopril 20 1 tablet PO DAILY 10/14/24 10/14/24 History mg-hydrochlorothiazide 25 mg tablet naproxen 500 mg tablet 500 mg PO Q12H 10/14/24 10/14/24 History pravastatin 40 mg tablet 40 mg PO DAILY 10/14/24 10/14/24 History tamsulosin 0.4 mg capsule 0.4 mg PO HS 10/14/24 10/14/24 History Laboratory Tests 10/19/24 10/21/24 10/21/24 14:39 07:53 15:33 WBC RBC Hgb 8.6 L g/dL (14.0-18.0) Hct 27.5 L % (42.0-52.0) MCV MCH MCHC RDW Plt Count MPV Immature Gran % (Auto) Neut % (Auto) Lymph % (Auto) [place] % (Auto) Eos % (Auto) Baso % (Auto) Lymph # (Auto) [place] # (Auto) Eos # (Auto) Baso # (Auto) Abs Immat Gran (auto) Absolute Neuts (auto) Absolute Nucleated RBC Nucleated RBC % Sodium Potassium Chloride Carbon Dioxide Anion Gap BUN Creatinine Estim Creat Clear Calc Estimated GFR Glucose POC Capillary Glucose Calcium Magnesium Total Bilirubin AST ALT Alkaline Phosphatase Total Protein Albumin HIV-1 RNA logcopies/mL 1.51 H (NOT DETECTED) HIV-1 RNA PCR copies/ml 32 H copies/mL (NOT DETECTED) Crossmatch See Detail 10/21/24 10/21/24 10/22/24 16:43 20:31 06:55 WBC 8.2 K/mm3 (4.5-10.0) RBC 2.74 L M/mm3 (4.6-6.20) Hgb 7.9 L g/dL (14.0-18.0) Hct 25.5 L % (42.0-52.0) MCV 93.1 fl (80-100) MCH 28.8 pg (26-34) MCHC 31.0 L g/dl (32-36) RDW 15.3 H % (11.5-14.5) Plt Count 331 k/mm3 (150-375) MPV 10.0 fl (7.4-10.4) Immature Gran % (Auto) 0.7 H % (0-0.5) Neut % (Auto) 68.2 % (45.5-73.1) Lymph % (Auto) 18.7 % (18.3-44.2) [place] % (Auto) 9.7 H % (2.6-8.5) Eos % (Auto) 2.1 % (0-4.4) Baso % (Auto) 0.6 % (0.2-1.2) Lymph # (Auto) 1.53 K/mm3 (0.9-3.2) [place] # (Auto) 0.8 H K/mm3 (0.1-0.6) Eos # (Auto) 0.2 K/mm3 (0-0.3) Baso # (Auto) 0.1 K/mm3 (0.0-0.1) Abs Immat Gran (auto) 0.06 H K/mm3 (0.00-0.031) Absolute Neuts (auto) 5.6 K/mm3 (1.3-6.7) Absolute Nucleated RBC 0.000 K/mm3 (0.0-0.012) Nucleated RBC % 0.0 % (0.0-0.2) Sodium 136 L mmol/L (137-145) Potassium 3.8 mmol/L (3.4-5.0) Chloride 102 mmol/L (98-107) Carbon Dioxide 26 mmol/L (22-30) Anion Gap 8 mmol/L (4-12) BUN 11 D mg/dL (9-20) Creatinine 0.72 mg/dL (0.7-1.3) Estim Creat Clear Calc 117 ml/min Estimated GFR > 60 (59 - ) Glucose 233 H mg/dL (65-110) POC Capillary Glucose 254 H mg/dl 177 H mg/dl (65-105) (65-105) Calcium 7.9 L mg/dL (8.4-10.2) Magnesium 1.6 mg/dL (1.6-2.3) Total Bilirubin 0.8 mg/dL (0.2-1.3) AST 16 L U/L (17-59) ALT 18 U/L (6-50) Alkaline Phosphatase 74 U/L (38-126) Total Protein 6.0 L g/dL (6.3-8.2) Albumin 2.7 L g/dL (3.5-5.1) HIV-1 RNA logcopies/mL HIV-1 RNA PCR copies/ml Crossmatch Patient hx anesthesia problems: none Family hx anesthesia problems: none Results Review: All pre-operative results and documents have been reviewed as part of the pre- operative evaluation. [facility] [place] Past Medical History Medical History Hypertension BPH (benign prostatic hyperplasia) HIV (human immunodeficiency virus infection) COVID Surgical History Surgical History History of tonsillectomy (~1993) Family History Family History Sibling Acute myocardial infarction Diabetes mellitus Mother Asthma Diabetes mellitus Other Colon cancer Father Chronic obstructive pulmonary disease Social History Social History Smoking status: Never smoker Second hand tobacco smoke exposure: Yes Alcohol intake: former Substance use: never Substance use type: does not use Do You Feel Safe in your Home?: Yes Lack of Transportation: No Lack of Food: Never True Current Housing: I Have Housing Concerned About Future Housing: No Difficulty Paying Gas/Electric Bills: No Difficulty Paying for Meds: No Currently Unemployed: No Education: High School Diploma/GED Difficulty w/ Childcare or Family Care: No Gender identity (if verbalized by the patient): Male Spiritual care concerns: No Anes - Eval Final PreProcedure Day of Procedure 10/22/24 12:07 Patient weight: morbidly obese Lungs: normal air movement Airway: Mallampati scale class III Neurological: alert and oriented Last oral intake: >/= 8 hours ASA classification: IV Emergent: no Anesthetic plan: proceed Anesthesia type and monitoring: general GIVS and standard monitoring Results Review: All pre-operative results and documents have been reviewed as part of the pre- operative evaluation. Anemia, s/p 1 U PRBCs, DM, HTN, mobesity, recent Flu/RSV improved. HIV. Informed Consent: The patient's anesthetic plan and its attendant risks and benefits were discussed with the patient/family/POA. Questions were solicited and answers provided to the satisfaction of the patient/family/POA.
--- NOTE | 2024-10-22 13:12 | SUR.OPER ---
egd ended at 1305 and colonoscopy started at 1312
[2024-10-22] MEDS: SIMETHICONE ORAL SUSPENSION 20 MG/0.3 ML 30 ML BOTTLE PO (13:18)
[2024-10-22 13:41] LABS: Glucose Point of Care 169 mg/dl (65-105)
[2024-10-22 16:39] LABS: Glucose Point of Care 194 mg/dl (65-105)
[2024-10-22] MEDS: glipiZIDE 5 MG TABLET 10 MG PO (18:24)
[2024-10-22] MEDS: FLUoxetine HCL 20 MG CAPSULE PO (18:24)
[2024-10-22] MEDS: POLYSACCHARIDE IRON COMPLEX 150 MG CAPSULE PO (18:25)
[2024-10-22] MEDS: AMOXICILLIN/CLAVULANATE K 875-125 MG TAB 1 TABLET PO (21:16)
[2024-10-22] MEDS: carvediloL 6.25 MG TABLET PO (21:16)
[2024-10-22] MEDS: DOXYCYCLINE HYCLATE 100 MG TABLET PO (21:16)
[2024-10-22] MEDS: TAMSULOSIN HCL 0.4 MG CAPSULE PO (21:16)
[2024-10-22] MEDS: GABAPENTIN 300 MG CAPSULE 600 MG PO (21:16)
[2024-10-22] MEDS: INSULIN GLARGINE (*BKC) 100 UNITS/ML 24 UNITS SUB-Q (21:25)
[2024-10-22 22:57] LABS: Glucose Point of Care 186 mg/dl (65-105)
[2024-10-23 04:55] VITALS: BP 132/58; PULSE 75; RESP 16; TEMP 36.6; O2SAT 98
[2024-10-23 07:39] LABS: Basophils Percent Auto 0.5 % (0.2-1.2); Eosinophils Absolute Auto 0.2 K/mm3 (0-0.3); Hematocrit 26.5 % (42.0-52.0); Hemoglobin 7.9 g/dL (14.0-18.0); Immature Granulocyte Absolute 0.03 K/mm3 (0.00-0.031); Immature Granulocyte Percent A 0.4 % (0-0.5); Lymphocytes Absolute Auto 1.66 K/mm3 (0.9-3.2); Lymphocytes Percent Auto 22.3 % (18.3-44.2); Mean Corpuscular HGB Conc 29.8 g/dl (32-36); Mean Corpuscular Hemoglobin 28.6 pg (26-34); Monocytes Absolute Auto 0.7 K/mm3 (0.1-0.6); Monocytes Percent Auto 9.9 % (2.6-8.5); Neutrophils Absolute Auto 4.8 K/mm3 (1.3-6.7); Neutrophils Percent Auto 64.9 % (45.5-73.1); Platelet Count Result 279 k/mm3 (150-375); Red Blood Count 2.76 M/mm3 (4.6-6.20); Red Cell Distribution Width 15.3 % (11.5-14.5); White Blood Count 7.4 K/mm3 (4.5-10.0)
[2024-10-23 07:49] LABS: Alanine Aminotransferase 16 U/L (6-50); Albumin Level 2.7 g/dL (3.5-5.1); Alkaline Phosphatase 79 U/L (38-126); Anion Gap 4 mmol/L (4-12); Aspartate Amino Transferase 14 U/L (17-59); Bilirubin,Total 0.7 mg/dL (0.2-1.3); Blood Urea Nitrogen 6 mg/dL (9-20); Calcium 8.1 mg/dL (8.4-10.2); Carbon Dioxide 28 mmol/L (22-30); Chloride 106 mmol/L (98-107); Estimated CRCL calculation 129 ml/min; Estimated Glomerular Filt Rate > 60; Glucose 138 mg/dL (65-110); Magnesium 1.6 mg/dL (1.6-2.3); Potassium 4.2 mmol/L (3.4-5.0); Sodium 138 mmol/L (137-145)
[2024-10-23 08:00] VITALS: BP 135/56; PULSE 73; RESP 18; TEMP 37.1; O2SAT 98
[2024-10-23 08:12] LABS: Glucose Point of Care 140 mg/dl (65-105)
[2024-10-23 08:43] LABS: Platelet Estimate Adequate (Adequate)
[2024-10-23 08:44] LABS: Hypochromasia 1+; Schistocytes None Seen
[2024-10-23] MEDS: DOXYCYCLINE HYCLATE 100 MG TABLET PO (08:52)
[2024-10-23] MEDS: PRAVASTATIN SODIUM 20 MG TABLET 40 MG PO (08:52)
[2024-10-23] MEDS: POLYSACCHARIDE IRON COMPLEX 150 MG CAPSULE PO ×2 (08:52→17:33)
[2024-10-23] MEDS: AMOXICILLIN/CLAVULANATE K 875-125 MG TAB 1 TABLET PO (08:53)
[2024-10-23] MEDS: glipiZIDE 5 MG TABLET 10 MG PO ×2 (08:53→17:33)
[2024-10-23] MEDS: hydroCHLOROthiazide 25 MG TABLET PO (08:53)
[2024-10-23] MEDS: PANTOPRAZOLE 40 MG TABLET PO (08:53)
[2024-10-23] MEDS: GABAPENTIN 300 MG CAPSULE 600 MG PO (08:53)
[2024-10-23] MEDS: lisinopriL 20 MG TABLET PO (08:53)
[2024-10-23] MEDS: carvediloL 6.25 MG TABLET PO (09:10)
[2024-10-23] MEDS: [UNRECOGNIZED DRUG - OTHER] PO (09:11)
[2024-10-23] MEDS: EMTRICITABINE PO (09:11)
--- NOTE | 2024-10-23 11:02 | P.PNAN_ITS ---
Anes - Prog Note Post-Op Date/Time: 10/23/24 11:02 Cardiovascular status: normal Respiratory status: normal Airway patency: baseline Mental status: baseline Post-Op hydration status: normal Vital Signs: Last Vital Signs Temp 37.1 C 10/23/24 08:00 Pulse 73 10/23/24 08:00 Resp 18 10/23/24 08:00 BP 135/56 L 10/23/24 08:00 Pulse Ox 98 10/23/24 08:00 O2 Del Method Room Air 10/22/24 13:50 Pain Score (VAS): 09/11 I/O: Intake & Output 10/22/24 10/23/24 10/23/24 23:59 07:59 15:59 Intake Total 600 600 240 Output Total 2 1050 Balance 598 -450 240 Laboratory Tests 10/23/24 07:11 10/23/24 07:11 10/22/24 10/22/24 10/22/24 13:39 16:33 21:24 WBC RBC Hgb Hct MCV MCH MCHC RDW Plt Count MPV Immature Gran % (Auto) Neut % (Auto) Lymph % (Auto) [place] % (Auto) Eos % (Auto) Baso % (Auto) Lymph # (Auto) [place] # (Auto) Eos # (Auto) Baso # (Auto) Abs Immat Gran (auto) Absolute Neuts (auto) Absolute Nucleated RBC Band Neutrophils % Nucleated RBC % Platelet Estimate Hypochromasia Schistocytes Sodium Potassium Chloride Carbon Dioxide Anion Gap BUN Creatinine Estim Creat Clear Calc Estimated GFR Glucose POC Capillary Glucose 169 H 194 H 186 H Calcium Magnesium Total Bilirubin AST ALT Alkaline Phosphatase Total Protein Albumin 10/23/24 10/23/24 07:11 07:54 WBC 7.4 RBC 2.76 L Hgb 7.9 L Hct 26.5 L MCV 96.0 MCH 28.6 MCHC 29.8 L RDW 15.3 H Plt Count 279 MPV 10.0 Immature Gran % (Auto) 0.4 Neut % (Auto) 64.9 Lymph % (Auto) 22.3 [place] % (Auto) 9.9 H Eos % (Auto) 2.0 Baso % (Auto) 0.5 Lymph # (Auto) 1.66 [place] # (Auto) 0.7 H Eos # (Auto) 0.2 Baso # (Auto) 0.0 Abs Immat Gran (auto) 0.03 Absolute Neuts (auto) 4.8 Absolute Nucleated RBC 0.000 Band Neutrophils % Not Reportable Nucleated RBC % 0.0 Platelet Estimate Adequate Hypochromasia 1+ Schistocytes None seen Sodium 138 Potassium 4.2 Chloride 106 Carbon Dioxide 28 Anion Gap 4 BUN 6 L D Creatinine 0.65 L Estim Creat Clear Calc 129 Estimated GFR > 60 Glucose 138 H POC Capillary Glucose 140 H Calcium 8.1 L Magnesium 1.6 Total Bilirubin 0.7 AST 14 L ALT 16 Alkaline Phosphatase 79 Total Protein 6.0 L Albumin 2.7 L Post-procedural complaints: none Patient Feedback: Patient satisfied with anesthetic care.
[2024-10-23 12:00] VITALS: BP 100/51; PULSE 69; RESP 18; TEMP 36.4; O2SAT 100
[2024-10-23 12:16] LABS: Glucose Point of Care 191 mg/dl (65-105)
--- NOTE | 2024-10-23 12:24 | PCPTNOTE ---
On 10/23/24, the student, RICHARD Lan, provided care and completed [facility] documentation on this patient. I have reviewed the student's documentation and agree with the findings.
--- NOTE | 2024-10-23 14:24 | PM.DS ---
DS: Admitting Diagnosis Discharge Date 10/23/24 Admitting Diagnosis Shortness of breath DS: Discharge Diagnosis Discharge Diagnosis (1) Influenza A: Code(s): J10.1 - Influenza due to other identified influenza virus with other respiratory manifestations Status: Acute (2) Respiratory syncytial virus (RSV) infection: Code(s): B33.8 - Other specified viral diseases Status: Acute (3) Iron deficiency anemia: Code(s): D50.9 - Iron deficiency anemia, unspecified Status: Acute DS: Summary Hospital Course Hospital Course: 63-year-old past medical history of HIV compliant with medications, 2 weeks ago the patient was diagnosed with bronchitis male presents the hospital with shortness of breath. Patient states that he has had COVID in the past but that was a while ago. Patient states that his breathing has progressively gotten worse over the last week and at that antibiotic is provider prescribed was not working. Today he had to call EMS because he was unable to catch his breath.. Patient complains of increased weakness and frequent cough. Denies nausea or vomiting. Patient is positive for influenza a and RSV. She was started on Tamiflu . However during the course he had hypotension and CT AP and chest showed RLL pneumonia and patient was started on Abx eventually switched to Augmentin and Doxycycline. vital sign has remained stable and patient evaluated by PT /OT today and they recommended home with home health. Also managed for iron deficiency anemia, GI was consulted and patient underwent endoscopy which showed gastric and duodenal ulcers. discharged on Protonix and will follow up with GI as instructed. Patient received one unit of pRBC and 1000mg of IV iron, hb stable today at 7.9 Continue follow up with PCP. [facility]-5 days F/u with GI as instructed Continue other home meds Time Spent with Patient Time attestation: Total time spent providing and/or coordinating discharge services: DS: Data Data Completed and Pending Completed studies during hospitalization: Pending at discharge 10/22/24 13:03 Surgical [PTH] Routine Labs on day of discharge: Labs from last 24 hours 10/23/24 10/23/24 10/23/24 12:11 07:54 07:11 WBC 7.4 RBC 2.76 L Hgb 7.9 L Hct 26.5 L MCV 96.0 MCH 28.6 MCHC 29.8 L RDW 15.3 H Plt Count 279 MPV 10.0 Immature Gran % (Auto) 0.4 Neut % (Auto) 64.9 Lymph % (Auto) 22.3 Kaufman % (Auto) 9.9 H Eos % (Auto) 2.0 Baso % (Auto) 0.5 Lymph # (Auto) 1.66 Kaufman # (Auto) 0.7 H Eos # (Auto) 0.2 Baso # (Auto) 0.0 Abs Immat Gran (auto) 0.03 Absolute Neuts (auto) 4.8 Absolute Nucleated RBC 0.000 Band Neutrophils % Not Reportable Nucleated RBC % 0.0 Platelet Estimate Adequate Hypochromasia 1+ Schistocytes None seen Sodium 138 Potassium 4.2 Chloride 106 Carbon Dioxide 28 Anion Gap 4 BUN 6 L D Creatinine 0.65 L Estim Creat Clear Calc 129 Estimated GFR > 60 Glucose 138 H POC Capillary Glucose 191 H 140 H Calcium 8.1 L Magnesium 1.6 Total Bilirubin 0.7 AST 14 L ALT 16 Alkaline Phosphatase 79 Total Protein 6.0 L Albumin 2.7 L 10/22/24 10/22/24 21:24 16:33 WBC RBC Hgb Hct MCV MCH MCHC RDW Plt Count MPV Immature Gran % (Auto) Neut % (Auto) Lymph % (Auto) Kaufman % (Auto) Eos % (Auto) Baso % (Auto) Lymph # (Auto) Kaufman # (Auto) Eos # (Auto) Baso # (Auto) Abs Immat Gran (auto) Absolute Neuts (auto) Absolute Nucleated RBC Band Neutrophils % Nucleated RBC % Platelet Estimate Hypochromasia Schistocytes Sodium Potassium Chloride Carbon Dioxide Anion Gap BUN Creatinine Estim Creat Clear Calc Estimated GFR Glucose POC Capillary Glucose 186 H 194 H Calcium Magnesium Total Bilirubin AST ALT Alkaline Phosphatase Total Protein Albumin Discharge Plan Discharge Attending physician on discharge: Dara Fairchild Discharging Clinician: Dara Fairchild Anticipated Discharge Date/Time: 10/23/24 14:19 Patient Disposition: Home Health Service Activity: as tolerated Diet: regular Patient Instructions: Antibiotic Form Patient Language: [place] Stand Alone Forms: General Discharge Information Follow-up/Referrals: Cordell Phillip MD [Physician] - (F/u with GI as instructed ) UNKNOWN,DOCTOR [Primary Care Provider] - (F/u with PCP in 3-5 days ) Discharge Medications: New pantoprazole 40 mg Tablet,Delayed Release (Dr/Ec) 40 mg PO BID 40 Days Qty: 80 0RF doxycycline hyclate 100 mg Tablet 100 mg PO Q12HR 4 Days Qty: 8 0RF amoxicillin-pot clavulanate 875-125 mg tablet 1 tablet PO Q12H 4 Days Qty: 8 0RF Continued Biktarvy 50-200-25 mg tablet 1 tablet PO DAILY carvedilol 6.25 mg tablet 6.25 mg PO BID Jardiance 25 mg tablet 25 mg PO DAILY fluoxetine 20 mg capsule 20 mg PO QPM gabapentin 600 mg tablet 600 mg PO Q12H glipizide 10 mg tablet 10 mg PO BID insulin glargine [Lantus Solostar U-100 Insulin] 100 unit/mL (3 mL) insulin pen 300 unit SUBCUT QPM lisinopril-hydrochlorothiazide 20-25 mg tablet 1 tablet PO DAILY naproxen 500 mg tablet 500 mg PO Q12H pravastatin 40 mg tablet 40 mg PO DAILY tamsulosin 0.4 mg capsule 0.4 mg PO HS Held aspirin 81 mg tablet,delayed release (DR/EC) 81 mg PO BID Hold Instructions: Resume on 10/28/24. Hold until follow up with PCP Discontinued amoxicillin-pot clavulanate 875-125 mg tablet 1 tablet PO Q12H Date of admission: 10/17/24 13:35 Primary Care Provider: UNKNOWN,DOCTOR Admitting Provider: Nic Ortiz Attending physician on admission: Nic Ortiz Condition: Stable
[2024-10-23 17:14] LABS: Glucose Point of Care 258 mg/dl (65-105)
[2024-10-23] MEDS: FLUoxetine HCL 20 MG CAPSULE PO (17:33)
[2024-10-23] MEDS: INSULIN ASPART (*BKC) 100 UNITS/ML SUB-Q (17:33)
== END 2024-10-23 18:48 | disposition home health service (06) | DRG 383 ==
LOC: ANHED 11:20 → ANH3MEDSUR 14:52
PROVIDERS: General Practice; Internal Medicine; Internal Medicine Gastroenterology; Nurse Practitioner Gerontology; Admitting Provider Hospitalist; Emergency Provider Emergency Medicine; Visit Provider Internal Medicine
PROC: 0DJ08ZZ Inspection of Upper Intestinal Tract, Via Natural or Artificial Opening Endoscopic (ICD-10-PCS; CPT 45378; principal; 2024-10-22 14:30)
DX: K25.3 Acute gastric ulcer without hemorrhage or perforation (principal); J18.9 Pneumonia, unspecified organism; B20 Human immunodeficiency virus [HIV] disease; J10.1 Influenza due to other identified influenza virus with other respiratory manifestations; K26.7 Chronic duodenal ulcer without hemorrhage or perforation; B33.8 Other specified viral diseases; D50.9 Iron deficiency anemia, unspecified; I10 Essential (primary) hypertension; I95.9 Hypotension, unspecified; N40.0 Benign prostatic hyperplasia without lower urinary tract symptoms; Z20.822 Contact with and (suspected) exposure to COVID-19; Z79.85 Long-term (current) use of injectable non-insulin antidiabetic drugs; Z79.4 Long term (current) use of insulin; Z79.82 Long term (current) use of aspirin; Z86.16 Personal history of COVID-19
CPT/HCPCS: 36415; 36430; 70450; 71045; 71250; 74176; 80048; 80053; 81001; 82274; 82607; 82728; 82746; 82948; 83540; 83550; 83605; 83735; 85014; 85018; 85025; 85027; 85046; 86361; 86850; 86900; 86901; 86923; 87040; 87536; 87637; 88305; 88342; 93005; 93306; 96360; 96361; 96372; 97110; 97116; 97161; 97530; 99285; A9270; G0378; J1650; J1756; J1815; J2003; J2704; J7030; J7050; J7120; P9016